=== PATIENT | female | born 1970 | race Caucasian/White ===

== ENCOUNTER 2016-08-04 14:51 | Day surgery (SDC) | payer BC, OTHER ==
[~2016-08-04] VITALS: Ht 154.9 cm; Wt 108.9 kg
[2016-08-04] MEDS ORDERED: ONDANSETRON 4MG/2ML VIAL (J2405) As Ordered ONE ×3 (15:49→20:31)
[2016-08-04] MEDS ORDERED: KETOROLAC 30 MG/ML VIAL (J1885) As Ordered ONE (15:49)
[2016-08-04 15:58] LABS: BASO # 0.1 K/mm3 (0.0-0.2); BASO % 0.9 % (0.0-1.0); EOS # 0.1 K/mm3 (0.0-0.50); EOS % 0.7 % (0.0-3.0); LARGE UNSTAINED CELL # 0.1 K/mm3 (0.0-0.4); LARGE UNSTAINED CELL % 0.5 % (0.0-4.0); LYMPH # 1.4 K/mm3 (1.5-4.5); LYMPH % 10.5 % (24.0-44.0); MEAN CORPUSCULAR HEMOGLOBIN 26.9 pg (27.0-33.0); MEAN CORPUSCULAR HGB CONC 32.1 g/dl (32.0-36.5); MEAN CORPUSCULAR VOLUME 83.8 fl (80.0-96.0); MONO # 0.4 K/mm3 (0.0-0.8); MONO % 2.8 % (0.0-5.0); NEUTROPHILS # 10.4 K/mm3 (1.8-7.7); NEUTROPHILS % 84.6 % (36.0-66.0); PLATELET COUNT, AUTOMATED 282 k/mm3 (150-450); WHITE BLOOD COUNT 12.3 K/mm3 (4.0-10.0)
[2016-08-04 16:12] LABS: ALBUMIN 3.5 GM/DL (3.2-5.2); ALBUMIN/GLOBULIN RATIO 0.85 (1.00-1.93); ALKALINE PHOSPHATASE 86 U/L (45-117); ALT/SGPT 19 U/L (12-78); ANION GAP 11 MEQ/L (8-16); AST/SGOT 13 U/L (15-37); BILIRUBIN,DIRECT 0.2 MG/DL (0.0-0.2); BILIRUBIN,TOTAL 0.8 MG/DL (0.2-1.0); BLOOD UREA NITROGEN 11 MG/DL (7-18); CALCIUM LEVEL 8.7 MG/DL (8.5-10.1); CARBON DIOXIDE LEVEL 24 MEQ/L (21-32); CHLORIDE LEVEL 105 MEQ/L (98-107); CREATININE FOR GFR 0.77 MG/DL (0.55-1.02); GLOMERULAR FILTRATION RATE > 60.0 (>58); GLUCOSE, FASTING 95 MG/DL (70-105); POTASSIUM SERUM 3.6 MEQ/L (3.5-5.1); SODIUM LEVEL 140 MEQ/L (136-145); TOTAL PROTEIN 7.6 GM/DL (6.4-8.2)
[2016-08-04] MEDS ORDERED: ISOVUE-370 76% 100ML VIAL (Q9967) As Ordered ONE (16:27)
--- NOTE | 2016-08-04 17:36 | REP ---
CT abdomen pelvis with IV contrast but without bowel contrast for appendicitis: Comparison is 09/13/2006. The appendix is elongated. There is a 5 ml calcification in the mid appendix as an interval change. The appendix is distended proximal to the calcification measuring 13 mm transverse diameter. Distal to the calcification. The appendix is nondistended. There is no evidence of appendiceal rupture. Findings are compatible with mid appendiceal obstruction and ensuing appendicitis. No inflammatory changes are identified at this time. The visualized lung lantigua are clear. The liver, pancreas and spleen are unremarkable. There is a cholecystectomy. The adrenals, kidneys, abdominal aorta, bowel and mesentery are otherwise unremarkable. Pelvis: There is no ascites. The the patient reportedly has a hysterectomy. Vaginal cuff and adnexa are unremarkable. There is no adenopathy. The pelvic bowel loops are unremarkable. Impression: Distension of the proximal appendix from a calculus at the mid appendix level without appendiceal inflammation or perforation at this time. The distal appendix is unremarkable. Findings are compatible with ensuing acute appendicitis. Signed by Dennis Grossman MD 08/04/2016 05:27 P
[2016-08-04] MEDS ORDERED: ZOSYN 3.375 GM VIAL (J2543) As Ordered ONE (17:50)
[2016-08-04] MEDS ORDERED: SYNT175T2 PO (18:10)
[2016-08-04] MEDS ORDERED: CALC600T10 PO (18:10)
[2016-08-04] MEDS ORDERED: ALBU83IN INH (18:10)
[2016-08-04] MEDS ORDERED: BREO1INH INH (18:10)
[2016-08-04] MEDS ORDERED: ALBU17IN INH (18:10)
[2016-08-04] MEDS ORDERED: SING10TA32 PO (18:10)
[2016-08-04] MEDS ORDERED: OMEP20CA3 PO (18:10)
[2016-08-04] MEDS ORDERED: ESTR1TAB PO (18:10)
[2016-08-04] MEDS ORDERED: MAGN500T2 PO (18:10)
[2016-08-04] MEDS ORDERED: FLUO40CA PO (18:10)
[2016-08-04] MEDS ORDERED: MORPHINE 4 MG/ML 1ML SYRINGE As Ordered ONE (19:15)
[2016-08-04] MEDS ORDERED: METOCLOPRAMIDE INJ 10MG/2ML VIAL (J2765) As Ordered ONE (19:16)
[2016-08-04] MEDS ORDERED: LIDOCAINE 1% SDV INJ 30 ML VIAL As Ordered ONE (19:40)
[2016-08-04] MEDS ORDERED: BUPIVACAINE HCL 0.25% 30 ML VIAL As Ordered ONE (19:41)
[2016-08-04] MEDS ORDERED: MIDAZOLAM INJ 2 MG/2 ML VIAL (J2250) As Ordered ONE (19:43)
[2016-08-04] MEDS ORDERED: fentaNYL 100 MCG/2 ML INJECTION (J3010) As Ordered ONE (19:44)
--- NOTE | 2016-08-04 19:57 | EDDOCDS ---
Physician Documentation [facility] Name: Arabella Cleveland Age: 46 yrs Sex: Female : 1970 Arrival Date: 08/04/2016 Time: 14:51 Bed I3 / M3 Private MD: Linh Murillo Disposition: 08/04/16 17:46 Hospitalization ordered by Ian Silva for Inpatient Admission. Preliminary diagnosis is Acute appendicitis. - Bed requested for Admit. - Status is Inpatient Admission. jo3 - Condition is Stable. - Problem is new. - Symptoms are unchanged. Historical: - Allergies: No known drug Allergies; - Home Meds: 1. brieo daily 2. estradiol 0.5 mg Oral tab once daily 3. Proventil Inhl 2.5 mg three times a day 4. Prozac 40 mg Oral cap 1 cap once daily 5. Singulair 10 mg Oral tab 1 tab once daily 6. Synthroid 75 mcg oral tab once daily - PMHx: Asthma; Depression; COPD; Hypertension; Hypothyroidism; - PSHx: Tonsillectomy; ; Cholecystectomy; Hysterectomy; Adenoidectomy; Laparoscopy; - Social history: Smoking status: Patient states was never smoker of tobacco. No barriers to communication noted, The patient speaks fluent [place] Citizen, Speaks appropriately for age. - Family history: Not pertinent. - : The pt / caregiver states he / she is not on anticoagulants. Home medication list is obtained from [employer] import data. - Exposure Risk Screening:: None identified. 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 1 in. (154.94 cm); Pain 3/10; 17:27 BP 118 / 64; Pulse 70; Resp 18; Temp 97(O); Pulse Ox 97% ; srm 19:46 BP 116 / 59; Pulse 80; Resp 16; Temp 97.5(O); Pulse Ox 95% on R/A; Pain 3/10; lf1 14:53 Body Mass Index 45.35 (108.86 kg, 154.94 cm) elp MDM: 15:06 Urinalysis Ordered. EDMS 15:06 Urine Culture Ordered. EDMS 15:39 NS 0.9% 1000 ml IV at bolus once ordered. cc10 15:39 Ondansetron 4 mg IVP once ordered. cc10 15:39 ketorolac 30 mg IVP once ordered. cc10 15:39 IV Saline Lock ordered. cc10 15:39 Undress patient appropriately for examination ordered. cc10 15:40 Basic Metabolic Profile Ordered. EDMS 15:40 CBC with Diff Ordered. EDMS 15:40 Lipase Ordered. EDMS 15:40 Liver Profile Ordered. EDMS 15:40 CT ABD & PELVIS: IV Contrast Only Ordered. EDMS 15:40 NOTHING BY MOUTH+DIET ordered. EDMS 16:02 Financial registration complete. zo 16:03 [facility] Payment Agreement was scanned into [employer] and attached to record. zo 16:04 CBC with Diff Reviewed. mo1 16:24 Liver Profile Reviewed. mo1 16:24 Basic Metabolic Profile Reviewed. mo1 16:25 Lipase Reviewed. mo1 17:20 Urinalysis Reviewed. mo1 17:43 Piperacillin-Tazobactam 3.375 grams IVPB once over 30 mins; dilute in 50mL of NS or D5W mo1 ordered. 17:44 BED REQUEST+ADM ordered. EDMS 18:52 Ondansetron 4 mg IVP once ordered. mo1 19:12 Metoclopramide 10 mg IV at 40 mg/hr once over 15 mins ordered. mo1 19:12 morphine 4 mg IVP once ordered. mo1 Administered Medications: 15:54 Drug: NS 0.9% 1000 ml Route: IV; Rate: bolus; Site: left antecubital; [facility] 18:25 Follow up: IV Status: Completed infusion; IV Intake: 1000ml [facility] 15:55 Drug: Ondansetron 4 mg Route: IVP; Site: left antecubital; [facility] 15:55 Drug: ketorolac 30 mg [ketorolac 30 mg/mL (1 mL) injection solution (1 mL)] Route: IVP; [facility] Site: left antecubital; 18:00 Drug: Piperacillin-Tazobactam 3.375 grams [piperacillin-tazobactam 3.375 gram [facility] intravenous solution] Route: IVPB; Infused Over: 30 mins; Site: left antecubital; 18:56 Drug: Ondansetron 4 mg Route: IVP; Site: left antecubital; k 19:25 Drug: morphine 4 mg [morphine 4 mg/mL intravenous cartridge (1 mL)] Route: IVP; Site: jo3 left antecubital; 19:30 Drug: Metoclopramide 10 mg [metoclopramide 5 mg/mL injection solution] Route: IV; Rate: jo3 40 mg/hr; Infused Over: 15 mins; Site: left antecubital; Signatures: Dispatcher [employer] EDSami Sarabia RN RN jamik Kassie HoffmanRN RN ck1 Letty PaulRN RN jo3 Miriam Ventura Michael, PA PA mo1 Neil Jarrett PA-C PA-C cc10 Apryl Woods PA-C PA-C dt4 The chart was reviewed and I authenticate all verbal orders and agree with the evaluation and treatment provided.Corrections: (The following items were deleted from the chart) 15:39 15:05 UCG by Nursing ordered. dt4 cc10 Attachments: 16:03 [facility] Payment Agreement zo MTDD
--- NOTE | 2016-08-04 19:58 | EDDOCDS ---
Nurse's Notes [facility] Name: Arabella Cleveland Age: 46 yrs Sex: Female : 1970 Arrival Date: 08/04/2016 Time: 14:51 Bed I3 / M3 Private MD: Linh Murillo Diagnosis: Acute appendicitis Presentation: 08/04 14:55 Presenting complaint: Patient states: right lower abdominal pain radiating to right ck1 flank. Acute neurological deficits are not present. Mechanism of Injury: No Mechanism of Injury. Adult Sepsis Screening: The patient does not have new or worsening altered mentation. Patient's respiratory rate is less than 22. Systolic blood pressure is greater than 100. Patient has a qSOFA score of 0- Negative Sepsis Screen. Suicide/Homicide risk assessment- the patient denies having any suicidal and/or homicidal ideations and does not present with any other emotional, behavioral or mental health complaints. Status: Patient is not a tax services professional or dependent. Transition of care: patient was not received from another setting of care. 14:55 Acuity: STEVEN Level 3 ck1 14:55 Method Of Arrival: Walkin/Carried/Asstd ck1 Triage Assessment: 14:57 General: Appears in no apparent distress, comfortable, Behavior is appropriate for age, ck1 cooperative. Pain: Location: right lower quadrant Pain currently is 3 out of 10 on a pain scale. Pain radiates to right flank. HIV screening NA for this visit Offered previously. Respiratory: Respiratory effort is unlabored, Respiratory pattern is regular, symmetrical. GI: Reports diarrhea, nausea, vomiting. : Reports burning with urination. Derm: Skin is intact, is healthy with good turgor, Skin is pink, warm & dry. Musculoskeletal: Circulation, motion, and sensation intact Range of motion intact in all extremities. 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 brieo daily 2. estradiol 0.5 mg Oral tab once daily 3. Proventil Inhl 2.5 mg three times a day 4. Prozac 40 mg Oral cap 1 cap once daily 5. Singulair 10 mg Oral tab 1 tab once daily 6. Synthroid 75 mcg oral tab once daily - PMHx: Asthma; Depression; COPD; Hypertension; Hypothyroidism; - PSHx: Tonsillectomy; ; Cholecystectomy; Hysterectomy; Adenoidectomy; Laparoscopy; - Social history: Smoking status: Patient states was never smoker of tobacco. No barriers to communication noted, The patient speaks fluent Citizen [place], Speaks appropriately for age. - Family history: Not pertinent. - : The pt / caregiver states he / she is not on anticoagulants. Home medication list is obtained from [employer] import data. - Exposure Risk Screening:: None identified. Screenin:55 Screening information is obtained from the patient. Fall risk: No risks identified. erin Assistance ADL's: requires no assistance with activities of daily living. Abuse/DV Screen: The patient / caregiver reports he/she is: not in a situation that causes fear, pain or injury. Nutritional screening: No deficits noted. home support is adequate. 19:46 Advance Directives: Currently, there is no health care proxy. There is no active DNR lf1 order. There is no living will. There is no Power of Fire And Safety Helper. Assessment: 15:55 General: Appears in no apparent distress, skin warm and dry color satisfactory. Moist [facility] pink oral mucosa. Obese abdomen that is non distended with bowel sounds present x 4. Reports right flank,k discomfort and is presently unable to produce urine.. GI: Abdomen is non- distended obese, Bowel sounds present X 4 quads. Abd is soft Abd is non tender. 16:52 General: Appears CT completed and tolerated well. states pain has decreased to 1/10.. [facility] 18:00 General: Appears states 4/10 discomfort and declining pain meds when offered. [facility] 18:55 General: Appears again reports that pian is increasing. declined meds when offered. lloyd medicated for nausea without emesis. [place] here. 19:46 General: Appears in no apparent distress, comfortable, Behavior is cooperative. Pain: lf1 Location: right flank and abdomen and right lower quadrant Pain currently is 3 out of 10 on a pain scale. Neurological: Level of Consciousness is awake, alert, obeys commands, Oriented to person, place, time, Speech is normal. EENT: No deficits noted. Cardiovascular: Chest pain is denied. Respiratory: Respiratory effort is even, unlabored. GI: Denies nausea, vomiting. Derm: Skin is normal. Musculoskeletal: No deficits noted. Injury Description: No known injury. Vital Signs: 14:53 BP 136 / 97; Pulse 108; Resp 20; Temp 98.4; Pulse Ox 98% ; Weight 108.86 kg; Height 5 elp ft. 1 in. (154.94 cm); Pain 3/10; 17:27 BP 118 / 64; Pulse 70; Resp 18; Temp 97(O); Pulse Ox 97% ; srm 19:46 BP 116 / 59; Pulse 80; Resp 16; Temp 97.5(O); Pulse Ox 95% on R/A; Pain 3/10; lf1 14:53 Body Mass Index 45.35 (108.86 kg, 154.94 cm) elp Vitals: 14:53 Log In Time: August 04, 2016 at 14:51. [facility] ED Course: 14:52 Patient visited by Leonela Garner PCA. elp 14:52 Patient moved to Waiting elp 14:53 Linh Murillo is Private Physician. elp 14:53 Patient visited by Leonela Garner PCA. elp 14:53 Patient moved to Pre RCE elp 14:56 Triage Initiated ck1 15:16 Patient moved to Triage 2 rs6 15:35 Patient visited by Kassie Hoffman RN. ck1 15:36 [facility] cc10 15:36 Paolo Sethi MD is Attending Physician. cc10 15:36 Patient visited by Neil Jarrett PA-C. cc10 15:36 Patient visited by Neil Jarrett PA-C. cc10 15:38 Patient moved to I3 / M3 [facility] 15:55 The patient / caregiver is instructed regarding the plan of care and ED course. jmk 15:58 Patient visited by Sami Jameson RN. jmk 16:01 Patient name changed from Arabella\S\Elissa\S\Cleveland\S\ to Arabella\S\ \S\Cleveland. EDMS 16:03 [facility] [place] Payment Agreement was scanned into [employer] and attached to record. zo 16:04 PHCP role handed off by Neil Jarrett PA-C mo1 16:04 Paul Stanley PA is PHCP. mo1 16:58 Patient visited by Sami Jameson RN. jmk 16:58 Urine Culture Sent. jmk 16:58 Urinalysis Sent. jmk 17:28 Patient visited by Lluvia Frankel, ELIAS. srm 17:46 Ian Silva MD is Hospitalizing Provider. mo1 17:46 CT ABD & PELVIS: IV Contrast Only Returned. EDMS 18:01 Patient visited by Sami Jameson,RN. jmk 18:25 Patient visited by Sami Jameson,RN. k 18:56 Patient visited by Sami Jameson,ELIAS. jmk 18:[address] mtz. srm 19:46 IV is intact, #20 Left AC. No procedures done that require assistance. lf1 Administered Medications: 15:54 Drug: NS 0.9% 1000 ml Route: IV; Rate: bolus; Site: left antecubital; k 18:25 Follow up: IV Status: Completed infusion; IV Intake: 1000ml [facility] 15:55 Drug: Ondansetron 4 mg Route: IVP; Site: left antecubital; [facility] 15:55 Drug: ketorolac 30 mg [ketorolac 30 mg/mL (1 mL) injection solution (1 mL)] Route: IVP; [facility] Site: left antecubital; 18:00 Drug: Piperacillin-Tazobactam 3.375 grams [piperacillin-tazobactam 3.375 gram [facility] intravenous solution] Route: IVPB; Infused Over: 30 mins; Site: left antecubital; 18:56 Drug: Ondansetron 4 mg Route: IVP; Site: left antecubital; [facility] 19:25 Drug: morphine 4 mg [morphine 4 mg/mL intravenous cartridge (1 mL)] Route: IVP; Site: jo3 left antecubital; 19:30 Drug: Metoclopramide 10 mg [metoclopramide 5 mg/mL injection solution] Route: IV; Rate: jo3 40 mg/hr; Infused Over: 15 mins; Site: left antecubital; Intake: 18:25 IV: 1000.00ml; Total: 1000.00ml. [facility] Order Results: Lab Order: Urinalysis; SPEC'M 08/04/16 16:51 Test: APPEARANCE, URINE; Value: HAZY; Range: CLEAR; Status: F Test: COLOR, URINE; Value: DENISE; Range: YELLOW; Status: F Test: PH,URINE; Value: 5.0; Range: 5.0-9.0; Units: UNITS; Status: F Test: SPECIFIC GRAVITY URINE AUTO; Value: 1.028; Range: 1.002-1.035; Status: F Test: PROTEIN, URINE AUTO; Value: 1+; Range: NEGATIVE; Abnormal: Above high normal; Units: mg/dL; Status: F Test: GLUCOSE, URINE (UA) AUTO; Value: NEGATIVE; Range: NEGATIVE; Units: mg/dL; Status: F Test: KETONE, URINE AUTO; Value: TRACE; Range: NEGATIVE; Abnormal: Above high normal; Units: mg/dL; Status: F Test: UROBILINOGEN, URINE AUTO; Value: 0.2; Range: 0.0-2.0; Units: mg/dL; Status: F Test: BILIRUBIN, URINE AUTO; Value: NEGATIVE; Range: NEGATIVE; Status: F Test: NITRITE, URINE AUTO; Value: NEGATIVE; Range: NEGATIVE; Status: F Test: LEUKOCYTE ESTERASE, URINE AUTO; Value: NEGATIVE; Range: NEGATIVE; Status: F Test: BLOOD, URINE BLOOD; Value: NEGATIVE; Range: NEGATIVE; Status: F Test: WBC, URINE AUTO; Value: 2; Range: 0-3; Units: /HPF; Status: F Test: RBC, URINE AUTO; Value: 0; Range: 0-3; Units: /HPF; Status: F Test: BACTERIA, URINE AUTO; Value: 1+; Range: NEGATIVE; Abnormal: Above high normal; Status: F Test: SQUAMOUS EPITHELIAL CELL UR AU; Value: 3; Range: 0-6; Units: /HPF; Status: F Test: MUCUS, URINE; Value: LARGE; Range: NEGATIVE; Status: F Test: HYALINE CAST, URINE AUTO; Value: 0; Range: 0-1; Units: /LPF; Status: F Lab Order: Basic Metabolic Profile; SPEC'M 08/04/16 15:46 Test: GLUCOSE, FASTING; Value: 95; Range: 70-105; Units: MG/DL; Status: F Test: BLOOD UREA NITROGEN; Value: 11; Range: 7-18; Units: MG/DL; Status: F Test: CREATININE FOR GFR; Value: 0.77; Range: 0.55-1.02; Units: MG/DL; Status: F Test: GLOMERULAR FILTRATION RATE; Value: > 60.0; Range: >58; Status: F Test: SODIUM LEVEL; Value: 140; Range: 136-145; Units: MEQ/L; Status: F Test: POTASSIUM SERUM; Value: 3.6; Range: 3.5-5.1; Units: MEQ/L; Status: F Test: CHLORIDE LEVEL; Value: 105; Range: 98-107; Units: MEQ/L; Status: F Test: CARBON DIOXIDE LEVEL; Value: 24; Range: 21-32; Units: MEQ/L; Status: F Test: ANION GAP; Value: 11; Range: 8-16; Units: MEQ/L; Status: F Test: CALCIUM LEVEL; Value: 8.7; Range: 8.5-10.1; Units: MG/DL; Status: F Test Note: ; Units are mL/min/1.73 m2 Chronic Kidney Disease Staging per NKF: Stage I & II GFR >=60 Normal to Mildly Decreased Stage III GFR 30-59 Moderately Decreased Stage IV GFR 15-29 Severely Decreased Stage V GFR <15 Very Little GFR Left ESRD GFR <15 on NUCLEAR TECHNICIAN Lab Order: CBC with Diff; SPEC'M 08/04/16 15:46 Test: WHITE BLOOD COUNT; Value: 12.3; Range: 4.0-10.0; Abnormal: Above high normal; Units: K/mm3; Status: F Test: RED BLOOD COUNT; Value: 5.37; Range: 4.00-5.40; Units: M/mm3; Status: F Test: HEMOGLOBIN; Value: 14.4; Range: 12.0-16.0; Units: g/dl; Status: F Test: HEMATOCRIT; Value: 45.0; Range: 36.0-47.0; Units: %; Status: F Test: MEAN CORPUSCULAR VOLUME; Value: 83.8; Range: 80.0-96.0; Units: fl; Status: F Test: MEAN CORPUSCULAR HEMOGLOBIN; Value: 26.9; Range: 27.0-33.0; Abnormal: Below low normal; Units: pg; Status: F Test: MEAN CORPUSCULAR HGB CONC; Value: 32.1; Range: 32.0-36.5; Units: g/dl; Status: F Test: RED CELL DISTRIBUTION WIDTH; Value: 15.0; Range: 11.5-14.5; Abnormal: Above high normal; Units: %; Status: F Test: PLATELET COUNT, AUTOMATED; Value: 282; Range: 150-450; Units: k/mm3; Status: F Test: NEUTROPHILS %; Value: 84.6; Range: 36.0-66.0; Abnormal: Above high normal; Units: %; Status: F Test: LYMPH %; Value: 10.5; Range: 24.0-44.0; Abnormal: Below low normal; Units: %; Status: F Test: MONO %; Value: 2.8; Range: 0.0-5.0; Units: %; Status: F Test: EOS %; Value: 0.7; Range: 0.0-3.0; Units: %; Status: F Test: BASO %; Value: 0.9; Range: 0.0-1.0; Units: %; Status: F Test: LARGE UNSTAINED CELL %; Value: 0.5; Range: 0.0-4.0; Units: %; Status: F Test: NEUTROPHILS #; Value: 10.4; Range: 1.8-7.7; Abnormal: Above high normal; Units: K/mm3; Status: F Test: LYMPH #; Value: 1.4; Range: 1.5-4.5; Abnormal: Below low normal; Units: K/mm3; Status: F Test: MONO #; Value: 0.4; Range: 0.0-0.8; Units: K/mm3; Status: F Test: EOS #; Value: 0.1; Range: 0.0-0.50; Units: K/mm3; Status: F Test: BASO #; Value: 0.1; Range: 0.0-0.2; Units: K/mm3; Status: F Test: LARGE UNSTAINED CELL #; Value: 0.1; Range: 0.0-0.4; Units: K/mm3; Status: F Lab Order: Lipase; SPEC'M 08/04/16 15:46 Test: LIPASE; Value: 72; Range: 73-393; Abnormal: Below low normal; Units: U/L; Status: F Lab Order: Liver Profile; SPEC'M 08/04/16 15:46 Test: AST/SGOT; Value: 13; Range: 15-37; Abnormal: Below low normal; Units: U/L; Status: F Test: ALT/SGPT; Value: 19; Range: 12-78; Units: U/L; Status: F Test: ALKALINE PHOSPHATASE; Value: 86; Range: 45-117; Units: U/L; Status: F Test: BILIRUBIN,TOTAL; Value: 0.8; Range: 0.2-1.0; Units: MG/DL; Status: F Test: BILIRUBIN,DIRECT; Value: 0.2; Range: 0.0-0.2; Units: MG/DL; Status: F Test: TOTAL PROTEIN; Value: 7.6; Range: 6.4-8.2; Units: GM/DL; Status: F Test: ALBUMIN; Value: 3.5; Range: 3.2-5.2; Units: GM/DL; Status: F Test: ALBUMIN/GLOBULIN RATIO; Value: 0.85; Range: 1.00-1.93; Abnormal: Below low normal; Status: F Radiology Order: CT ABD & PELVIS: IV Contrast Only Test: CT ABD & PELVIS: IV Contrast Only REASON FOR EXAMINATION: Appendicitis; CT abdomen pelvis with IV contrast but without bowel contrast for appendicitis:; ; Comparison is 09/13/2006.; ; The appendix is elongated. There is a 5 ml calcification in the mid appendix as; an interval change. The appendix is distended proximal to the calcification; measuring 13 mm transverse diameter. Distal to the calcification. The appendix; is nondistended. There is no evidence of appendiceal rupture. Findings are; compatible with mid appendiceal obstruction and ensuing appendicitis. No; inflammatory changes are identified at this time.; ; The visualized lung lantigua are clear.; ; The liver, pancreas and spleen are unremarkable. There is a cholecystectomy.; ; The adrenals, kidneys, abdominal aorta, bowel and mesentery are otherwise; unremarkable.; ; Pelvis:; ; There is no ascites. The the patient reportedly has a hysterectomy. Vaginal; cuff and adnexa are unremarkable. There is no adenopathy. The pelvic bowel; loops are unremarkable.; ; Impression:; ; Distension of the proximal appendix from a calculus at the mid appendix level; without appendiceal inflammation or perforation at this time. The distal; appendix is unremarkable. Findings are compatible with ensuing acute; appendicitis.; ; ; ; ; Signed by; Dennis Grossman MD 08/04/2016 05:27 P; Outcome: 17:46 Decision to Hospitalize by Provider. mo1 19:56 Patient left the ED. jo3 Signatures: Dispatcher [employer] EDMS Sami Jameson,RN RN Lluvia Brady RN RN [facility] BetiKassie Carson,RN RN ck1 Letty PaulRN RN jo3 Miriam Ventura Lisa, RN RN 1 Rachel BrewerRN RN [facility] Paul Stanley PA PA mo1 Leonela Graner, CLAIMS ADJUSTER SUPERVISOR CLAIMS ADJUSTER SUPERVISOR elp Neil Jarrett, PA-C PA-C cc10 Macie Julian, CLAIMS ADJUSTER SUPERVISOR CLAIMS ADJUSTER SUPERVISOR rs6 [id number]
[2016-08-04] MEDS ORDERED: PROPOFOL 200 MG/20 ML VIAL As Ordered ONE (20:31)
[2016-08-04] MEDS ORDERED: KETOROLAC 60 MG/2 ML VIAL (J1885) As Ordered ONE (20:31)
[2016-08-04] MEDS ORDERED: dexameTHASONE 4 MG/ML 1ML VIAL (J1100) As Ordered ONE (20:31)
[2016-08-04] MEDS ORDERED: ROCURONIUM BROMIDE 50 MG/5 ML VIAL As Ordered ONE (20:31)
[2016-08-04] MEDS ORDERED: GLYCOPYRROLATE INJ 0.2 MG/ML 2 ML VIAL As Ordered ONE ×2 (20:40→21:32)
[2016-08-04] MEDS ORDERED: BUPIVACAINE HCL 0.25% 30 ML VIAL XX ONE (20:42)
[2016-08-04] MEDS ORDERED: LIDOCAINE 1% SDV INJ 30 ML VIAL XX ONE (20:42)
[2016-08-04] MEDS ORDERED: DESFLURANE 240 ML INHALANT As Ordered ONE (20:44)
[2016-08-04] MEDS ORDERED: MONTELUKAST 10 MG TAB PO SCH (21:00)
[2016-08-04] MEDS ORDERED: HYDROmorphone HCL 2 MG/ML 1ML VIAL (J1170) As Ordered ONE (21:09)
[2016-08-04] MEDS ORDERED: NEOSTIGMINE 1MG/ML 5 ML SYRINGE (J2710) As Ordered ONE (21:32)
[2016-08-04] MEDS ORDERED: LR 1,000 ML IV SCH ×2 (21:48→22:15)
[2016-08-04] MEDS ORDERED: NORCO, ANEXSIA 5/325MG TABLET (HYDROcodone/ACETAMINOPHEN) PO PRN (22:00)
[2016-08-04] MEDS ORDERED: ACETAMINOPHEN TAB 650MG DOSE (2X325MG) PO PRN (22:00)
[2016-08-04] MEDS ORDERED: ALBUTEROL SULFATE 2.5 MG/0.5 ML INH NEB SOLN NEB PRN (22:00)
[2016-08-04] MEDS ORDERED: ONDANSETRON 4MG/2ML VIAL (J2405) IV PRN ×2 (22:00→22:15)
[2016-08-04] MEDS ORDERED: MORPHINE 4 MG/ML 1ML SYRINGE IV PRN (22:00)
[2016-08-04] MEDS ORDERED: KETOROLAC 30 MG/ML VIAL (J1885) IV PRN (22:15)
[2016-08-04] MEDS ORDERED: HYDROmorphone HCL 1 MG/ML SYRINGE (J1170) IV PRN (22:15)
[2016-08-04] MEDS ORDERED: fentaNYL 100 MCG/2 ML INJECTION (J3010) IV PRN (22:15)
[2016-08-04] MEDS ORDERED: METOCLOPRAMIDE INJ 10MG/2ML VIAL (J2765) IV PRN (22:15)
[2016-08-04 22:43] VITALS: BP 145/81
[2016-08-04] MEDS: SENOKOT S TAB PO SCH (23:11)
[2016-08-04] MEDS: PIPERACILLIN/TAZOBACTAM SOD 3.375 GM in D5W MINI-BAG PLUS 50 ML IV SCH (23:11)
[2016-08-04 23:13] VITALS: BP 126/72
[2016-08-04] MEDS: ALBUTEROL 90 MCG/ACT 8GM HFA INHALER INH SCH (23:42)
[2016-08-05 00:13] VITALS: BP 119/73
[2016-08-05 01:13] VITALS: BP 115/63
[2016-08-05] MEDS: KETOROLAC 30 MG/ML VIAL (J1885) IV SCH ×2 (01:18→08:07)
[2016-08-05 04:00] VITALS: BP 119/67
[2016-08-05] MEDS ORDERED: LEVOTHYROXINE 0.075 MG TAB (75 MCG) PO SCH (06:00)
[2016-08-05] MEDS: NORCO, ANEXSIA 5/325MG TABLET (HYDROcodone/ACETAMINOPHEN) PO PRN ×2 (06:48→11:59)
[2016-08-05] MEDS: PIPERACILLIN/TAZOBACTAM SOD 3.375 GM in D5W MINI-BAG PLUS 50 ML IV SCH ×2 (06:49→11:59)
[2016-08-05 06:55] LABS: BASO % 0.2 % (0.0-1.0); EOS % 0.4 % (0.0-3.0); LARGE UNSTAINED CELL # 0.1 K/mm3 (0.0-0.4); LARGE UNSTAINED CELL % 1.3 % (0.0-4.0); LYMPH # 1.2 K/mm3 (1.5-4.5); LYMPH % 16.8 % (24.0-44.0); MEAN CORPUSCULAR HEMOGLOBIN 27.4 pg (27.0-33.0); MEAN CORPUSCULAR HGB CONC 32.9 g/dl (32.0-36.5); MONO # 0.2 K/mm3 (0.0-0.8); MONO % 2.8 % (0.0-5.0); NEUTROPHILS # 5.5 K/mm3 (1.8-7.7); NEUTROPHILS % 78.4 % (36.0-66.0); PLATELET COUNT, AUTOMATED 243 k/mm3 (150-450); RED CELL DISTRIBUTION WIDTH 13.7 % (11.5-14.5)
[2016-08-05 07:25] LABS: ANION GAP 8 MEQ/L (8-16); BLOOD UREA NITROGEN 11 MG/DL (7-18); CARBON DIOXIDE LEVEL 24 MEQ/L (21-32); CHLORIDE LEVEL 105 MEQ/L (98-107); CREATININE FOR GFR 0.77 MG/DL (0.55-1.02); GLOMERULAR FILTRATION RATE > 60.0 (>58); GLUCOSE, FASTING 117 MG/DL (70-105); POTASSIUM SERUM 4.1 MEQ/L (3.5-5.1); SODIUM LEVEL 137 MEQ/L (136-145)
[2016-08-05] MEDS: ALBUTEROL 90 MCG/ACT 8GM HFA INHALER INH SCH ×2 (07:28→12:08)
[2016-08-05 08:00] VITALS: BP 111/58
[2016-08-05] MEDS: SENOKOT S TAB PO SCH (08:07)
--- NOTE | 2016-08-05 08:26 | HPE ---
DATE OF ADMISSION: 08/04/2016 CHIEF COMPLAINT: Abdominal pain. HISTORY OF PRESENT ILLNESS: Ms. Cleveland is a 46-year-old female who presented herself to emergency department today with about 1-day history of abdominal pain , it started last night. Was vague and crampy, this morning localized to the right lower quadrant and her right flank associated with nausea though no vomiting. No fevers or chills reported. No sick contacts reported. No prior episodes of similar symptoms. Due to persistence of systems, she presented herself to the emergency room. ALLERGIES: No known drug allergies. HOME MEDICATIONS: - albuterol sulfate - Ventolin HFA two puffs inhalation every 4 hours as needed - albuterol sulfate 2.5 mg per 3 mL nebulizer every 4 hours as needed for shortness of breath - calcium 600 mg tablet, 600 mg by mouth daily - Estradiol 1 mg by mouth daily - fluoxetine 40 mg capsule daily - Breo Ellipta one puff inhalation daily - Synthroid 175 mcg by mouth daily - magnesium oxide 500 mg daily - montelukast 10 mg by mouth daily - omeprazole 20 mg by mouth daily PAST MEDICAL HISTORY: Includes: 1. Asthma. 2. Hypothyroidism. PAST SURGICAL HISTORY: Includes: 1. Tonsillectomy and adenoidectomy. 2. Multiple laparoscopies 3. . 4. Hysterectomy for fibroids. 5. Cholecystectomy. REVIEW OF SYSTEMS: The patient feels well prior to the episode that started last night. Reports some minimal weight loss. Denies fevers, chills. Denies headaches. Denies problems with vision or hearing. The patient denies any hoarseness in her voice. Denies any problems with swallowing. Denies neck pains. The patient denies any chest pains, palpitations, paroxysmal nocturnal dyspnea or orthopnea. The patient has significant history of asthma but has been fairly well-controlled for the past year. No recent ED visits. Gastrointestinal symptoms enumerated in history of present illness. The patient denies dysuria, hematuria, nocturia. Denies any history of diabetes. Has hypothyroidism on medication. Denies polydipsia, polyphagia or polyuria. The patient denies any bleeding or clotting disorder. The patient had some mild depression. Denies anxiety disorder. EXAMINATION: The patient seen in the emergency room laying flat on the bed fairly comfortable. No acute distress. Skin is warm and dry. Normocephalic, atraumatic. Has a pink palpebral conjunctivae. Nonicteric sclera. Lips appear mildly dry. Neck is short but supple. No obvious thyromegaly. Lungs sounds are clear to auscultation bilaterally. No wheezing appreciated. Heart rate and rhythm are regular with no murmurs. Abdomen is moderately obese, rounded but nondistended, tender over the right lower quadrant area going towards the right flank area. Mild guarding. No rebound. Nontender on the left side. Extremities so not show any deformities, edema or cyanosis. LABORATORY: White cell count is 12.3, hemoglobin 14.4, hematocrit of 45, platelet count is 282, neutrophils are 85%. Chemistry: Sodium is 140, potassium 3.6, chloride 105, CO2 of 24, BUN of 11, creatinine of 0.77, AST 13, ALT 19, total bilirubin 0.8, albumin 3.5, lipase 72. IMAGING STUDIES: CT of the abdomen and pelvis was done without contrast. This shows distension of proximal appendix from a calculus at the mid appendix level without appendiceal inflammation or perforation, distention. Distal appendix is unremarkable. Findings compatible with early acute appendicitis. IMPRESSION: 1. Acute appendicitis 2. Morbid obesity with BMI of 45.3 3. Asthma stable The patient has been started on Zosyn. This should be adequate coverage for the appendicitis. She will be taken to the operating room once the room is available. We are planning to perform laparoscopic appendectomy. The patient has been made aware of the risks and benefits of the procedure and expected postoperative course and this seems to be early and noncomplicated appendicitis. I expect the patient to stay overnight for continued perioperative antibiotics and pain control, most likely will be able to go home the next day. KAITLYNN
[2016-08-05] MEDS ORDERED: FLUoxetine 20 MG CAP PO SCH (09:00)
--- NOTE | 2016-08-05 10:09 | RO ---
DATE OF PROCEDURE: 08/04/2016 PREOPERATIVE DIAGNOSIS: Acute appendicitis. DIAGNOSIS: Acute appendicitis. PROCEDURE PERFORMED: Laparoscopic appendectomy. SURGEON: Dr. Ian Silva SOAP DRIER TENDER: ANESTHESIA: General anesthesia. ESTIMATED BLOOD LOSS: Less than 25 mL. COMPLICATIONS: None. REMARKS: The patient tolerated the procedure well. FINDINGS: Appendix dilated distally, but not much inflammatory findings. My laparoscopic shanell broke off, but the broken part was retrieved. PROCEDURE NOTE: Ms. Cleveland is a 46-year-old female with 1-day history of abdominal pain. On the CT scan seems to be having early acute appendicitis. Her white cell count was 12.3. She was advised surgery. The details of the procedure, risks and benefits were discussed. Consent was obtained. She was given Zosyn 3.375 grams IV preoperatively. She was brought to the operating room and laid supine on the table. Compression boots placed on her lower extremities for deep vein thrombosis (DVT) prophylaxis. General endotracheal anesthesia started without any complications. Her abdomen prepped and draped in the usual sterile fashion. We began the procedure by making a short transverse incision about 4 cm above her umbilicus. This was deepened to the anterior fascia. A Veress needle inserted in a controlled fashion. Intra-abdominal placement confirmed using saline drop technique. CO2 insufflation started to a pressure of 15 mmHg. Using the same incision, the 12 mm Visiport was placed under direct vision of the laparoscope. We intermittently used the 10 mm as well as the 5 mm 30 degrees laparoscope. She was placed on a Trendelenburg position right side tilted up roughly about 40 degrees to further retract structures away from the right lower quadrant area. A 5 mm suprapubic port and left lower quadrant port were placed under direct vision. On diagnostic laparoscopy, not much sign of inflammation immediately noted. No free fluid. Most of the bowels were covered with omentum. There were some omental adhesions at the midline right below the umbilicus. These were lysed with harmonic scalpel. During the lysis, when I was using the laparoscopic shanell, the shanell broke off in two. The broken off piece was retrieved through an EndoCatch bag. No injury noted. The appendix was noted to be retrocecal in position deep into the posterior lateral side of the cecum going up towards the tip of the liver. Once this was located, using the harmonic scalpel this was carefully dissected free off the lateral side of the cecum. The mesoappendix was divided using the harmonic scalpel. We followed the course of the appendix and we were able to detach this from the cecum as well as from the lateral attachments of the abdominal wall. The remnants of the mesoappendix likewise divided down to the base. Using 35 mm linear stapler with a blue load, the appendix was divided at its base. We irrigated the area and made sure we got adequate hemostasis. Once satisfied, I delivered the appendix to an EndoCatch bag and retrieved this. On reinsufflation, we reinspected our surgical site. Once we were sure we do not have any bleeding, the abdomen was deflated. All ports removed. The umbilical fascial defect repaired with #0 Vicryl in mattress fashion. All skin incisions closed with #4-0 Monocryl in subcuticular fashion. Steri-Strips and gauze dressings then placed. The patient was promptly awakened, extubated and brought to recovery room stable.
[2016-08-05 12:00] VITALS: BP 109/65
[2016-08-05] MEDS ORDERED: NORCOTAB PO (12:28)
--- NOTE | 2016-08-06 20:58 | EDDOCDS ---
Nurse's Notes [facility] Name: Arabella Cleveland Age: 46 yrs Sex: Female : 1970 Arrival Date: 08/04/2016 Time: 14:51 Bed I3 / M3 Private MD: Linh Murillo Diagnosis: Acute appendicitis Presentation: 08/04 14:55 Presenting complaint: Patient states: right lower abdominal pain radiating to right ck1 flank. Acute neurological deficits are not present. Mechanism of Injury: No Mechanism of Injury. Adult Sepsis Screening: The patient does not have new or worsening altered mentation. Patient's respiratory rate is less than 22. Systolic blood pressure is greater than 100. Patient has a qSOFA score of 0- Negative Sepsis Screen. Suicide/Homicide risk assessment- the patient denies having any suicidal and/or homicidal ideations and does not present with any other emotional, behavioral or mental health complaints. 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 Transition of care: patient was not received from another setting of care. 14:55 Acuity: STEVEN Level 3 ck1 14:55 Method Of Arrival: Walkin/Carried/Asstd ck1 Triage Assessment: 14:57 General: Appears in no apparent distress, comfortable, Behavior is appropriate for age, ck1 cooperative. Pain: Location: right lower quadrant Pain currently is 3 out of 10 on a pain scale. Pain radiates to right flank. HIV screening NA for this visit Offered previously. Respiratory: Respiratory effort is unlabored, Respiratory pattern is regular, symmetrical. GI: Reports diarrhea, nausea, vomiting. : Reports burning with urination. Derm: Skin is intact, is healthy with good turgor, Skin is pink, warm & dry. Musculoskeletal: Circulation, motion, and sensation intact Range of motion intact in all extremities. 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 brieo daily 2. estradiol 0.5 mg Oral tab once daily 3. Proventil Inhl 2.5 mg three times a day 4. Prozac 40 mg Oral cap 1 cap once daily 5. Singulair 10 mg Oral tab 1 tab once daily 6. Synthroid 75 mcg oral tab once daily - PMHx: Asthma; Depression; COPD; Hypertension; Hypothyroidism; - PSHx: Tonsillectomy; ; Cholecystectomy; Hysterectomy; Adenoidectomy; Laparoscopy; - Social history: Smoking status: Patient states was never smoker of tobacco. No barriers to communication noted, The patient speaks fluent Colombian, Speaks appropriately for age. - Family history: Not pertinent. - : The pt / caregiver states he / she is not on anticoagulants. Home medication list is obtained from [employer] import data. - Exposure Risk Screening:: None identified. Screenin:55 Screening information is obtained from the patient. Fall risk: No risks identified. erin Assistance ADL's: requires no assistance with activities of daily living. Abuse/DV Screen: The patient / caregiver reports he/she is: not in a situation that causes fear, pain or injury. Nutritional screening: No deficits noted. home support is adequate. 19:46 Advance Directives: Currently, there is no health care proxy. There is no active DNR lf1 order. There is no living will. There is no Power of Safety Assistant. Assessment: 15:55 General: Appears in no apparent distress, skin warm and dry color satisfactory. Moist [facility] pink oral mucosa. Obese abdomen that is non distended with bowel sounds present x 4. Reports right flank,k discomfort and is presently unable to produce urine.. GI: Abdomen is non- distended obese, Bowel sounds present X 4 quads. Abd is soft Abd is non tender. 16:52 General: Appears CT completed and tolerated well. states pain has decreased to 1/10.. [facility] 18:00 General: Appears states 4/10 discomfort and declining pain meds when offered. [facility] 18:55 General: Appears again reports that pian is increasing. declined meds when offered. lloyd medicated for nausea without emesis. [place] here. 19:46 General: Appears in no apparent distress, comfortable, Behavior is cooperative. Pain: lf1 Location: right flank and abdomen and right lower quadrant Pain currently is 3 out of 10 on a pain scale. Neurological: Level of Consciousness is awake, alert, obeys commands, Oriented to person, place, time, Speech is normal. EENT: No deficits noted. Cardiovascular: Chest pain is denied. Respiratory: Respiratory effort is even, unlabored. GI: Denies nausea, vomiting. Derm: Skin is normal. Musculoskeletal: No deficits noted. Injury Description: No known injury. Vital Signs: 14:53 BP 136 / 97; Pulse 108; Resp 20; Temp 98.4; Pulse Ox 98% ; Weight 108.86 kg; Height 5 elp ft. 1 in. (154.94 cm); Pain 3/10; 17:27 BP 118 / 64; Pulse 70; Resp 18; Temp 97(O); Pulse Ox 97% ; srm 19:46 BP 116 / 59; Pulse 80; Resp 16; Temp 97.5(O); Pulse Ox 95% on R/A; Pain 3/10; lf1 14:53 Body Mass Index 45.35 (108.86 kg, 154.94 cm) elp Vitals: 14:53 Log In Time: August 04, 2016 at 14:51. [facility] ED Course: 14:52 Patient visited by Leonela Garner PCA. elp 14:52 Patient moved to Waiting elp 14:53 Linh Murillo is Private Physician. elp 14:53 Patient visited by Leonela Garner PCA. elp 14:53 Patient moved to Pre RCE elp 14:56 Triage Initiated ck1 15:16 Patient moved to Triage 2 rs6 15:35 Patient visited by Kassie Hoffman RN. ck1 15:36 [facility] cc10 15:36 Paolo Sethi MD is Attending Physician. cc10 15:36 Patient visited by Neil Jarrett PA-C. cc10 15:36 Patient visited by Neil Jarrett PA-C. cc10 15:38 Patient moved to I3 / M3 [facility] 15:55 The patient / caregiver is instructed regarding the plan of care and ED course. jmk 15:58 Patient visited by Sami Jameson RN. jmk 16:01 Patient name changed from Arabella\S\Elissa\S\Cleveland\S\ to Arabella\S\ \S\Cleveland. EDMS 16:03 [facility] [place] was scanned into [employer] and attached to record. zo 16:04 PHCP role handed off by Neil Jarrett PA-C mo1 16:04 Paul Stanley PA is PHCP. mo1 16:58 Patient visited by Sami Jameson RN. jmk 16:58 Urine Culture Sent. jmk 16:58 Urinalysis Sent. jmk 17:28 Patient visited by Lluvia Frankel, ELIAS. srm 17:46 Ian Silva MD is Hospitalizing Provider. mo1 17:46 CT ABD & PELVIS: IV Contrast Only Returned. EDMS 18:01 Patient visited by Sami Jameson,RN. jmk 18:25 Patient visited by Sami Jameson,RN. jmk 18:56 Patient visited by Sami Jameson,ELIAS. jmk 18:[address] mtz. srm 19:46 IV is intact, #20 Left AC. No procedures done that require assistance. lf1 08/05 11:34 T-Sheet-- Draft Copy was scanned into [employer] and attached to record. gb 11:34 Radiology Report was scanned into [employer] and attached to record. gb Administered Medications: 08/04 15:54 Drug: NS 0.9% 1000 ml Route: IV; Rate: bolus; Site: left antecubital; [facility] 18:25 Follow up: IV Status: Completed infusion; IV Intake: 1000ml [facility] 15:55 Drug: Ondansetron 4 mg Route: IVP; Site: left antecubital; [facility] 15:55 Drug: ketorolac 30 mg [ketorolac 30 mg/mL (1 mL) injection solution (1 mL)] Route: IVP; [facility] Site: left antecubital; 18:00 Drug: Piperacillin-Tazobactam 3.375 grams [piperacillin-tazobactam 3.375 gram [facility] intravenous solution] Route: IVPB; Infused Over: 30 mins; Site: left antecubital; 18:56 Drug: Ondansetron 4 mg Route: IVP; Site: left antecubital; [facility] 19:25 Drug: morphine 4 mg [morphine 4 mg/mL intravenous cartridge (1 mL)] Route: IVP; Site: jo3 left antecubital; 19:30 Drug: Metoclopramide 10 mg [metoclopramide 5 mg/mL injection solution] Route: IV; Rate: jo3 40 mg/hr; Infused Over: 15 mins; Site: left antecubital; Intake: 18:25 IV: 1000.00ml; Total: 1000.00ml. [facility] Order Results: Lab Order: Urinalysis; SPEC'M 08/04/16 16:51 Test: APPEARANCE, URINE; Value: HAZY; Range: CLEAR; Status: F Test: COLOR, URINE; Value: DENISE; Range: YELLOW; Status: F Test: PH,URINE; Value: 5.0; Range: 5.0-9.0; Units: UNITS; Status: F Test: SPECIFIC GRAVITY URINE AUTO; Value: 1.028; Range: 1.002-1.035; Status: F Test: PROTEIN, URINE AUTO; Value: 1+; Range: NEGATIVE; Abnormal: Above high normal; Units: mg/dL; Status: F Test: GLUCOSE, URINE (UA) AUTO; Value: NEGATIVE; Range: NEGATIVE; Units: mg/dL; Status: F Test: KETONE, URINE AUTO; Value: TRACE; Range: NEGATIVE; Abnormal: Above high normal; Units: mg/dL; Status: F Test: UROBILINOGEN, URINE AUTO; Value: 0.2; Range: 0.0-2.0; Units: mg/dL; Status: F Test: BILIRUBIN, URINE AUTO; Value: NEGATIVE; Range: NEGATIVE; Status: F Test: NITRITE, URINE AUTO; Value: NEGATIVE; Range: NEGATIVE; Status: F Test: LEUKOCYTE ESTERASE, URINE AUTO; Value: NEGATIVE; Range: NEGATIVE; Status: F Test: BLOOD, URINE BLOOD; Value: NEGATIVE; Range: NEGATIVE; Status: F Test: WBC, URINE AUTO; Value: 2; Range: 0-3; Units: /HPF; Status: F Test: RBC, URINE AUTO; Value: 0; Range: 0-3; Units: /HPF; Status: F Test: BACTERIA, URINE AUTO; Value: 1+; Range: NEGATIVE; Abnormal: Above high normal; Status: F Test: SQUAMOUS EPITHELIAL CELL UR AU; Value: 3; Range: 0-6; Units: /HPF; Status: F Test: MUCUS, URINE; Value: LARGE; Range: NEGATIVE; Status: F Test: HYALINE CAST, URINE AUTO; Value: 0; Range: 0-1; Units: /LPF; Status: F Lab Order: Urine Culture; SPEC'M 08/04/16 16:51 Test: URINE CULTURE; Value: URINE CULTURE RESULT NO GROWTH; Status: F Lab Order: Basic Metabolic Profile; SPEC'M 08/04/16 15:46 Test: GLUCOSE, FASTING; Value: 95; Range: 70-105; Units: MG/DL; Status: F Test: BLOOD UREA NITROGEN; Value: 11; Range: 7-18; Units: MG/DL; Status: F Test: CREATININE FOR GFR; Value: 0.77; Range: 0.55-1.02; Units: MG/DL; Status: F Test: GLOMERULAR FILTRATION RATE; Value: > 60.0; Range: >58; Status: F Test: SODIUM LEVEL; Value: 140; Range: 136-145; Units: MEQ/L; Status: F Test: POTASSIUM SERUM; Value: 3.6; Range: 3.5-5.1; Units: MEQ/L; Status: F Test: CHLORIDE LEVEL; Value: 105; Range: 98-107; Units: MEQ/L; Status: F Test: CARBON DIOXIDE LEVEL; Value: 24; Range: 21-32; Units: MEQ/L; Status: F Test: ANION GAP; Value: 11; Range: 8-16; Units: MEQ/L; Status: F Test: CALCIUM LEVEL; Value: 8.7; Range: 8.5-10.1; Units: MG/DL; Status: F Test Note: ; Units are mL/min/1.73 m2 Chronic Kidney Disease Staging per NKF: Stage I & II GFR >=60 Normal to Mildly Decreased Stage III GFR 30-59 Moderately Decreased Stage IV GFR 15-29 Severely Decreased Stage V GFR <15 Very Little GFR Left ESRD GFR <15 on [employer] Lab Order: CBC with Diff; SPEC'M 08/04/16 15:46 Test: WHITE BLOOD COUNT; Value: 12.3; Range: 4.0-10.0; Abnormal: Above high normal; Units: K/mm3; Status: F Test: RED BLOOD COUNT; Value: 5.37; Range: 4.00-5.40; Units: M/mm3; Status: F Test: HEMOGLOBIN; Value: 14.4; Range: 12.0-16.0; Units: g/dl; Status: F Test: HEMATOCRIT; Value: 45.0; Range: 36.0-47.0; Units: %; Status: F Test: MEAN CORPUSCULAR VOLUME; Value: 83.8; Range: 80.0-96.0; Units: fl; Status: F Test: MEAN CORPUSCULAR HEMOGLOBIN; Value: 26.9; Range: 27.0-33.0; Abnormal: Below low normal; Units: pg; Status: F Test: MEAN CORPUSCULAR HGB CONC; Value: 32.1; Range: 32.0-36.5; Units: g/dl; Status: F Test: RED CELL DISTRIBUTION WIDTH; Value: 15.0; Range: 11.5-14.5; Abnormal: Above high normal; Units: %; Status: F Test: PLATELET COUNT, AUTOMATED; Value: 282; Range: 150-450; Units: k/mm3; Status: F Test: NEUTROPHILS %; Value: 84.6; Range: 36.0-66.0; Abnormal: Above high normal; Units: %; Status: F Test: LYMPH %; Value: 10.5; Range: 24.0-44.0; Abnormal: Below low normal; Units: %; Status: F Test: MONO %; Value: 2.8; Range: 0.0-5.0; Units: %; Status: F Test: EOS %; Value: 0.7; Range: 0.0-3.0; Units: %; Status: F Test: BASO %; Value: 0.9; Range: 0.0-1.0; Units: %; Status: F Test: LARGE UNSTAINED CELL %; Value: 0.5; Range: 0.0-4.0; Units: %; Status: F Test: NEUTROPHILS #; Value: 10.4; Range: 1.8-7.7; Abnormal: Above high normal; Units: K/mm3; Status: F Test: LYMPH #; Value: 1.4; Range: 1.5-4.5; Abnormal: Below low normal; Units: K/mm3; Status: F Test: MONO #; Value: 0.4; Range: 0.0-0.8; Units: K/mm3; Status: F Test: EOS #; Value: 0.1; Range: 0.0-0.50; Units: K/mm3; Status: F Test: BASO #; Value: 0.1; Range: 0.0-0.2; Units: K/mm3; Status: F Test: LARGE UNSTAINED CELL #; Value: 0.1; Range: 0.0-0.4; Units: K/mm3; Status: F Lab Order: Lipase; [facility]' 08/04/16 15:46 Test: LIPASE; Value: 72; Range: 73-393; Abnormal: Below low normal; Units: U/L; Status: F Lab Order: Liver Profile; [facility]' 08/04/16 15:46 Test: AST/SGOT; Value: 13; Range: 15-37; Abnormal: Below low normal; Units: U/L; Status: F Test: ALT/SGPT; Value: 19; Range: 12-78; Units: U/L; Status: F Test: ALKALINE PHOSPHATASE; Value: 86; Range: 45-117; Units: U/L; Status: F Test: BILIRUBIN,TOTAL; Value: 0.8; Range: 0.2-1.0; Units: MG/DL; Status: F Test: BILIRUBIN,DIRECT; Value: 0.2; Range: 0.0-0.2; Units: MG/DL; Status: F Test: TOTAL PROTEIN; Value: 7.6; Range: 6.4-8.2; Units: GM/DL; Status: F Test: ALBUMIN; Value: 3.5; Range: 3.2-5.2; Units: GM/DL; Status: F Test: ALBUMIN/GLOBULIN RATIO; Value: 0.85; Range: 1.00-1.93; Abnormal: Below low normal; Status: F Lab Order: CBC WITH DIFFERENTIAL; [facility] 08/05/16 06:41 Test: WHITE BLOOD COUNT; Value: 7.0; Range: 4.0-10.0; Units: K/mm3; Status: F Test: RED BLOOD COUNT; Value: 4.53; Range: 4.00-5.40; Units: M/mm3; Status: F Test: HEMOGLOBIN; Value: 12.4; Range: 12.0-16.0; Abnormal: Delta; Units: g/dl; Status: F Test: HEMATOCRIT; Value: 37.6; Range: 36.0-47.0; Units: %; Status: F Test: MEAN CORPUSCULAR VOLUME; Value: 83.0; Range: 80.0-96.0; Units: fl; Status: F Test: MEAN CORPUSCULAR HEMOGLOBIN; Value: 27.4; Range: 27.0-33.0; Units: pg; Status: F Test: MEAN CORPUSCULAR HGB CONC; Value: 32.9; Range: 32.0-36.5; Units: g/dl; Status: F Test: RED CELL DISTRIBUTION WIDTH; Value: 13.7; Range: 11.5-14.5; Units: %; Status: F Test: PLATELET COUNT, AUTOMATED; Value: 243; Range: 150-450; Units: k/mm3; Status: F Test: NEUTROPHILS %; Value: 78.4; Range: 36.0-66.0; Abnormal: Above high normal; Units: %; Status: F Test: LYMPH %; Value: 16.8; Range: 24.0-44.0; Abnormal: Below low normal; Units: %; Status: F Test: MONO %; Value: 2.8; Range: 0.0-5.0; Units: %; Status: F Test: EOS %; Value: 0.4; Range: 0.0-3.0; Units: %; Status: F Test: BASO %; Value: 0.2; Range: 0.0-1.0; Units: %; Status: F Test: LARGE UNSTAINED CELL %; Value: 1.3; Range: 0.0-4.0; Units: %; Status: F Test: NEUTROPHILS #; Value: 5.5; Range: 1.8-7.7; Units: K/mm3; Status: F Test: LYMPH #; Value: 1.2; Range: 1.5-4.5; Abnormal: Below low normal; Units: K/mm3; Status: F Test: MONO #; Value: 0.2; Range: 0.0-0.8; Units: K/mm3; Status: F Test: EOS #; Value: 0.0; Range: 0.0-0.50; Units: K/mm3; Status: F Test: BASO #; Value: 0.0; Range: 0.0-0.2; Units: K/mm3; Status: F Test: LARGE UNSTAINED CELL #; Value: 0.1; Range: 0.0-0.4; Units: K/mm3; Status: F Lab Order: BASIC METABOLIC PROFILE; SPEC'M 08/05/16 06:41 Test: GLUCOSE, FASTING; Value: 117; Range: 70-105; Abnormal: Above high normal; Units: MG/DL; Status: F Test: BLOOD UREA NITROGEN; Value: 11; Range: 7-18; Units: MG/DL; Status: F Test: CREATININE FOR GFR; Value: 0.77; Range: 0.55-1.02; Units: MG/DL; Status: F Test: GLOMERULAR FILTRATION RATE; Value: > 60.0; Range: >58; Status: F Test: SODIUM LEVEL; Value: 137; Range: 136-145; Units: MEQ/L; Status: F Test: POTASSIUM SERUM; Value: 4.1; Range: 3.5-5.1; Units: MEQ/L; Status: F Test: CHLORIDE LEVEL; Value: 105; Range: 98-107; Units: MEQ/L; Status: F Test: CARBON DIOXIDE LEVEL; Value: 24; Range: 21-32; Units: MEQ/L; Status: F Test: ANION GAP; Value: 8; Range: 8-16; Units: MEQ/L; Status: F Test: CALCIUM LEVEL; Value: 8.0; Range: 8.5-10.1; Abnormal: Below low normal; Units: MG/DL; Status: F Test Note: ; Units are mL/min/1.73 m2 Chronic Kidney Disease Staging per NKF: Stage I & II GFR >=60 Normal to Mildly Decreased Stage III GFR 30-59 Moderately Decreased Stage IV GFR 15-29 Severely Decreased Stage V GFR <15 Very Little GFR Left ESRD GFR <15 on [employer] Radiology Order: CT ABD & PELVIS: IV Contrast Only Test: CT ABD & PELVIS: IV Contrast Only REASON FOR EXAMINATION: Appendicitis; CT abdomen pelvis with IV contrast but without bowel contrast for appendicitis:; ; Comparison is 09/13/2006.; ; The appendix is elongated. There is a 5 ml calcification in the mid appendix as; an interval change. The appendix is distended proximal to the calcification; measuring 13 mm transverse diameter. Distal to the calcification. The appendix; is nondistended. There is no evidence of appendiceal rupture. Findings are; compatible with mid appendiceal obstruction and ensuing appendicitis. No; inflammatory changes are identified at this time.; ; The visualized lung lantigua are clear.; ; The liver, pancreas and spleen are unremarkable. There is a cholecystectomy.; ; The adrenals, kidneys, abdominal aorta, bowel and mesentery are otherwise; unremarkable.; ; Pelvis:; ; There is no ascites. The the patient reportedly has a hysterectomy. Vaginal; cuff and adnexa are unremarkable. There is no adenopathy. The pelvic bowel; loops are unremarkable.; ; Impression:; ; Distension of the proximal appendix from a calculus at the mid appendix level; without appendiceal inflammation or perforation at this time. The distal; appendix is unremarkable. Findings are compatible with ensuing acute; appendicitis.; ; ; ; ; Signed by; Dennis Grossman MD 08/04/2016 05:27 P; Outcome: 17:46 Decision to Hospitalize by Provider. mo1 19:56 Patient left the ED. jo3 20:06 Discharge Assessment: Patient awake, alert and oriented x 3. No cognitive and/or lf1 functional deficits noted. Patient verbalized understanding of disposition instructions. Patient awake and alert. Oriented to person, place and time. Patient verbalized understanding of disposition instructions. patient administered narcotics - yes. Patient was admitted to the hospital or transferred to another facility. The following High Risk Discharge criteria are identified: None. Admitted to OR accompanied by nurse, accompanied by tech, family with patient, via stretcher, with chart. Condition: unchanged. CT Study completed. Property :Personal belongings accompany Pt. Signatures: Dispatcher [employer] EDSami Sarabia,RN Lluvia Melo, RN RN [facility] Renuka Vallejo, Reg Reg Kassie BunnRN RN ck1 Letty Paul RN RN jo3 Miriam Ventura Lisa, RN RN lf1 Rachel Brewer,RN RN anayeli Paul Stanley PA PA mo1 Leonela Garner, PURSE FRAMER PURSE FRAMER elp Neil Jarrett PAZenia PAMiguelC cc10 Macie Julian, PURSE FRAMER PURSE FRAMER rs6 Chart Complete MTDD
--- NOTE | 2016-08-06 20:58 | EDDOCDS ---
Physician Documentation [facility] Name: Arabella Cleveland Age: 46 yrs Sex: Female : 1970 Arrival Date: 08/04/2016 Time: 14:51 Bed I3 / M3 Private MD: Linh Murillo Disposition: 08/04/16 17:46 Hospitalization ordered by Ian Silva for Inpatient Admission. Preliminary diagnosis is Acute appendicitis. - Bed requested for Admit. - Status is Inpatient Admission. jo3 - Condition is Stable. - Problem is new. - Symptoms are unchanged. Historical: - Allergies: No known drug Allergies; - Home Meds: 1. brieo daily 2. estradiol 0.5 mg Oral tab once daily 3. Proventil Inhl 2.5 mg three times a day 4. Prozac 40 mg Oral cap 1 cap once daily 5. Singulair 10 mg Oral tab 1 tab once daily 6. Synthroid 75 mcg oral tab once daily - PMHx: Asthma; Depression; COPD; Hypertension; Hypothyroidism; - PSHx: Tonsillectomy; ; Cholecystectomy; Hysterectomy; Adenoidectomy; Laparoscopy; - Social history: Smoking status: Patient states was never smoker of tobacco. No barriers to communication noted, The patient speaks fluent [place], Speaks appropriately for age. - Family history: Not pertinent. - : The pt / caregiver states he / she is not on anticoagulants. Home medication list is obtained from [employer] import data. - Exposure Risk Screening:: None identified. 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 1 in. (154.94 cm); Pain 3/10; 17:27 BP 118 / 64; Pulse 70; Resp 18; Temp 97(O); Pulse Ox 97% ; srm 19:46 BP 116 / 59; Pulse 80; Resp 16; Temp 97.5(O); Pulse Ox 95% on R/A; Pain 3/10; lf1 14:53 Body Mass Index 45.35 (108.86 kg, 154.94 cm) elp MDM: 15:06 Urinalysis Ordered. EDMS 15:06 Urine Culture Ordered. EDMS 15:39 NS 0.9% 1000 ml IV at bolus once ordered. cc10 15:39 Ondansetron 4 mg IVP once ordered. cc10 15:39 ketorolac 30 mg IVP once ordered. cc10 15:39 IV Saline Lock ordered. cc10 15:39 Undress patient appropriately for examination ordered. cc10 15:40 Basic Metabolic Profile Ordered. EDMS 15:40 CBC with Diff Ordered. EDMS 15:40 Lipase Ordered. EDMS 15:40 Liver Profile Ordered. EDMS 15:40 CT ABD & PELVIS: IV Contrast Only Ordered. EDMS 15:40 NOTHING BY MOUTH+DIET ordered. EDMS 16:02 Financial registration complete. zo 16:03 [facility] Payment Agreement was scanned into [employer] and attached to record. zo 16:04 CBC with Diff Reviewed. mo1 16:24 Liver Profile Reviewed. mo1 16:24 Basic Metabolic Profile Reviewed. mo1 16:25 Lipase Reviewed. mo1 17:20 Urinalysis Reviewed. mo1 17:43 Piperacillin-Tazobactam 3.375 grams IVPB once over 30 mins; dilute in 50mL of NS or D5W mo1 ordered. 17:44 BED REQUEST+ADM ordered. EDMS 18:52 Ondansetron 4 mg IVP once ordered. mo1 19:12 Metoclopramide 10 mg IV at 40 mg/hr once over 15 mins ordered. mo1 19:12 morphine 4 mg IVP once ordered. mo1 21:02 PATHOLOGY REQUEST FOR SERVICE Ordered. EDMS 21:53 Admission / Observation Status ordered. EDMS 21:53 CLEAR LIQUIDS DIET ordered. EDMS 21:54 CBC WITH DIFFERENTIAL Ordered. EDMS 21:54 BASIC METABOLIC PROFILE Ordered. EDMS 08/05 11:34 T-Sheet-- Draft Copy was scanned into [employer] and attached to record. gb 11:34 Radiology Report was scanned into [employer] and attached to record. gb 13:12 REGULAR DIET ordered. EDMS Administered Medications: 08/04 15:54 Drug: NS 0.9% 1000 ml Route: IV; Rate: bolus; Site: left antecubital; jmk 18:25 Follow up: IV Status: Completed infusion; IV Intake: 1000ml k 15:55 Drug: Ondansetron 4 mg Route: IVP; Site: left antecubital; jmk 15:55 Drug: ketorolac 30 mg [ketorolac 30 mg/mL (1 mL) injection solution (1 mL)] Route: IVP; [facility] Site: left antecubital; 18:00 Drug: Piperacillin-Tazobactam 3.375 grams [piperacillin-tazobactam 3.375 gram [facility] intravenous solution] Route: IVPB; Infused Over: 30 mins; Site: left antecubital; 18:56 Drug: Ondansetron 4 mg Route: IVP; Site: left antecubital; [facility] 19:25 Drug: morphine 4 mg [morphine 4 mg/mL intravenous cartridge (1 mL)] Route: IVP; Site: jo3 left antecubital; 19:30 Drug: Metoclopramide 10 mg [metoclopramide 5 mg/mL injection solution] Route: IV; Rate: jo3 40 mg/hr; Infused Over: 15 mins; Site: left antecubital; Signatures: Dispatcher [employer] EDSami Sarabia,RN RN Renuka Macdonald, Reg Reg Kassie Hoffman,RN RN ck1 Letty PaulRN RN jo3 Miriam Ventura Michael, PA PA mo1 Neil Jarrett PA-C PA-C cc10 Apryl Woods PA-C PA-C dt4 The chart was reviewed and I authenticate all verbal orders and agree with the evaluation and treatment provided.Corrections: (The following items were deleted from the chart) 15:39 15:05 UCG by Nursing ordered. dt4 cc10 Attachments: 16:03 [facility] [place] zo 08/05 11:34 T-Sheet-- Draft Copy gb Chart Complete MTDD
--- NOTE | 2016-08-06 20:58 | EDDOCDS ---
Physician Documentation [facility] Name: Arabella Cleveland Age: 46 yrs Sex: Female : 1970 Arrival Date: 08/04/2016 Time: 14:51 Bed I3 / M3 Private MD: Linh Murillo Disposition: 08/04/16 17:46 Hospitalization ordered by Ian Silva for Inpatient Admission. Preliminary diagnosis is Acute appendicitis. - Bed requested for Admit. - Status is Inpatient Admission. jo3 - Condition is Stable. - Problem is new. - Symptoms are unchanged. Historical: - Allergies: No known drug Allergies; - Home Meds: 1. brieo daily 2. estradiol 0.5 mg Oral tab once daily 3. Proventil Inhl 2.5 mg three times a day 4. Prozac 40 mg Oral cap 1 cap once daily 5. Singulair 10 mg Oral tab 1 tab once daily 6. Synthroid 75 mcg oral tab once daily - PMHx: Asthma; Depression; COPD; Hypertension; Hypothyroidism; - PSHx: Tonsillectomy; ; Cholecystectomy; Hysterectomy; Adenoidectomy; Laparoscopy; - Social history: Smoking status: Patient states was never smoker of tobacco. No barriers to communication noted, The patient speaks fluent [place]ian, Speaks appropriately for age. - Family history: Not pertinent. - : The pt / caregiver states he / she is not on anticoagulants. Home medication list is obtained from [employer] import data. - Exposure Risk Screening:: None identified. 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 1 in. (154.94 cm); Pain 3/10; 17:27 BP 118 / 64; Pulse 70; Resp 18; Temp 97(O); Pulse Ox 97% ; srm 19:46 BP 116 / 59; Pulse 80; Resp 16; Temp 97.5(O); Pulse Ox 95% on R/A; Pain 3/10; lf1 14:53 Body Mass Index 45.35 (108.86 kg, 154.94 cm) elp MDM: 15:06 Urinalysis Ordered. EDMS 15:06 Urine Culture Ordered. EDMS 15:39 NS 0.9% 1000 ml IV at bolus once ordered. cc10 15:39 Ondansetron 4 mg IVP once ordered. cc10 15:39 ketorolac 30 mg IVP once ordered. cc10 15:39 IV Saline Lock ordered. cc10 15:39 Undress patient appropriately for examination ordered. cc10 15:40 Basic Metabolic Profile Ordered. EDMS 15:40 CBC with Diff Ordered. EDMS 15:40 Lipase Ordered. EDMS 15:40 Liver Profile Ordered. EDMS 15:40 CT ABD & PELVIS: IV Contrast Only Ordered. EDMS 15:40 NOTHING BY MOUTH+DIET ordered. EDMS 16:02 Financial registration complete. zo 16:03 [facility] Payment Agreement was scanned into [employer] and attached to record. zo 16:04 CBC with Diff Reviewed. mo1 16:24 Liver Profile Reviewed. mo1 16:24 Basic Metabolic Profile Reviewed. mo1 16:25 Lipase Reviewed. mo1 17:20 Urinalysis Reviewed. mo1 17:43 Piperacillin-Tazobactam 3.375 grams IVPB once over 30 mins; dilute in 50mL of NS or D5W mo1 ordered. 17:44 BED REQUEST+ADM ordered. EDMS 18:52 Ondansetron 4 mg IVP once ordered. mo1 19:12 Metoclopramide 10 mg IV at 40 mg/hr once over 15 mins ordered. mo1 19:12 morphine 4 mg IVP once ordered. mo1 21:02 PATHOLOGY REQUEST FOR SERVICE Ordered. EDMS 21:53 Admission / Observation Status ordered. EDMS 21:53 CLEAR LIQUIDS DIET ordered. EDMS 21:54 CBC WITH DIFFERENTIAL Ordered. EDMS 21:54 BASIC METABOLIC PROFILE Ordered. EDMS 08/05 11:34 T-Sheet-- Draft Copy was scanned into [employer] and attached to record. gb 11:34 Radiology Report was scanned into [employer] and attached to record. gb 13:12 REGULAR DIET ordered. EDMS Administered Medications: 08/04 15:54 Drug: NS 0.9% 1000 ml Route: IV; Rate: bolus; Site: left antecubital; jmk 18:25 Follow up: IV Status: Completed infusion; IV Intake: 1000ml k 15:55 Drug: Ondansetron 4 mg Route: IVP; Site: left antecubital; jmk 15:55 Drug: ketorolac 30 mg [ketorolac 30 mg/mL (1 mL) injection solution (1 mL)] Route: IVP; [facility] Site: left antecubital; 18:00 Drug: Piperacillin-Tazobactam 3.375 grams [piperacillin-tazobactam 3.375 gram [facility] intravenous solution] Route: IVPB; Infused Over: 30 mins; Site: left antecubital; 18:56 Drug: Ondansetron 4 mg Route: IVP; Site: left antecubital; [facility] 19:25 Drug: morphine 4 mg [morphine 4 mg/mL intravenous cartridge (1 mL)] Route: IVP; Site: jo3 left antecubital; 19:30 Drug: Metoclopramide 10 mg [metoclopramide 5 mg/mL injection solution] Route: IV; Rate: jo3 40 mg/hr; Infused Over: 15 mins; Site: left antecubital; Signatures: Dispatcher [employer] EDSami Sarabia,RN RN Renuka Macdonald, Reg Reg Kassie Hoffman,RN RN ck1 Letty PaulRN RN jo3 Miriam Ventura Michael, PA PA mo1 Neil Jarrett PA-C PA-C cc10 Apryl Woods PA-C PA-C dt4 The chart was reviewed and I authenticate all verbal orders and agree with the evaluation and treatment provided.Corrections: (The following items were deleted from the chart) 15:39 15:05 UCG by Nursing ordered. dt4 cc10 Attachments: 16:03 [facility] Payment Agreement zo 08/05 11:34 T-Sheet-- Draft Copy gb Chart Complete MTDD
== END 2016-08-05 13:25 | disposition home or self-care (01) ==
LOC: M ED 14:51 → M OROP 21:48 → M PED 21:48 → M OPCLIPED 21:48 → UNDOADMIN 21:48 → M OPCLIPED 08-05 13:25
PROVIDERS: ATTEND Surgery
DX: K35.89 Other acute appendicitis (principal); E66.9 Obesity, unspecified; K21.9 Gastro-esophageal reflux disease without esophagitis; E03.9 Hypothyroidism, unspecified; Z79.899 Other long term (current) drug therapy; F32.9 Major depressive disorder, single episode, unspecified; J44.9 Chronic obstructive pulmonary disease, unspecified; I10 Essential (primary) hypertension
CPT/HCPCS: 36415; 44970; 74177; 80048; 80076; 81001; 83690; 85025; 87086; 88304; 94640; 96361; 96374; 96375; 96376; 99285; J1100; J1170; J1885; J2250; J2405; J2543; J2710; J2765; J3010; Q9967

== ENCOUNTER → 2017-04-14 | Outpatient (CLI) | payer BC ==
[~2017-04-14] MED LIST: ACET1TAB17 PO; ALBU17IN INH; ALBU83IN INH; BREO1INH INH; CALC600T31 PO; CIPR-249 PO; CIPR0.3S AS; CORT1SOL3 AS; ESTR1TAB PO; FEXO180T58 PO; FLON1SPR; FLUO40CA PO; IBUP1TAB6 PO; IPRASOL4 INH; MAGN500T2 PO; NEO/1SUS OT; NORCOTAB PO; OMEP20CA3 PO; PRED20TA PO; PROT1TAB2 PO; SING10TA32 PO; SYNT175T2 PO; VITA100T PO
[2017-04-14 13:20] LABS: BASO # 0.1 10^3/uL (0.0-0.2); BASO % 1.3 % (0.0-1.0); EOS # 0.2 10^3/uL (0.0-0.50); EOS % 2.8 % (0.0-3.0); IMMATURE GRANULOCYTE % 0.4 % (0-0); LYMPH # 2.6 10^3/uL (1.5-4.5); LYMPH % 31.6 % (24.0-44.0); MEAN CORPUSCULAR HEMOGLOBIN 27.6 pg (27.0-33.0); MEAN CORPUSCULAR HGB CONC 32.3 g/dl (32.0-36.5); MEAN CORPUSCULAR VOLUME 85.4 fl (80.0-96.0); MONO # 0.5 10^3/uL (0.0-0.8); MONO % 5.4 % (0.0-5.0); NEUTROPHILS # 4.9 10^3/uL (1.8-7.7); NEUTROPHILS % 58.5 % (36.0-66.0); PLATELET COUNT, AUTOMATED 307 10^3/uL (150-450); RED CELL DISTRIBUTION WIDTH 14.2 % (11.5-14.5); WHITE BLOOD COUNT 8.4 10^3/uL (4.0-10.0)
[2017-04-14 13:24] LABS: VITAMIN B12 LEVEL 951 PG/ML (247-911)
[2017-04-14 14:23] LABS: ALBUMIN 3.4 GM/DL (3.2-5.2); ALBUMIN/GLOBULIN RATIO 0.92 (1.00-1.93); ALKALINE PHOSPHATASE 62 U/L (45-117); ALT/SGPT 19 U/L (12-78); ANION GAP 8 MEQ/L (8-16); AST/SGOT 12 U/L (15-37); BILIRUBIN,TOTAL 0.7 MG/DL (0.2-1.0); BLOOD UREA NITROGEN 13 MG/DL (7-18); CALCIUM LEVEL 9.1 MG/DL (8.5-10.1); CARBON DIOXIDE LEVEL 25 MEQ/L (21-32); CHLORIDE LEVEL 102 MEQ/L (98-107); CHOLESTEROL LEVEL 211 MG/DL (<200); CREATININE FOR GFR 0.84 MG/DL (0.55-1.02); FREE T4 1.13 NG/DL (0.76-1.46); GLOMERULAR FILTRATION RATE > 60.0 (>58); GLUCOSE, FASTING 83 MG/DL (70-105); POTASSIUM SERUM 4.4 MEQ/L (3.5-5.1); SODIUM LEVEL 135 MEQ/L (136-145); TOTAL PROTEIN 7.1 GM/DL (6.4-8.2); TRIGLYCERIDES LEVEL 189 MG/DL (<150)
== END ==
LOC: M WUC 09:11
PROVIDERS: ATTEND Nurse Practitioner Family
DX: K21.9 Gastro-esophageal reflux disease without esophagitis (principal); D64.9 Anemia, unspecified; E03.9 Hypothyroidism, unspecified

== ENCOUNTER → 2017-04-15 | Outpatient (CLI) | payer BC | LOC: M LAB 12:02 | PROVIDERS: ATTEND Specialist | DX: N89.8 Other specified noninflammatory disorders of vagina (principal) ==

== ENCOUNTER → 2017-04-15 | Outpatient (CLI) | payer BC ==
--- NOTE | 2017-04-15 14:20 | REP ---
BILATERAL MAMMOGRAM: No comparison studies. Family history of breast cancer in father paternal aunt and paternal grandmother. MLO and CC views of the breasts demonstrate moderately dense fibroglandular tissue. There does appear to be a round nodule in the lower outer left breast measuring approximately 1.4 cm in maximum diameter. No other nodule or mass is seen. There is no architectural distortion. No clustered microcalcifications are seen. IMPRESSION: ACR 0 incomplete. There is a nodule in the lower outer left breast measuring approximately 1.4 cm in maximum diameter. Recommend spot compression views and ultrasound to further evaluation. BI-RADS/ACR category 0 mammogram, incomplete. Additional imaging and/or prior images are needed before a final assessment can be assigned. This mammogram was interpreted with the aid of an FDA-approved computer-aided detection system. A. Negative x-ray reports should not delay biopsy if a dominant or clinically suspicious mass is present. B. Four to eight percent of cancers are not identified by x-ray. C. Adenosis and dense breasts may obscure an underlying neoplasm. The patient states she/he had a clinical breast exam in March 2017. The patient letter being requested is M0. Signed by Dennis Crum MD 04/15/2017 05:19 P
== END ==
LOC: M RAD 11:28
PROVIDERS: ATTEND Nurse Practitioner Family
DX: Z12.31 Encounter for screening mammogram for malignant neoplasm of breast (principal)

== ENCOUNTER → 2017-04-22 | Outpatient (CLI) | payer BC ==
--- NOTE | 2017-04-22 13:23 | REP ---
Digital diagnostic unilateral left breast mammography with CAD and focused left breast sonography: History: Screening mammography April 15, 2017 is BIRADS category 0 because of a nodule in the lateral aspect of the left breast for which diagnostic imaging was recommended. Findings: Today's magnified focal spot compression CC, true MLO, and MLO views of the left confirm the presence of a well-circumscribed 12 mm nodule in the inferolateral quadrant of the left breast. Moderately dense fibroglandular elements are seen. No other significant mammographic finding. Sonographic findings: The left breast is scanned from 3 o'clock to 6 o'clock in the inferolateral quadrant. A cyst is seen at 4 o'clock measuring 1.2 x 1.2 x 0.7 cm. This is located 3.4 cm from the nipple. Heterogeneous background fibroglandular echotexture is seen. No other significant finding. The cyst is anechoic, with a well defined back wall and enhanced through transmission. Impression: BIRADS category II benign left breast imaging. Simple cyst seen at 4 o'clock position left breast inferolateral quadrant. This accounts for the mammographic opacity. Screening bilateral mammography recommended 1 year. BI-RADS/ACR category 2 mammogram. Benign finding(s). Routine annual screening mammography (for women over age 40). This mammogram was interpreted with the aid of an FDA-approved computer-aided detection system. The patient states she had a clinical breast exam in March 2017. The patient letter being requested is M1. Signed by Hari Nguyen MD 04/22/2017 03:53 P
== END ==
LOC: M RAD 11:25
PROVIDERS: ATTEND Nurse Practitioner Family
DX: R92.8 Other abnormal and inconclusive findings on diagnostic imaging of breast (principal)
CPT/HCPCS: 76642; G0206

== ENCOUNTER 2017-05-21 05:46 | Emergency (ER) | payer BC ==
[~2017-05-21] VITALS: Ht 154.9 cm; Wt 105.0 kg
[~2017-05-21 05:46] MED LIST changes: -ACET1TAB17 PO; -CIPR-249 PO; -CIPR0.3S AS; -CORT1SOL3 AS; -FEXO180T58 PO; -FLON1SPR; -IBUP1TAB6 PO; -IPRASOL4 INH; -NEO/1SUS OT; -PRED20TA PO; -PROT1TAB2 PO; -VITA100T PO
[2017-05-21] MEDS ORDERED: VITA100T PO (06:09)
[2017-05-21] MEDS ORDERED: NEO/1SUS OT (06:09)
[2017-05-21] MEDS ORDERED: PROT1TAB2 PO (06:09)
[2017-05-21] MEDS ORDERED: TOBRADEX OPHTH SUSP 2.5 ML OS ONE (06:30)
[2017-05-21] MEDS ORDERED: TOBRAMYCIN SULF 100 MG in D5W 50 ML IV ONE (06:30)
[2017-05-21] MEDS ORDERED: PIPERACILLIN/TAZOBACTAM SOD 3.375 GM in D5W 50 ML IV ONE (06:30)
--- NOTE | 2017-05-21 07:30 | REPUSA ---
HISTORY: Mastoiditis. COMPARISON: TECHNIQUE: Multiple thin section helically-acquired axially-displayed and helically acquired coronall y displayed computed tomographic images of the face are obtained from the mandible through the fronta l sinuses, with images obtained at soft tissue and bone window. 2D reformatted images were performed. FINDINGS: Left mastoid effusion. Normal bony mineralization. No fractures. Normal orbits. Normal, clear paranasal sinuses. Normal oral and nasal cavities. Normal infratemporal fossa and deep parapharyngeal spaces with normal muscles of mastication. Normal parotid and submandibular glands. IMPRESSION: Left mastoiditis. No associated erosive changes or abscess formation. Thank you for your kind referral of this patient
[2017-05-21 07:39] LABS: BASO # 0.1 10^3/uL (0.0-0.2); BASO % 0.9 % (0.0-1.0); EOS # 0.6 10^3/uL (0.0-0.50); EOS % 6.7 % (0.0-3.0); IMMATURE GRANULOCYTE % 0.2 % (0-0); LYMPH # 2.4 10^3/uL (1.5-4.5); LYMPH % 28.2 % (24.0-44.0); MEAN CORPUSCULAR HGB CONC 32.5 g/dl (32.0-36.5); MEAN CORPUSCULAR VOLUME 83.1 fl (80.0-96.0); MONO # 0.6 10^3/uL (0.0-0.8); MONO % 6.9 % (0.0-5.0); NEUTROPHILS # 4.9 10^3/uL (1.8-7.7); NEUTROPHILS % 57.1 % (36.0-66.0); PLATELET COUNT, AUTOMATED 289 10^3/uL (150-450); RED CELL DISTRIBUTION WIDTH 14.1 % (11.5-14.5); WHITE BLOOD COUNT 8.7 10^3/uL (4.0-10.0)
[2017-05-21 07:58] LABS: ANION GAP 6 MEQ/L (8-16); BLOOD UREA NITROGEN 10 MG/DL (7-18); CALCIUM LEVEL 8.4 MG/DL (8.5-10.1); CARBON DIOXIDE LEVEL 28 MEQ/L (21-32); CHLORIDE LEVEL 105 MEQ/L (98-107); GLOMERULAR FILTRATION RATE > 60.0 (>58); GLUCOSE, FASTING 82 MG/DL (70-105); POTASSIUM SERUM 4.1 MEQ/L (3.5-5.1); SODIUM LEVEL 139 MEQ/L (136-145)
[2017-05-21] MEDS ORDERED: NS 1,000 ML IV ONE (08:45)
[2017-05-21] MEDS ORDERED: CORT1SOL3 AS (09:00)
[2017-05-21] MEDS ORDERED: IPRASOL4 INH (09:34)
[2017-05-21] MEDS ORDERED: FLON1SPR (09:34)
[2017-05-21] MEDS ORDERED: FEXO180T58 PO (09:34)
[2017-05-21] MEDS ORDERED: IBUP1TAB6 PO (09:34)
[2017-05-21] MEDS ORDERED: ACET1TAB17 PO (09:34)
[2017-05-21] MEDS ORDERED: ACETAMINOPHEN 325 MG TAB PO ONE (10:15)
[2017-05-21] MEDS ORDERED: predniSONE 20 MG TAB PO ONE (10:30)
[2017-05-21] MEDS ORDERED: CIPR0.3S AS (10:51)
[2017-05-21] MEDS ORDERED: CIPR-249 PO (10:52)
[2017-05-21] MEDS ORDERED: PRED20TA PO (10:54)
[2017-05-21 11:20] VITALS: BP 117/63
--- NOTE | 2017-05-23 06:17 | CR ---
DATE OF CONSULTATION: 05/21/2017 LOCATION: Emergency room. DIAGNOSES: 1. Left mastoiditis. 2. Left external otitis. HISTORY: This is a 47-year-old non-diabetic female who has had a history of "ear fluid" in the past associated with some decrease in hearing. Recently she has developed increasing pain in her left ear with blocked hearing, was treated with antibiotic ear drops and oral Cipro. She presents now after 10 days with increased swelling and pain, decreased hearing. CT scan obtained in the emergency room (ER) demonstrated what I felt was mastoiditis. Currently, she denies any significant increase in pain. There is no headache, stiff neck, fever, chills or vertigo. OBJECTIVE: On examination, she is awake, alert, and oriented, in no acute distress. The left ear canal is tender. There is some thin mucopurulent secretion seen. On the right ear canal, the tympanic membrane is intact without fluid. The left ear canal has a wick in at this time. There is no granulation tissue seen. There is minimal edema. She is slightly tender of the auricle and slightly tender around the soft tissues around the posterior auricle. Facial nerve function is intact. DIAGNOSTIC STUDIES: I reviewed the CT scan. She has mostly external canal edema, as well as occlusion of the canal. There does appear to be some fluid in the mastoid, which is not explained by the external findings. The middle ear is actually clear on the CT scan. The aditus on the CT scan is also free of any fluid. This perhaps could be sort of a sympathetic inflammation of the mastoid. ASSESSMENT: At this point, I do not think she has acute bacterial mastoiditis, but she will be admitted to the hospital for intravenous (IV) antibiotics and steroids, and ear drops. She will need to undergo an ear exam under a microscope at some point in the next 24-48 hours when available.
== END 2017-05-21 11:26 | disposition home or self-care (01) ==
LOC: M ED 05:46
DX: H60.92 Unspecified otitis externa, left ear (principal); K21.9 Gastro-esophageal reflux disease without esophagitis; F32.9 Major depressive disorder, single episode, unspecified; J30.2 Other seasonal allergic rhinitis; H70.92 Unspecified mastoiditis, left ear; Z79.899 Other long term (current) drug therapy
CPT/HCPCS: 70486; 80048; 83605; 85025; 87040; 96365; 96366; 99284; J2543

== ENCOUNTER 2017-07-15 20:11 | Emergency (ER) | payer BC ==
[2017-07-15] MEDS: predniSONE 20 MG TAB PO (21:30)
[2017-07-15] MEDS: IPRATROPIUM 0.5MG/ALBUTEROL 2.5MG INH SOL UD 3ML (DUONEB)(J7620) NEB (22:02)
[2017-07-15] MEDS: DOXYCYCLINE HYCLATE 100 MG TAB PO (23:00)
== END 2017-07-15 23:23 | disposition home or self-care (01) ==
LOC: M ED 20:11
DX: J44.1 Chronic obstructive pulmonary disease with (acute) exacerbation (principal); J44.0 Chronic obstructive pulmonary disease with (acute) lower respiratory infection; M79.1 Myalgia; E78.5 Hyperlipidemia, unspecified; F32.9 Major depressive disorder, single episode, unspecified; K21.9 Gastro-esophageal reflux disease without esophagitis; Z79.899 Other long term (current) drug therapy; Z79.51 Long term (current) use of inhaled steroids
CPT/HCPCS: 71020

== ENCOUNTER 2017-09-18 10:28 | Emergency (ER) | payer BC | END 2017-09-18 11:53 | disposition home or self-care (01) | LOC: M ED 10:28 | DX: L08.9 Local infection of the skin and subcutaneous tissue, unspecified (principal); J45.909 Unspecified asthma, uncomplicated; J44.9 Chronic obstructive pulmonary disease, unspecified; Z87.01 Personal history of pneumonia (recurrent); K21.9 Gastro-esophageal reflux disease without esophagitis; E03.9 Hypothyroidism, unspecified; Z79.899 Other long term (current) drug therapy | CPT/HCPCS: 99283 ==

== ENCOUNTER 2017-09-29 20:44 | Emergency (ER) | payer BC ==
[2017-09-29] MEDS: DOXYCYCLINE HYCLATE 100 MG TAB PO (23:15)
== END 2017-09-29 23:30 | disposition home or self-care (01) ==
LOC: M ED 23:30
DX: L03.311 Cellulitis of abdominal wall (principal); J45.909 Unspecified asthma, uncomplicated; K21.9 Gastro-esophageal reflux disease without esophagitis; F41.9 Anxiety disorder, unspecified; Z79.51 Long term (current) use of inhaled steroids; Z79.890 Hormone replacement therapy; Z79.899 Other long term (current) drug therapy
CPT/HCPCS: 87186

== ENCOUNTER 2018-01-02 05:06 | Emergency (ER) | payer BC ==
[2018-01-02] MEDS: methylPREDNISolone INJ 125 MG/2 ML VIAL (J2930) IM (06:36)
[2018-01-02] MEDS: IPRATROPIUM 0.5MG/ALBUTEROL 2.5MG INH SOL UD 3ML (DUONEB)(J7620) NEB ×2 (06:57→07:06)
== END 2018-01-02 07:54 | disposition home or self-care (01) ==
LOC: M ED 05:06
DX: R06.2 Wheezing (principal); J45.901 Unspecified asthma with (acute) exacerbation; L02.212 Cutaneous abscess of back [any part, except buttock and flank]; J44.9 Chronic obstructive pulmonary disease, unspecified; K21.9 Gastro-esophageal reflux disease without esophagitis; E03.9 Hypothyroidism, unspecified; F32.9 Major depressive disorder, single episode, unspecified; Z87.01 Personal history of pneumonia (recurrent); Z79.899 Other long term (current) drug therapy
CPT/HCPCS: J2930

== ENCOUNTER → 2018-01-04 | Outpatient (REF) | payer BC ==
[2018-01-04 14:07] LABS: HEMATOCRIT 38.2 % (36.0-47.0); HEMOGLOBIN 12.2 g/dl (12.0-15.5); MEAN CORPUSCULAR HEMOGLOBIN 26.6 pg (27.0-33.0); MEAN CORPUSCULAR HGB CONC 31.9 g/dl (32.0-36.5); MEAN CORPUSCULAR VOLUME 83.2 fl (80.0-96.0); PLATELET COUNT, AUTOMATED 383 10^3/uL (150-450); RED BLOOD COUNT 4.59 10^6/uL (4.00-5.40); RED CELL DISTRIBUTION WIDTH 15.6 % (11.5-14.5)
[2018-01-04 14:13] LABS: POSITIVE DIFF POS FLAG
[2018-01-04 14:25] LABS: ADD MANUAL DIFFER YES; DIFF SLIDE NUMBER 190
[2018-01-04 14:33] LABS: ALBUMIN 3.4 GM/DL (3.2-5.2); ALBUMIN/GLOBULIN RATIO 0.92 (1.00-1.93); ALKALINE PHOSPHATASE 71 U/L (45-117); ALT/SGPT 23 U/L (12-78); ANION GAP 11 MEQ/L (8-16); AST/SGOT 8 U/L (7-37); BILIRUBIN,TOTAL 0.4 MG/DL (0.2-1.0); BLOOD UREA NITROGEN 21 MG/DL (7-18); C REACTIVE PROTEIN QUANTITATIV 0.48 MG/DL (0.00-0.30); CALCIUM LEVEL 8.7 MG/DL (8.5-10.1); CARBON DIOXIDE LEVEL 28 MEQ/L (21-32); CHLORIDE LEVEL 102 MEQ/L (98-107); CHOLESTEROL LEVEL 226 MG/DL (<200); CHOLESTEROL RISK RATIO 5.255 (<5); CREATININE FOR GFR 1.14 MG/DL (0.55-1.30); FREE T4 1.08 NG/DL (0.76-1.46); GLOMERULAR FILTRATION RATE 54.9 (>58); GLUCOSE, FASTING 75 MG/DL (70-100); HDL CHOLESTEROL 43 MG/DL (>40); LDL CHOLESTEROL 157.2 MG/DL (<100); MAGNESIUM LEVEL 2.2 MG/DL (1.8-2.4); NON-HDL-C 183 MG/DL; POTASSIUM SERUM 4.4 MEQ/L (3.5-5.1); SODIUM LEVEL 141 MEQ/L (136-145); THYROID STIMULATING HORMONE 0.369 uIU/ML (0.358-3.740); TOTAL PROTEIN 7.1 GM/DL (6.4-8.2); TRIGLYCERIDES LEVEL 129 MG/DL (<150)
[2018-01-04 14:37] LABS: ESTIMATED AVERAGE GLUCOSE 117 MG/DL (60-110); HEMOGLOBIN A1c 5.7 %
[2018-01-04 15:02] LABS: ATYPICAL LYMPH 3 % (0-5); LYMPHOCYTES 34 % (16-52); MONOCYTES 4 % (0-8); NEUTROPHILS 59 % (35-75); PLATELET ESTIMATE NORMAL (NORMAL)
== END ==
LOC: M SFHCPLAZ 10:30
DX: E03.9 Hypothyroidism, unspecified (principal); K21.0 Gastro-esophageal reflux disease with esophagitis; I10 Essential (primary) hypertension; E66.9 Obesity, unspecified
CPT/HCPCS: 83735

== ENCOUNTER 2018-01-31 23:55 | Emergency (ER) | payer BC ==
[2018-02-01] MEDS: KETOROLAC 60 MG/2 ML VIAL (J1885) IM (03:39)
== END 2018-02-01 03:55 | disposition home or self-care (01) ==
LOC: M ED 23:55
DX: S83.92XA Sprain of unspecified site of left knee, initial encounter (principal); X50.1XXA Overexertion from prolonged static or awkward postures, initial encounter; Y92.099 Unspecified place in other non-institutional residence as the place of occurrence of the external cause; Y93.02 Activity, running; Y99.9 Unspecified external cause status; J45.909 Unspecified asthma, uncomplicated; E78.5 Hyperlipidemia, unspecified; F32.9 Major depressive disorder, single episode, unspecified; K21.9 Gastro-esophageal reflux disease without esophagitis; E66.9 Obesity, unspecified; M17.12 Unilateral primary osteoarthritis, left knee; M25.762 Osteophyte, left knee; Z79.899 Other long term (current) drug therapy
CPT/HCPCS: J1885

== ENCOUNTER → 2018-02-09 | Outpatient (REF) | payer BC | LOC: M SFHCPLAZ 13:32 | DX: L02.91 Cutaneous abscess, unspecified (principal) | CPT/HCPCS: 87205 ==

== ENCOUNTER → 2018-03-27 | Outpatient (CLI) | payer BC | LOC: M SLEEP HO 08:24 | DX: G47.33 Obstructive sleep apnea (adult) (pediatric) (principal) | CPT/HCPCS: G0399 ==

== ENCOUNTER → 2018-05-16 | Outpatient (CLI) | payer BC ==
[2018-05-16 12:22] LABS: BASO # 0.1 10^3/uL (0.0-0.2); BASO % 0.9 % (0.0-1.0); EOS # 0.2 10^3/uL (0.0-0.50); EOS % 2.3 % (0.0-3.0); HEMATOCRIT 39.4 % (36.0-47.0); HEMOGLOBIN 12.2 g/dl (12.0-15.5); IMMATURE GRANULOCYTE % 0.2 % (0-3.0); LYMPH # 2.6 10^3/uL (1.5-4.5); LYMPH % 32.1 % (24.0-44.0); MEAN CORPUSCULAR HEMOGLOBIN 26.3 pg (27.0-33.0); MEAN CORPUSCULAR VOLUME 85.1 fl (80.0-96.0); MONO # 0.4 10^3/uL (0.0-0.8); MONO % 5.3 % (0.0-5.0); NEUTROPHILS # 4.9 10^3/uL (1.8-7.7); NEUTROPHILS % 59.2 % (36.0-66.0); PLATELET COUNT, AUTOMATED 302 10^3/uL (150-450); RED BLOOD COUNT 4.63 10^6/uL (4.00-5.40); RED CELL DISTRIBUTION WIDTH 14.4 % (11.5-14.5); WHITE BLOOD COUNT 8.2 10^3/uL (4.0-10.0)
[2018-05-16 12:50] LABS: CHOLESTEROL LEVEL 181 MG/DL (<200); FREE T4 1.17 NG/DL (0.76-1.46); HDL CHOLESTEROL 48 MG/DL (>40); LDL CHOLESTEROL 110 MG/DL (<100); NON-HDL-C 133 MG/DL; THYROID STIMULATING HORMONE 0.062 uIU/ML (0.358-3.740); TRIGLYCERIDES LEVEL 113 MG/DL (<150)
[2018-05-16 13:50] LABS: ESTIMATED AVERAGE GLUCOSE 108 MG/DL (60-110); HEMOGLOBIN A1c 5.4 %
== END ==
LOC: M RAD 11:37
DX: N60.02 Solitary cyst of left breast (principal); J01.10 Acute frontal sinusitis, unspecified; E03.9 Hypothyroidism, unspecified; Z68.41 Body mass index [BMI] 40.0-44.9, adult; Z12.31 Encounter for screening mammogram for malignant neoplasm of breast
CPT/HCPCS: 77066

== ENCOUNTER 2018-06-25 02:27 | Emergency (ER) | payer BC ==
[2018-06-25] MEDS: IPRATROPIUM 0.5MG/ALBUTEROL 2.5MG INH SOL UD 3ML (DUONEB)(J7620) NEB ×3 (02:53→03:23)
[2018-06-25] MEDS: dexameTHASONE 20 MG/5 ML VIAL (J1100) IV (03:10)
[2018-06-25] MEDS: ACETAMINOPHEN/CODEINE 300MG/30MG 12.5 ML UDC PO (04:52)
== END 2018-06-25 05:13 | disposition home or self-care (01) ==
LOC: M ED 02:27
DX: J40 Bronchitis, not specified as acute or chronic (principal); I10 Essential (primary) hypertension; J44.9 Chronic obstructive pulmonary disease, unspecified; K21.9 Gastro-esophageal reflux disease without esophagitis; F33.9 Major depressive disorder, recurrent, unspecified; Z79.899 Other long term (current) drug therapy
CPT/HCPCS: J1100

== ENCOUNTER → 2018-06-27 | Outpatient (CLI) | payer BC | LOC: M SMT 10:47 | DX: J04.2 Acute laryngotracheitis (principal) | CPT/HCPCS: 71046 ==

== ENCOUNTER → 2018-06-27 | Outpatient (REF) | payer BC ==
[2018-06-27 11:53] LABS: HEMATOCRIT 37.7 % (36.0-47.0); HEMOGLOBIN 12.1 g/dl (12.0-15.5); MEAN CORPUSCULAR HEMOGLOBIN 26.8 pg (27.0-33.0); MEAN CORPUSCULAR HGB CONC 32.1 g/dl (32.0-36.5); MEAN CORPUSCULAR VOLUME 83.4 fl (80.0-96.0); PLATELET COUNT, AUTOMATED 356 10^3/uL (150-450); RED BLOOD COUNT 4.52 10^6/uL (4.00-5.40); RED CELL DISTRIBUTION WIDTH 15.1 % (11.5-14.5)
[2018-06-27 12:13] LABS: ALBUMIN 3.3 GM/DL (3.2-5.2); ALBUMIN/GLOBULIN RATIO 0.94 (1.00-1.93); ALKALINE PHOSPHATASE 58 U/L (45-117); ALT/SGPT 19 U/L (12-78); ANION GAP 7 MEQ/L (8-16); AST/SGOT 13 U/L (7-37); BILIRUBIN,TOTAL 0.3 MG/DL (0.2-1.0); BLOOD UREA NITROGEN 16 MG/DL (7-18); CALCIUM LEVEL 8.4 MG/DL (8.5-10.1); CARBON DIOXIDE LEVEL 27 MEQ/L (21-32); CHLORIDE LEVEL 104 MEQ/L (98-107); CREATININE FOR GFR 0.87 MG/DL (0.55-1.30); GLOMERULAR FILTRATION RATE > 60.0 (>58); GLUCOSE, FASTING 71 MG/DL (70-100); POTASSIUM SERUM 4.2 MEQ/L (3.5-5.1); SODIUM LEVEL 138 MEQ/L (136-145); TOTAL PROTEIN 6.8 GM/DL (6.4-8.2)
[2018-06-27 12:46] LABS: ADD MANUAL DIFFER YES; DIFF SLIDE NUMBER 212; POSITIVE DIFF POS FLAG; WHITE BLOOD COUNT 16.4 10^3/uL (4.0-10.0)
[2018-06-27 12:50] LABS: EOSINOPHILS 1 % (0-5); LYMPHOCYTES 31 % (16-52); MONOCYTES 2 % (0-8); NEUTROPHILS 66 % (35-75)
[2018-06-27 12:51] LABS: PLATELET ESTIMATE NORMAL (NORMAL)
== END ==
LOC: M SFHCPLAZ 09:44
DX: J04.2 Acute laryngotracheitis (principal)
CPT/HCPCS: 80053

== ENCOUNTER → 2018-06-27 | Outpatient (REF) | payer BC | LOC: M SFHCPLAZ 17:07 | DX: J04.2 Acute laryngotracheitis (principal) | CPT/HCPCS: 87186 ==

== ENCOUNTER → 2018-07-26 | Outpatient (CLI) | payer BC ==
[~2018-07-26] MED LIST changes: +ACET1TAB55 PO; +BACT800T5 PO; +CIPR-249 PO; +CIPR0.3S AS; +CLEO300C2 PO; +CORT1SOL3 AS; +DOXY100C37 PO; +FEXO180T58 PO; +FLON1SPR; +IBUP1TAB6 PO; +IPRA0.00 INH; +LISI-542; +NEO/1SUS OT; +PERC5TAB12 PO; +PRED20TA PO; +PROT1TAB2 PO; +VITA1TAB22 PO; +WELL100T2 PO
--- NOTE | 2018-07-26 14:35 | REP ---
Chest two views HISTORY: Pneumonia Comparison: 06/27/2018 The lungs are clear. The heart is normal in size. The pulmonary vasculature is normal in appearance. The bony structure is intact. IMPRESSION: No acute disease. Electronically Signed by Jonah Rasmussen MD 07/26/2018 02:27 P
== END ==
LOC: M WUC 13:54
PROVIDERS: ATTEND Physician Assistant Medical
DX: J15.0 Pneumonia due to Klebsiella pneumoniae (principal)

== ENCOUNTER → 2018-08-01 | Outpatient (CLI) | payer BC ==
--- NOTE | 2018-08-01 15:37 | REP ---
RIGHT KIDNEY, FIVE VIEWS: HISTORY: Arthralgia. There is no acute fracture or dislocation. There is mild narrowing of the medial knee joint space and minimal narrowing of the lateral knee joint space. Osteophytes are present on the femur, tibia, and patella. Calcification is present medial to the distal femur. This represents ligamentous or tendon calcification. IMPRESSION: Degenerative change as described above. Electronically Signed by Jonah Rasmussen MD 08/01/2018 04:04 P
== END ==
LOC: M WUC 14:01
PROVIDERS: ATTEND Physician Assistant Medical
DX: M17.12 Unilateral primary osteoarthritis, left knee (principal)

== ENCOUNTER → 2018-08-24 | Outpatient (CLI) | payer BC ==
--- NOTE | 2018-08-31 13:10 | SLEEPCENT ---
DATE OF PROCEDURE: 08/24/2008 ORDERING PROVIDER: Nanci Gallegos Nocturnal polysomnography was performed for the titration of pressure therapy in this patient with obstructive sleep apnea syndrome, apnea-hypopnea index 29.1. For testing, the patient was fit with a ResMed Quattro full face mask of small size, 4 cm of water pressure were applied to the circuit, and lights were extinguished. 7 hours and 21 minutes of data were reviewed. They were 285 minutes of sleep identified. Sleep latency was prolonged at 94 minutes. Rapid eye movement (REM) latency was prolonged at 119 minutes. Sleep architecture remained somewhat fragmented. Overall sleep efficiency was fair at 67%. The electrocardiogram showed a sinus rhythm with an average heart rate of 62 beats per minute. Electroencephalogram (EEG) showed normal waveforms for awake and sleep. Persistence of respiratory events prompted an increase in C-PAP. Late in the study the patient, the patient had persistence of respiratory events despite progression in C-PAP pressure. At the very terminal minutes of the study, respiratory events appeared to be well palliated with C-PAP at a pressure of +14. The patient did sleep through REM without significant respiratory event or oxygen desaturation in the supine posture. Some limb activity was also noted over the course of the study. Limb movement arousal index was only 5.5. IMPRESSION: 1. Obstructive sleep apnea syndrome (G47.33). RECOMMENDATIONS: Initiation of pressure therapy at 14 cm of water should be sufficient to address the patient's respiratory events. However, given the limited time at this pressure, close clinical followup will be necessary to confirm adequacy.
== END ==
LOC: M SLEEP 19:47
PROVIDERS: ATTEND Nurse Practitioner Family
DX: G47.33 Obstructive sleep apnea (adult) (pediatric) (principal)

== ENCOUNTER → 2018-09-11 | Outpatient (CLI) | payer BC ==
--- NOTE | 2018-09-12 09:41 | REP ---
MRI left knee without contrast: History: Arthralgia. Comparison left knee radiographs are from August 01, 2018. Technique: Axial, coronal and sagittal imaging planes utilized. T1 and T2-weighted scans were obtained with and without fat saturation. MRI findings: Cortical and medullary bone signal intensity are essentially normal. There is a small zone of marrow edema beneath the tibial spines. There is a moderate sized joint effusion. There are atypical periarticular cysts consistent with ganglion posterior to the medial aspect of the distal femur and posterior to the fibular head. In this latter collection, there is a low T1, low T2 signal intensity ovoid filling defect consistent with a small cartilaginous loose body 9 mm in diameter. This is apparently associated with the proximal tibiofibular articulation. There are two adjacent extra-articular osteocartilaginous loose bodies adjacent to the medial femoral condyle at the level of the joint line. One of these is mineralized enough to be visible radiographically. These measure 4 and 5 mm in greatest diameter respectively. They appear to be extra-articular. There are well established medial compartment osteoarthritic spurs. Mild lateral compartment spurring is seen. Osteoarthritis is seen in the patellofemoral compartment as well with considerable chondromalacia with diffuse narrowing of the patellar articular cartilage and mild to moderate chondromalacia of the femoral trochlear articular cartilage. There is severe chondromalacia in the medial tibiofemoral compartment as well with joint space narrowing. There is medial extrusion of the meniscus. Swelling and increased signal intensity is seen in the posterior body and posterior horn of the medial meniscus consistent with a degenerative tear. No lateral meniscal tear is appreciated. Patellar and quadriceps tendons are intact. Anterior and posterior cruciate ligaments appear intact. Lateral collateral ligament complex is unremarkable. There is medial bowing of the medial collateral ligament but no disruption. There is some extra-articular soft tissue edema anteriorly in the prepatellar soft tissues. Impression: Three compartment osteoarthritis with joint effusion. Periarticular cysts. Loose body in a fluid collection associated with the proximal tibiofibular articulation. There are two extra-articular osteocartilaginous nodules medially at the joint line. There is a degenerative tear in the posterior horn of the medial meniscus. Electronically Signed by Hari Nguyen MD 09/12/2018 07:27 P
== END ==
LOC: M RAD 18:03
PROVIDERS: ATTEND Physician Assistant Medical
DX: M25.862 Other specified joint disorders, left knee (principal); M17.12 Unilateral primary osteoarthritis, left knee; S83.242A Other tear of medial meniscus, current injury, left knee, initial encounter; Y93.9 Activity, unspecified; Y92.9 Unspecified place or not applicable; Y99.9 Unspecified external cause status; X58.XXXA Exposure to other specified factors, initial encounter

== ENCOUNTER 2018-09-29 11:00 | Outpatient (RCR) | payer BC | END 2018-10-15 | LOC: M PT 11:00 | PROVIDERS: ATTEND Physician Assistant Medical | DX: M25.562 Pain in left knee (principal) ==

== ENCOUNTER 2018-11-01 10:05 | Emergency (ER) | payer BC ==
[~2018-11-01] VITALS: Ht 154.9 cm; Wt 109.1 kg
[~2018-11-01 10:05] MED LIST changes: +CYAN100T5 PO; +HYDR-3715 PO; -LISI-542; +LISI-542 PO; -NEO/1SUS OT; +NEOM1SUS10 OT; -NORCOTAB PO; -VITA1TAB22 PO
--- NOTE | 2018-11-01 10:46 | REP ---
Chest one-view HISTORY: Chest pain Comparison: 07/26/2018 The lungs are clear. The heart is normal in size. The pulmonary vasculature is normal in appearance. Impression: No acute disease. Electronically Signed by Jonah Rasmussen MD 11/01/2018 10:38 A
[2018-11-01 10:51] LABS: BASO # 0.1 10^3/uL (0.0-0.2); BASO % 0.6 % (0.0-1.0); EOS # 0.3 10^3/uL (0.0-0.50); HEMOGLOBIN 12.5 g/dl (12.0-15.5); MEAN CORPUSCULAR HGB CONC 32.1 g/dl (32.0-36.5); MEAN CORPUSCULAR VOLUME 84.2 fl (80.0-96.0); MONO % 6.5 % (0.0-5.0); NEUTROPHILS # 11.1 10^3/uL (1.8-7.7); NEUTROPHILS % 71.1 % (36.0-66.0); PLATELET COUNT, AUTOMATED 319 10^3/uL (150-450); RED BLOOD COUNT 4.63 10^6/uL (4.00-5.40); WHITE BLOOD COUNT 15.6 10^3/uL (4.0-10.0)
[2018-11-01] MEDS ORDERED: ASPIRIN 81 MG CHEW TABLET PO ONE (11:00)
[2018-11-01] MEDS ORDERED: NITROGLYCERIN 0.4 MG SUBL TABLET SL PRN (11:00)
[2018-11-01 11:01] LABS: INR 0.98; PROTHROMBIN TIME 13.1 SECONDS (12.1-14.4)
[2018-11-01 11:02] LABS: PARTIAL THROMBOPLASTIN TIME 34.6 SECONDS (25.4-37.6)
[2018-11-01 11:19] LABS: ALBUMIN 3.2 GM/DL (3.2-5.2); ALT/SGPT 19 U/L (12-78); BILIRUBIN,DIRECT 0.1 MG/DL (0.0-0.2); BILIRUBIN,TOTAL 0.4 MG/DL (0.2-1.0); BLOOD UREA NITROGEN 10 MG/DL (7-18); CALCIUM LEVEL 8.4 MG/DL (8.5-10.1); CARBON DIOXIDE LEVEL 25 MEQ/L (21-32); CHLORIDE LEVEL 106 MEQ/L (98-107); CPK CREATINE PHOSPHOKINASE 53 U/L (26-192); CREATININE FOR GFR 0.79 MG/DL (0.55-1.30); FREE T4 1.39 NG/DL (0.76-1.46); GLOMERULAR FILTRATION RATE > 60.0 (>58); GLUCOSE, FASTING 84 MG/DL (70-100); LIPASE 105 U/L (73-393); MB/CK RELATIVE INDEX 3.02 (< OR =4); POTASSIUM SERUM 4.4 MEQ/L (3.5-5.1); SODIUM LEVEL 137 MEQ/L (136-145); THYROID STIMULATING HORMONE 0.022 uIU/ML (0.358-3.740); TOTAL PROTEIN 6.1 GM/DL (6.4-8.2); TROPONIN I < 0.02 NG/ML (< 0.10)
[2018-11-01 11:28] VITALS: BP 179/112
[2018-11-01] MEDS ORDERED: IBUPROFEN 600 MG TAB PO ONE (12:15)
[2018-11-01] MEDS ORDERED: PROMETHAZINE INJ 25 MG/ML VIAL (J2550) IV ONE ×2 (12:30→17:15)
[2018-11-01] MEDS ORDERED: MECLIZINE 25 MG TABLET PO ONE (12:45)
[2018-11-01 13:23] LABS: ERYTHROCYTE SEDIMENTATION RATE 117 mm/hr (0-20)
--- NOTE | 2018-11-01 13:23 | REP ---
CERVICAL SPINE, SEVEN VIEWS: HISTORY: Neck pain. The cervical spine is visualized from C1 to the C6-7 level in the lateral radiographs. There is no acute fracture or subluxation. The intervertebral discs are normal in height. The neural foramina are patent. IMPRESSION: There is no acute fracture or subluxation. Electronically Signed by Jonah Rasmussen MD 11/01/2018 01:26 P
--- NOTE | 2018-11-01 13:42 | REP ---
CT Head without contrast HISTORY: Headache COMPARISON: None There is no intraparenchymal hemorrhage, acute infarct, mass or midline shift. The ventricular system is normal in appearance. There is no extra cerebral collection. There is no fracture. The visualized sinuses are clear. IMPRESSION: There is no intracranial lesion. Electronically Signed by Jonah Rasmussen MD 11/01/2018 01:33 P
[2018-11-01 13:51] LABS: CPK CREATINE PHOSPHOKINASE 58 U/L (26-192); MB/CK RELATIVE INDEX 2.41 (< OR =4); TROPONIN I < 0.02 NG/ML (< 0.10)
[2018-11-01 14:41] LABS: C REACTIVE PROTEIN QUANTITATIV 0.74 MG/DL (0.00-0.30)
[2018-11-01] MEDS ORDERED: predniSONE 20 MG TAB PO ONE (15:30)
[2018-11-01 16:17] LABS: FERRITIN 10 NG/ML (8-252)
--- NOTE | 2018-11-01 16:34 | REP ---
Temporal artery duplex ultrasound for temporal arteritis: The patient complains of pain on the right. There is no temporal artery stenosis or occlusion on the right on the left. There is no wall thickening. There is no circumferential hypoechoic halo on the right on the left. Impression: There is no ultrasound evidence of temporal arteritis on the right or the left. Electronically Signed by Dennis Grossman MD 11/01/2018 04:25 P
--- NOTE | 2018-11-01 18:36 | REPVR ---
EXAM: MR Head Without Contrast EXAM DATE/TIME: 11/01/2018 6:06 PM CLINICAL HISTORY: 48 years old, female; Pain; Other: Vertigo TECHNIQUE: Imaging protocol: MR of the head without contrast. COMPARISON: Thyroid, ST head+neck US 11/01/2018 3:01 PM FINDINGS: Brain: Normal. No hemorrhage. No significant white matter disease. No edema. Ventricles: Normal. No ventriculomegaly. Bones/joints: Unremarkable. Soft tissues: Normal. Sinuses: Mild bilateral ethmoid sinusitis. Mastoid air cells: Normal as visualized. No mastoid effusion. Orbits: Unremarkable. IMPRESSION: No acute intracranial findings. Electronically signed by: Jorge Chacon On 11/01/2018 18:36:01 PM
[2018-11-01] MEDS ORDERED: PROM25TA12 PO (19:15)
[2018-11-01 19:24] VITALS: BP 111/59
[2018-11-02 10:12] LABS: ALBUMIN % 53.4 % (55.8-66.1); ALPHA-1-GLOBULIN % 5.1 % (2.9-4.9); ALPHA-1-GLOBULINS 0.31 GM/DL (0.17-0.41); ALPHA-2-GLOBULINS 0.72 GM/DL (0.42-0.99); BETA-1-GLOBULINS % 8.7 % (4.7-7.2); BETA-2-GLOBULINS % 7.9 % (3.2-6.5); GAMMA GLOBULIN % 12.9 % (11.1-18.8)
[2018-11-02 10:13] LABS: BETA-1-GLOBULINS 0.52 GM/DL (0.28-0.60); BETA-2-GLOBULINS 0.47 GM/DL (0.19-0.55); GAMMA GLOBULINS 0.77 GM/DL (0.65-1.58)
--- NOTE | 2018-11-02 21:29 | ECGEPIP ---
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
--- NOTE | 2018-11-02 21:32 | ECGEPIP ---
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
[2018-11-03 14:43] LABS: ANTINUCLEAR ANTIBODIES DIRECT Negative (Negative)
[2018-11-16] MEDS ORDERED: VENTAER INH (10:34)
== END 2018-11-01 19:36 | disposition home or self-care (01) ==
LOC: M ED 10:05
DX: R68.84 Jaw pain (principal); D72.829 Elevated white blood cell count, unspecified; J45.909 Unspecified asthma, uncomplicated; J44.9 Chronic obstructive pulmonary disease, unspecified; F32.9 Major depressive disorder, single episode, unspecified; E03.9 Hypothyroidism, unspecified; K21.9 Gastro-esophageal reflux disease without esophagitis; Z79.899 Other long term (current) drug therapy

== ENCOUNTER 2018-11-04 12:54 | Emergency (ER) | payer BC ==
[~2018-11-04] VITALS: Ht 154.9 cm; Wt 109.1 kg
[~2018-11-04 12:54] MED LIST changes: +PROM25TA12 PO
[2018-11-04] MEDS ORDERED: MECLIZINE 25 MG TABLET PO ONE (14:15)
[2018-11-04] MEDS ORDERED: KETOROLAC 30 MG/ML VIAL (J1885) IV ONE (14:15)
[2018-11-04 14:30] LABS: BASO # 0.1 10^3/uL (0.0-0.2); BASO % 0.6 % (0.0-1.0); EOS # 0.7 10^3/uL (0.0-0.50); HEMATOCRIT 40.1 % (36.0-47.0); HEMOGLOBIN 12.6 g/dl (12.0-15.5); LYMPH # 3.7 10^3/uL (1.5-4.5); LYMPH % 31.4 % (24.0-44.0); MEAN CORPUSCULAR HEMOGLOBIN 26.6 pg (27.0-33.0); MEAN CORPUSCULAR HGB CONC 31.4 g/dl (32.0-36.5); MEAN CORPUSCULAR VOLUME 84.8 fl (80.0-96.0); MONO # 0.7 10^3/uL (0.0-0.8); NEUTROPHILS # 6.6 10^3/uL (1.8-7.7); NEUTROPHILS % 55.7 % (36.0-66.0); PLATELET COUNT, AUTOMATED 282 10^3/uL (150-450); RED BLOOD COUNT 4.73 10^6/uL (4.00-5.40); WHITE BLOOD COUNT 11.8 10^3/uL (4.0-10.0)
[2018-11-04 14:51] LABS: BLOOD UREA NITROGEN 7 MG/DL (7-18); C REACTIVE PROTEIN QUANTITATIV 0.54 MG/DL (0.00-0.30); CALCIUM LEVEL 7.8 MG/DL (8.5-10.1); CARBON DIOXIDE LEVEL 28 MEQ/L (21-32); CHLORIDE LEVEL 106 MEQ/L (98-107); CREATININE FOR GFR 0.85 MG/DL (0.55-1.30); GLOMERULAR FILTRATION RATE > 60.0 (>58); GLUCOSE, FASTING 85 MG/DL (70-100); POTASSIUM SERUM 4.1 MEQ/L (3.5-5.1); SODIUM LEVEL 139 MEQ/L (136-145)
[2018-11-04] MEDS ORDERED: carBAMazepine 200 MG TAB PO ONE (16:45)
[2018-11-04] MEDS ORDERED: TEGR200T PO (17:10)
[2018-11-04 17:25] VITALS: BP 156/89
[2018-11-05 01:35] LABS: ERYTHROCYTE SEDIMENTATION RATE 8 mm/hr (0-20)
--- NOTE | 2018-11-05 09:32 | REP ---
REASON FOR EXAM: Jaw pain. PRIORS: None. Limited evaluation of the temporomandibular joints show no evidence of an acute fracture, dislocation, or subluxation. Translation appears appropriate. IMPRESSION: Limited negative plain film examination of the temporomandibular joints. If discopathy is of clinical concern, then MRI is recommended. Electronically Signed by Deon Espinoza DO 11/05/2018 01:44 P
--- NOTE | 2018-11-06 08:06 | ED PDOC ---
Post-Departure Follow-Up sherrie tripp faxed formal report of tmj xray for fu Brianna Monterroso MD Nov 06, 2018 08:06
[2018-11-16] MEDS ORDERED: VENTAER INH (10:34)
[2018-11-17] MEDS ORDERED: BUPR150T5 PO (08:22)
== END 2018-11-04 17:45 | disposition home or self-care (01) ==
LOC: M ED 12:54
DX: G44.099 Other trigeminal autonomic cephalgias (TAC), not intractable (principal); R20.2 Paresthesia of skin; Z79.1 Long term (current) use of non-steroidal anti-inflammatories (NSAID); Z79.3 Long term (current) use of hormonal contraceptives; Z79.51 Long term (current) use of inhaled steroids; Z79.899 Other long term (current) drug therapy
CPT/HCPCS: 70330; 80048; 85025; 85652; 86140; 93041; 94760; 96374; 99285; J1885

== ENCOUNTER → 2018-11-13 | Outpatient (CLI) | payer BC ==
[~2018-11-13] MED LIST changes: +TEGR200T PO; +VENTAER INH
[2018-11-13 16:57] LABS: BASO # 0.1 10^3/uL (0.0-0.2); EOS # 0.4 10^3/uL (0.0-0.50); EOS % 4.5 % (0.0-3.0); HEMATOCRIT 39.4 % (36.0-47.0); HEMOGLOBIN 12.4 g/dl (12.0-15.5); LYMPH # 3.6 10^3/uL (1.5-4.5); LYMPH % 39.1 % (24.0-44.0); MEAN CORPUSCULAR HEMOGLOBIN 26.6 pg (27.0-33.0); MEAN CORPUSCULAR HGB CONC 31.5 g/dl (32.0-36.5); MEAN CORPUSCULAR VOLUME 84.5 fl (80.0-96.0); MONO # 0.5 10^3/uL (0.0-0.8); MONO % 5.8 % (0.0-5.0); NEUTROPHILS # 4.5 10^3/uL (1.8-7.7); NEUTROPHILS % 49.3 % (36.0-66.0); PLATELET COUNT, AUTOMATED 322 10^3/uL (150-450); RED BLOOD COUNT 4.66 10^6/uL (4.00-5.40); WHITE BLOOD COUNT 9.2 10^3/uL (4.0-10.0)
[2018-11-13 17:17] LABS: ERYTHROCYTE SEDIMENTATION RATE 12 mm/hr (0-20)
== END ==
LOC: M LAB 16:12
PROVIDERS: ATTEND Surgery Vascular Surgery
DX: R51 Headache (principal)

== ENCOUNTER 2018-11-17 10:07 | Day surgery (SDC) | payer BC ==
[~2018-11-17] VITALS: Ht 154.9 cm; Wt 110.9 kg
[~2018-11-17 10:07] MED LIST changes: +BUPR150T5 PO
[2018-11-17] MEDS ORDERED: LR 1,000 ML IV ONE (11:45)
[2018-11-17] MEDS ORDERED: PROPOFOL 200 MG/20 ML VIAL As Ordered ONE ×2 (12:47→14:08)
[2018-11-17] MEDS ORDERED: LIDOCAINE 2% INJ 100 MG/5 ML SDV (FOR ANES.) As Ordered ONE (12:47)
[2018-11-17] MEDS ORDERED: fentaNYL 100 MCG/2 ML INJECTION (J3010) As Ordered ONE (12:48)
[2018-11-17] MEDS ORDERED: MIDAZOLAM INJ 2 MG/2 ML VIAL (J2250) As Ordered ONE (12:48)
[2018-11-17] MEDS ORDERED: LIDOCAINE 1% SDV INJ 30 ML VIAL As Ordered ONE (13:56)
[2018-11-17] MEDS ORDERED: BUPIVACAINE HCL 0.5% 30 ML VIAL As Ordered ONE (13:56)
[2018-11-17] MEDS ORDERED: dexameTHASONE 4 MG/ML 1ML VIAL (J1100) As Ordered ONE (14:22)
[2018-11-17] MEDS ORDERED: ONDANSETRON 4MG/2ML VIAL (J2405) As Ordered ONE (14:22)
[2018-11-17 14:33] VITALS: BP 127/70
[2018-11-17] MEDS ORDERED: LR 1,000 ML IV SCH (15:00)
[2018-11-17] MEDS ORDERED: ONDANSETRON 4MG/2ML VIAL (J2405) IV PRN (15:00)
[2018-11-17] MEDS ORDERED: METOCLOPRAMIDE INJ 10MG/2ML VIAL (J2765) IV PRN (15:00)
[2018-11-17] MEDS ORDERED: fentaNYL 100 MCG/2 ML INJECTION (J3010) IV PRN (15:00)
[2018-11-17] MEDS ORDERED: PERCOCET 5MG/325MG TAB PO PRN (15:00)
[2018-11-28] MEDS ORDERED: CARB1TAB20 PO (08:39)
[2018-11-28] MEDS ORDERED: ZONE25CA6 PO (08:39)
--- NOTE | 2018-12-21 20:45 | RO ---
DATE OF PROCEDURE: 11/17/2018 PREPROCEDURE DIAGNOSIS: Headache, temporal artery tenderness. POSTPROCEDURE DIAGNOSIS: Headache, temporal artery tenderness. PROCEDURE: Right temporal artery biopsy. SURGEON: Dr. Emilio Eaton STEWARD/STEWARDESS THIRD CLASS: INDICATION: The patient is a 48-year-old female with a persistent headache and tenderness over the temporal artery bilaterally. The patient will undergo a temporal artery biopsy. ANESTHESIA: Local monitored anesthesia care (MAC). ESTIMATED BLOOD LOSS: 25 mL. IV FLUIDS: 700 mL. SPECIMEN: Right temporal artery. DESCRIPTION OF PROCEDURE: The patient was taken to the operating room. The patient was prepped and draped in a standard surgical fashion. A 6 cm section of right temporal artery was taken through an incision in the right buddhism region. The incision was closed using #3-0 Monocryl suture. Steri-Strips and dressings were applied. The patient tolerated the procedure well. All instrument, sponge, and needle counts were correct at the end the case. There were no complications. Dr. Eaton was present for and directed the entire case. The patient was transferred to the recovery room in stable condition.
== END 2018-11-17 15:15 | disposition home or self-care (01) ==
LOC: M SDC 10:07
PROVIDERS: ATTEND Surgery Vascular Surgery
DX: G44.1 Vascular headache, not elsewhere classified (principal)
CPT/HCPCS: 36415; 37609; 82306; 82728; 83520; 83735; 86256; 88305; J1100; J2250; J2405; J3010

== ENCOUNTER → 2018-11-20 | Outpatient (REF) | payer BC | LOC: M LAB REF 17:19 | PROVIDERS: ATTEND Internal Medicine Hematology & Oncology | DX: E83.51 Hypocalcemia (principal); E87.8 Other disorders of electrolyte and fluid balance, not elsewhere classified ==

== ENCOUNTER → 2018-11-22 | Outpatient (REF) | payer BC ==
[~2018-11-22] MED LIST changes: +CARB1TAB20 PO; +ZONE25CA6 PO
== END ==
LOC: M LAB REF 17:27
PROVIDERS: ATTEND Internal Medicine Hematology & Oncology
DX: E83.51 Hypocalcemia (principal)

== ENCOUNTER → 2019-01-06 | Outpatient (CLI) | payer BC ==
--- NOTE | 2019-01-08 09:30 | REP ---
MRI cervical spine without contrast: History: Neck pain. Comparison radiographs are from November 01, 2018. Technique: Sagittal and axial T1 and T2-weighted scans are acquired in the usual fashion with and without fat saturation. Sequences include spin echo, turbo spin-echo, and STIR imaging sequences. MRI findings: There is reversal of the normal cervical lordosis. Alignment is otherwise normal. No bony destructive lesion is seen. No fracture or collapse is noted. Disc spaces are maintained. Craniocervical junction is unremarkable. Cervical cord shows normal homogeneous T1 and T2-weighted signal intensity and it is normal in course and caliber. There is a small focal central disc protrusion at the C6-7 level which indents the ventral margin of the thecal sac. This does not compress the cord. No central canal stenosis or neural foraminal narrowing is seen. The other disc levels are unremarkable. No other disc protrusion is seen. There is minimal disc bulging at C3-4 diffusely. Impression: Small central focal disc protrusion at C6-7 indenting the ventral margin of the thecal sac. No cord compression seen. Reversal of the normal cervical lordosis. Otherwise negative. Electronically Signed by Hari Nguyen MD 01/08/2019 01:13 P
== END ==
LOC: M RAD 10:42
PROVIDERS: ATTEND Psychiatry & Neurology Neurology
DX: M50.223 Other cervical disc displacement at C6-C7 level (principal)

== ENCOUNTER 2019-01-09 11:48 | Day surgery (SDC) | payer BC ==
[~2019-01-09] VITALS: Ht 154.9 cm; Wt 102.5 kg
[~2019-01-09 11:48] MED LIST changes: +NS 1,000 ML IV ONE
[2019-01-09] MEDS ORDERED: LIDOCAINE 2% INJ 100 MG/5 ML SDV (FOR ANES.) As Ordered ONE (13:25)
[2019-01-09] MEDS ORDERED: PROPOFOL 500 MG/50 ML VIAL As Ordered ONE (13:25)
[2019-01-09] MEDS ORDERED: fentaNYL 100 MCG/2 ML INJECTION (J3010) As Ordered ONE (13:25)
--- NOTE | 2019-01-09 14:00 | ROOR ---
Patient Name: Arabella Cleveland Procedure Date: 01/09/2019 1:04 PM Date of : 1970 Age: 48 Room: [facility] Gender: Female Note Status: Finalized Procedure: Upper GI endoscopy Indications: Iron deficiency anemia Providers: Conner Jennings MD Referring MD: Robina SANCHEZ Requesting Provider: Medicines: Monitored Anesthesia Care Complications: No immediate complications. Procedure: Pre-Anesthesia Assessment: - Prior to the procedure, a History and Physical was performed, and patient medications and allergies were reviewed. The patient is competent. The risks and benefits of the procedure and the sedation options and risks were discussed with the patient. All questions were answered and informed consent was obtained. Patient identification and proposed procedure were verified by the physician, the nurse and the anesthesiologist in the procedure room. Mental Status Examination: alert and oriented. Airway Examination: normal oropharyngeal airway and neck mobility. Respiratory Examination: clear to auscultation. CV Examination: normal. Prophylactic Antibiotics: The patient does not require prophylactic antibiotics. Prior Anticoagulants: The patient has taken no previous anticoagulant or antiplatelet agents. ASA Grade Assessment: II - A patient with mild systemic disease. After reviewing the risks and benefits, the patient was deemed in satisfactory condition to undergo the procedure. The anesthesia plan was to use monitored anesthesia care (MAC). Immediately prior to administration of medications, the patient was re-assessed for adequacy to receive sedatives. The heart rate, respiratory rate, oxygen saturations, blood pressure, adequacy of pulmonary ventilation, and response to care were monitored throughout the procedure. The physical status of the patient was re-assessed after the procedure. The Endoscope was introduced through the mouth, and advanced to the second part of duodenum. The upper GI endoscopy was accomplished without difficulty. The patient tolerated the procedure well. Findings: The Z-line was regular and was found 39 cm from the incisors. Segmental moderate inflammation characterized by erosions, friability and granularity was found in the gastric antrum. Biopsies were taken with a cold forceps for Helicobacter pylori testing. Verification of patient identification for the specimen was done by the physician and nurse using the patient's name, date and medical record number. Estimated blood loss was minimal. The duodenal bulb and second portion of the duodenum were normal. Biopsies for histology were taken with a cold forceps for evaluation of celiac disease. Impression: - Z-line regular, 39 cm from the incisors. - Gastritis. Biopsied. - Normal duodenal bulb and second portion of the duodenum. Biopsied. Recommendation: - Patient has a contact number available for emergencies. The signs and symptoms of potential delayed complications were discussed with the patient. Return to normal activities tomorrow. Written discharge instructions were provided to the patient. - Resume previous diet. - Continue present medications. - Await pathology results. - Return to GI clinic in 3 months. - Check Iron studies and CBC prior to clinic visit in 3 months. - Return to primary care physician. Conner Jennings MD Conner Jennings MD 01/09/2019 2:00:05 PM Electronically signed by Conner Jennings MD Number of Addenda: 0 Note Initiated On: 01/09/2019 1:04 PM Estimated Blood Loss: Estimated blood loss was minimal.
[2019-01-09 14:05] VITALS: BP 128/85
--- NOTE | 2019-01-09 14:28 | ROOR ---
Patient Name: Arabella Cleveland Procedure Date: 01/09/2019 1:04 PM Date of : 1970 Age: 48 Room: [facility] Gender: Female Note Status: Finalized Procedure: Colonoscopy Indications: Iron deficiency anemia Providers: Conner Jennings MD Referring MD: Robina SANCHEZ Requesting Provider: Medicines: Monitored Anesthesia Care Complications: No immediate complications. Procedure: Pre-Anesthesia Assessment: - Prior to the procedure, a History and Physical was performed, and patient medications and allergies were reviewed. The patient is competent. The risks and benefits of the procedure and the sedation options and risks were discussed with the patient. All questions were answered and informed consent was obtained. Patient identification and proposed procedure were verified by the physician, the nurse and the anesthesiologist in the procedure room. Mental Status Examination: alert and oriented. Airway Examination: normal oropharyngeal airway and neck mobility. Respiratory Examination: clear to auscultation. CV Examination: normal. Prophylactic Antibiotics: The patient does not require prophylactic antibiotics. Prior Anticoagulants: The patient has taken no previous anticoagulant or antiplatelet agents. ASA Grade Assessment: II - A patient with mild systemic disease. After reviewing the risks and benefits, the patient was deemed in satisfactory condition to undergo the procedure. The anesthesia plan was to use monitored anesthesia care (MAC). Immediately prior to administration of medications, the patient was re-assessed for adequacy to receive sedatives. The heart rate, respiratory rate, oxygen saturations, blood pressure, adequacy of pulmonary ventilation, and response to care were monitored throughout the procedure. The physical status of the patient was re-assessed after the procedure. The Colonoscope was introduced through the anus and advanced to the terminal ileum, with identification of the appendiceal orifice and IC valve. The colonoscopy was performed without difficulty. The patient tolerated the procedure well. The quality of the bowel preparation was good. The terminal ileum, ileocecal valve, appendiceal orifice, and rectum were photographed. Scope insertion time was 3 minutes. Scope withdrawal time was 9 minutes. The total duration of the procedure was 12 minutes. Findings: The perianal and digital rectal examinations were normal. The terminal ileum appeared normal. Non-bleeding external and internal hemorrhoids were found during retroflexion. The hemorrhoids were medium-sized. No other significant abnormalities were identified in a careful examination of the remainder of the colon. Impression: - The examined portion of the ileum was normal. - Non-bleeding external and internal hemorrhoids. - No specimens collected. Recommendation: - Patient has a contact number available for emergencies. The signs and symptoms of potential delayed complications were discussed with the patient. Return to normal activities tomorrow. Written discharge instructions were provided to the patient. - Resume previous diet. - Continue present medications. - Check CBC and iron studies prior to clinic follow up in 3 months. - Return to GI clinic in 3 months. - Return to primary care physician. Conner Jennings MD Conner Jennings MD 01/09/2019 2:28:18 PM Electronically signed by Conner Jennings MD Number of Addenda: 0 Note Initiated On: 01/09/2019 1:04 PM Estimated Blood Loss: Estimated blood loss: none.
== END 2019-01-09 14:12 | disposition home or self-care (01) ==
LOC: M OPP 11:48
PROVIDERS: ATTEND Internal Medicine Gastroenterology
DX: K64.8 Other hemorrhoids (principal); D50.9 Iron deficiency anemia, unspecified; K29.70 Gastritis, unspecified, without bleeding
CPT/HCPCS: 43239; 45378; 88305; J3010

== ENCOUNTER → 2019-05-11 | Outpatient (CLI) | payer BC ==
[~2019-05-11] MED LIST changes: -NS 1,000 ML IV ONE; -OMEP20CA3 PO; +OMEP20CA4 PO
[2019-05-11 17:42] LABS: FREE T4 1.2 NG/DL (0.76-1.46); PERCENT SATURATION 13.7 % (13.2-45.0); THYROID STIMULATING HORMONE 0.118 uIU/ML (0.358-3.740)
== END ==
LOC: M LAB 16:11
PROVIDERS: ATTEND Physician Assistant Medical
DX: F41.9 Anxiety disorder, unspecified (principal); E61.1 Iron deficiency

== ENCOUNTER → 2019-06-11 | Outpatient (CLI) | payer BC ==
[2019-06-11 10:44] LABS: BASO # 0.1 10^3/uL (0.0-0.2); BASO % 0.9 % (0.0-1.0); EOS # 0.7 10^3/uL (0.0-0.5); EOS % 7.8 % (0.0-3.0); HEMATOCRIT 41.7 % (36.0-47.0); HEMOGLOBIN 13.4 g/dl (12.0-15.5); LYMPH # 2.8 10^3/uL (1.5-5.0); LYMPH % 30.7 % (24.0-44.0); MEAN CORPUSCULAR HEMOGLOBIN 30.4 pg (27.0-33.0); MEAN CORPUSCULAR HGB CONC 32.1 g/dl (32.0-36.5); MEAN CORPUSCULAR VOLUME 94.6 fl (80.0-96.0); MONO # 0.5 10^3/uL (0.0-0.8); MONO % 5.2 % (0.0-5.0); NEUTROPHILS % 54.5 % (36.0-66.0); PLATELET COUNT, AUTOMATED 253 10^3/uL (150-450); RED BLOOD COUNT 4.41 10^6/uL (4.00-5.40); WHITE BLOOD COUNT 9.1 10^3/uL (4.0-10.0)
[2019-06-11 11:16] LABS: BLOOD UREA NITROGEN 16 MG/DL (7-18); CREATININE FOR GFR 0.83 MG/DL (0.55-1.30); FERRITIN 76 NG/ML (8-252); GLOMERULAR FILTRATION RATE > 60.0 (>58); IRON (FE) 59 UG/DL (50-170); LDH LACTATE DEHYDROGENASE 115 U/L (84-246); PERCENT SATURATION 19.5 % (13.2-45.0); TOTAL IRON BINDING CAPACITY 302 UG/DL (250-450)
[2019-06-11 11:28] LABS: VITAMIN B12 LEVEL 316 PG/ML
== END ==
LOC: M LAB 08:40
PROVIDERS: ATTEND Internal Medicine Gastroenterology
DX: D50.9 Iron deficiency anemia, unspecified (principal)

== ENCOUNTER 2019-07-17 16:41 | Emergency (ER) | payer BC ==
[~2019-07-17] VITALS: Ht 154.9 cm; Wt 109.1 kg
[~2019-07-17 16:41] MED LIST changes: +OMEP-172 PO; -OMEP20CA4 PO
[2019-07-17] MEDS ORDERED: ACETAMINOPHEN 500 MG TAB PO ONE (17:15)
[2019-07-17] MEDS ORDERED: PROCHLORPERAZINE 5 MG TAB (S0183) PO ONE (17:30)
--- NOTE | 2019-07-17 17:48 | REPVR ---
PROCEDURE INFORMATION: Exam: CT Head Without Contrast Exam date and time: 07/17/2019 5:28 PM Age: 49 years old Clinical indication: Pain; Headache; Additional info: Fall to left confucianism, continuous headache one week TECHNIQUE: Imaging protocol: Computed tomography of the head without contrast. Radiation optimization: All CT scans at this facility use at least one of these dose optimization techniques: automated exposure control; mA and/or kV adjustment per patient size (includes targeted exams where dose is matched to clinical indication); or iterative reconstruction. COMPARISON: CT Head without contrast 11/01/2018 1:18 PM FINDINGS: Brain: Normal. No hemorrhage. Unremarkable white matter. No mass effect. Ventricles: Normal. No ventriculomegaly. Bones/joints: Unremarkable. No acute fracture. Sinuses: Inflammatory changes right maxillary sinus. Mild inflammatory changes ethmoid sinuses. Mastoid air cells: Visualized mastoid air cells are well aerated. Soft tissues: Unremarkable. IMPRESSION: No acute intracranial findings. Electronically signed by: Jorge Chacon On 07/17/2019 17:47:58 PM
--- NOTE | 2019-07-17 17:51 | REPVR ---
PROCEDURE INFORMATION: Exam: CT Maxillofacial Without Contrast Exam date and time: 07/17/2019 5:28 PM Age: 49 years old Clinical indication: Eye pain; Left; Additional info: Bony tenderness around left eye TECHNIQUE: Imaging protocol: Computed tomography images of the face without contrast. Radiation optimization: All CT scans at this facility use at least one of these dose optimization techniques: automated exposure control; mA and/or kV adjustment per patient size (includes targeted exams where dose is matched to clinical indication); or iterative reconstruction. COMPARISON: CT Maxilofacial w/out contrast 05/23/2017 4:43 AM FINDINGS: Orbits: Orbits are normal. Globes are unremarkable. Sinuses: Inflammatory changes right maxillary sinus. Mild bilateral ethmoid sinusitis. Bones/joints: No acute fracture. Soft tissues: Unremarkable. IMPRESSION: 1. Inflammatory changes right maxillary sinus. 2. Mild bilateral ethmoid sinusitis. 3. No fracture. Electronically signed by: Jorge Chacon On 07/17/2019 17:51:09 PM
[2019-07-17 17:56] LABS: BASO # 0.1 10^3/uL (0.0-0.2); BASO % 0.6 % (0.0-1.0); EOS # 0.6 10^3/uL (0.0-0.5); EOS % 6.2 % (0.0-3.0); HEMATOCRIT 42.6 % (36.0-47.0); HEMOGLOBIN 13.8 g/dl (12.0-15.5); LYMPH # 4.2 10^3/uL (1.5-5.0); LYMPH % 41.5 % (24.0-44.0); MEAN CORPUSCULAR HEMOGLOBIN 29.8 pg (27.0-33.0); MEAN CORPUSCULAR HGB CONC 32.4 g/dl (32.0-36.5); MONO # 0.6 10^3/uL (0.0-0.8); MONO % 5.7 % (0.0-5.0); NEUTROPHILS # 4.6 10^3/uL (1.5-8.5); NEUTROPHILS % 45.6 % (36.0-66.0); PLATELET COUNT, AUTOMATED 258 10^3/uL (150-450); RED BLOOD COUNT 4.63 10^6/uL (4.00-5.40)
[2019-07-17 18:07] LABS: INR 1.04; PROTHROMBIN TIME 13.4 SECONDS (11.8-14.0)
[2019-07-17 18:08] LABS: PARTIAL THROMBOPLASTIN TIME 36.4 SECONDS (25.0-38.4)
[2019-07-17 18:25] LABS: ERYTHROCYTE SEDIMENTATION RATE 5 mm/hr (0-20)
[2019-07-17 18:37] VITALS: BP 135/82
[2019-07-17] MEDS ORDERED: AUGM875T28 PO (18:53)
== END 2019-07-17 19:10 | disposition home or self-care (01) ==
LOC: M ED 16:41
DX: G44.209 Tension-type headache, unspecified, not intractable (principal); J32.0 Chronic maxillary sinusitis; I10 Essential (primary) hypertension; D68.0 Von Willebrand disease; E03.9 Hypothyroidism, unspecified; F33.9 Major depressive disorder, recurrent, unspecified; F41.9 Anxiety disorder, unspecified; G47.33 Obstructive sleep apnea (adult) (pediatric); K21.9 Gastro-esophageal reflux disease without esophagitis; J42 Unspecified chronic bronchitis; Z79.899 Other long term (current) drug therapy; Z79.890 Hormone replacement therapy

== ENCOUNTER → 2019-08-01 | Outpatient (CLI) | payer BC ==
[~2019-08-01] MED LIST changes: +AUGM875T28 PO; +E-Z-PAQUE 96% w/w SUSP 176GM BTL As Ordered ONE; -OMEP-172 PO; +OMEP1CAP73 PO
--- NOTE | 2019-08-01 18:22 | REP ---
Small bowel follow-through The procedure was performed under the direct supervision of Dr. Nguyen. The images were reviewed with Dr. Nguyen. The remediation project engineer film shows no organomegaly or pathological masses. The intestinal gas pattern is nonspecific. There are surgical clips noted in the right upper quadrant. Liquid barium was administered and the barium column was followed through the small bowel to the level of the terminal ileum. Small bowel transit time is approximately 1 hour . During fluoroscopy gentle palpation shows all loops are freely movable and pliable. There are no fixed or angulated loops. The small bowel mucosal pattern is normal in course and caliber. There is no transition to suggest a partial small bowel obstruction. Spot filming of the terminal ileum shows it to be unremarkable. Impression: Small bowel follow-through examination within normal limits. 1.3 minutes of fluoro time was utilized for this procedure. Electronically Signed by JEAN MARIE Mallory 08/01/2019 04:16 P Electronically Signed by Hari Nguyen MD 08/01/2019 06:13 P
== END ==
LOC: M RAD 08:18
PROVIDERS: ATTEND Physician Assistant Medical
DX: E61.1 Iron deficiency (principal)

== ENCOUNTER 2019-08-18 13:33 | Emergency (ER) | payer BC ==
[~2019-08-18] VITALS: Ht 154.9 cm; Wt 106.7 kg
[~2019-08-18 13:33] MED LIST changes: -E-Z-PAQUE 96% w/w SUSP 176GM BTL As Ordered ONE
[2019-08-18 13:34] VITALS: BP 139/78
[2019-08-18] MEDS ORDERED: MUPI2OI (13:56)
[2019-08-18] MEDS ORDERED: BUPR1TAB56 PO (13:56)
[2019-08-18] MEDS ORDERED: ZONI100C17 (13:56)
[2019-08-18] MEDS ORDERED: SUCR1TAB56 (13:56)
[2019-08-18] MEDS ORDERED: BACTRIM 160MG/800MG DS TAB PO ONE (14:15)
[2019-08-18] MEDS ORDERED: BACT800T5 PO (14:16)
== END 2019-08-18 14:38 | disposition home or self-care (01) ==
LOC: M ED 13:33
DX: L03.311 Cellulitis of abdominal wall (principal); R11.0 Nausea; Z86.14 Personal history of Methicillin resistant Staphylococcus aureus infection; I10 Essential (primary) hypertension; J45.909 Unspecified asthma, uncomplicated; Z79.51 Long term (current) use of inhaled steroids; Z79.84 Long term (current) use of oral hypoglycemic drugs; Z79.899 Other long term (current) drug therapy

== ENCOUNTER → 2019-08-24 | Outpatient (REF) | payer BC ==
[~2019-08-24] MED LIST changes: +BUPR1TAB56 PO; +MUPI2OI; +SUCR1TAB56; +ZONI100C17
== END ==
LOC: M SFHCPLAZ 10:30
PROVIDERS: ATTEND Physician Assistant Medical
DX: L03.311 Cellulitis of abdominal wall (principal)

== ENCOUNTER → 2020-05-08 | Outpatient (REF) | payer BC ==
[~2020-05-08] MED LIST changes: -CIPR0.3S AS; +CIPR0.3S6 AS; +CYAN100T4 PO; -CYAN100T5 PO
[2020-05-08 18:04] LABS: FREE T4 1.77 NG/DL (0.76-1.46); THYROID STIMULATING HORMONE < 0.005 uIU/ML (0.358-3.740)
== END ==
LOC: M PLALAB 15:18
PROVIDERS: ATTEND Physician Assistant Medical
DX: E03.9 Hypothyroidism, unspecified (principal)

== ENCOUNTER 2020-08-16 10:19 | Emergency (ER) | payer BC ==
[~2020-08-16] VITALS: Ht 154.9 cm; Wt 113.6 kg
--- OUTSIDE RECORDS SUMMARY | 2020-08-16 10:27 | CCD ---
Author Author [facility] Organization [facility] Address Unknown Phone Unavailable Care Team Providers Care Record Tabulating Clerk Name Role Phone Robina Acosta Unavailable PROBLEMS Type Condition ICD9-CM Code [id number] Code Onset Dates Condition S tatus SNOMED Code Notes Problem Acquired hypothyroidism E03.9 Active 29311755 2 Problem Essential hypertension I10 Active 74636880 Problem Body mass index (BMI) of 40.0-44.9 in adult Z68.41 Active 122136251 Problem Obesity, unspecified E66.9 Active 10222898294 104 Problem CHRISTINA (obstructive sleep apnea) G47.33 Active 78 138462 Problem Hypomagnesemia E83.42 Active 682207415 Problem Allergic rhinitis J30.9 Active 23032764 Problem History of MRSA infection Z86.14 Active 834940 000 Problem COPD with exacerbation J44.1 Active 957413492 Problem Primary osteoarthritis of left knee M17.12 Acti ve 738087525590451 Problem Atypical angina I20.8 Active 232390931 Problem Anxiety F41.9 Active 39987803 Problem H/O methicillin resistant Staphylococcus aureus Z8 6.14 Active 760459927 Problem Gastroesophageal reflux disease with esophagitis K 21.0 Active 998821708 Problem Seasonal allergic rhinitis, unspecified trigger J3 0.2 Active 069634254 Problem Epidermal cyst of neck L72.0 Active 787214542 Problem Non-seasonal allergic rhinitis, unspecified trigger J30.89 Active 42853425 Problem Moderate persistent asthma with acute exacerbation J45.41 Active 639226159509399 Problem 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 Active 35223496 Problem Bilateral carpal tunnel syndrome G56.03 Active 86091834 Problem Dizziness R42 Active 594178255 Problem Iron deficiency E61.1 Active 51063714 ALLERGIES No Known Allergies ENCOUNTERS from 1970 to 2020-06-27 Encounter Location Date Provider Diagnosis [facility] [place] [address] Jun, Robina Calzadasarina IMMUNIZATIONS Vaccine Route Administration Date Status Influenza (18 yrs & older) Flublok IM Intramuscular May 08, 2020 Administered Influenza (18 yrs & older) Flublok IM Intramuscular May 28, 2019 Administered zz*PPD (DO NOT USE) ID Intradermal May 25, 2010 Administered Pneumococcal Adult 0.5mL (Pneumovax 23) IM Intramuscular May 07, 2019 Administered Pneumococcal 0.5mL (Prevnar 13) IM Intramuscular Jul 28, 2018 Administered Influenza (6mo & up) Fluzone IM Intramuscular Jul 12, 2018 Ad ministered Influenza (6mo & up) Fluzone IM Apr 13, 2012 Adm inistered Influenza (6mo & up) Fluzone IM May 25, 2010 Adm inistered SOCIAL HISTORY Tobacco Use: Social History Observation Description Date Details (start date - stop date) Never Smoker Sex Assigned At : Social History Observation Description Sex Assigned At Unknown Audit Question Answer Notes Total Score: 2 Interpretation: Alcohol Education Language: Question Answer Notes Languages spoken: Guatemalan Hindu: Question Answer Notes Hindu 23 Nondenominational Sexual Hx: Question Answer Notes Had sex in the last 12 months (vaginal, oral, or anal)? No LMP: Hyster Have you ever had an STD? No Drug and Alcohol Question Answer Notes Total Score: 0 Interpretation: No problems reported Alcohol Screening: Question Answer Notes Did you have a drink containing alcohol in the past year? Ye s Points 2 Interpretation Negative How often did you have six or more drinks on one occas ion in the past year? Never (0 points) How many drinks did you have on a typica l day when you were drinking in the past year? 3 or 4 (1 point) How often did you have a drink containing alcohol in t he past year? Monthly or less (1 point) BMI Care Goal Follow-Up Question Answer Notes Above Normal BMI Follow-Up Giving encouragement to exercise Tobacco Use: Question Answer Notes Are you a: never smoker REASON FOR REFERRAL No Information VITAL SIGNS No information MEDICATIONS Medication SIG (Take, Route, Frequency, Duration) Notes Start Da te End Date Status Lisinopril 5 MG 1 tablet Orally Once a day for 30 day(s) 2 2 Apr, 2020 Active Wellbutrin SR 200 MG 1 tablet in the morning Orally Once a day for 90 days Active Protonix 40 MG 1 tablet Orally Once a day Active Fluoxetine HCl 10 MG TAKE 1 CAPSULE BY MOUTH EVERY DAY Oral for 30 Active Levothyroxine Sodium 150 MCG 1 tablet in the morning o n an empty stomach Orally Once a day for 30 day(s) Apr, Active Augmentin 875-125 MG 1 tablet Orally Twice a day for 10 day(s) Jun, Active AeroChamber Plus 1 as directed 1 as directed Active Neti Pot Sinus Wash 2300-700 MG as directed Nasally bid Active Flonase Allergy Relief 50 MCG/ACT 1 spray in each nost ril Nasally Once a day for 30 Days Active Albuterol Sulfate HFA 108 (90 Base) MCG/ACT 2 puffs as needed Inhalation every 6 hrs for 30 Days Active PROzac 10 MG 1 capsule Orally Once a day for 30 Active Doxycycline Hyclate 100 MG 1 capsule Orally Twice a day for 7 da y(s) May, Not-Taking Baclofen 10 MG 1 tablet with food or milk O rally Three times a day for 30 day(s) Jan, Active Mupirocin 2 % 1 application Externally Three times a day Not-Taking PredniSONE 20 MG 1 tablet Orally bid for 5 days Jun, Active Carafate 1 GM 1 tablet on an empty stomach Orally Twice a day Active Estradiol 1 MG 1 tablet Orally Once a day for 90 day(s) November, Active Triamcinolone Acetonide 0.1 % apply to affected areas on extremities and torso Externally Twice a day for 7 day(s) Jun, Active FLUoxetine HCl 40 MG 1 capsule Orally Once a day c 10mg for 30 day(s) Active Singulair 10 MG 1 tablet Orally Once a day for 30 Days Active Claritin 10 MG 1 tablet Orally Once a day for 30 day(s) Active Breo Ellipta 100-25 MCG/INH 1 puff Inhalation Once a day for 30 Days Active Erythromycin 5 MG/GM apply small amount to left u pper eyelid Ophthalmic bid for 7 day(s) Jun, Active FLUoxetine HCl 10 MG 1 capsule Orally Once a day c 40mg for 30 d ay(s) Apr, Active PROCEDURES No Information RESULTS No Results REASON FOR VISIT medications from 06/25/2020 MEDICAL (GENERAL) HISTORY Type Description Date Medical History Asthma Medical History Hyperlipidemia Medical History Hypothyroiditis Medical History Obesity Medical History Menopausal Medical History Gerd Medical History Depression/Anxiety Medical History Insomnia Medical History MRI of R shoulder 07/02 c mi ld hypertrophic DJD of ACjoint, partial undersurface tear of supraspinatus tendon s retraction, poss. ligament sprain Medical History CT IAC s contrast L ear 05/19 017 c L Otitis externa, mild mastoiditis, mild soft tiss. thickiening in L middle ear cavity mildly increaed Medical History Recurrent MRSA Medical History hypomagnesemia Medical History allergic rhinitis Surgical History Hysterectomy, hernia repairs also 1995 Surgical History Tonsilectomy 1979 Surgical History Adnoids removed 1979 Surgical History Exploratory Surgical History Gall bladder removal 2002 Surgical History Rt knee maniscus tear 2009 Surgical History C- section x2 1991,1993 Surgical History appendectomy 2016 Surgical History Left Knee 2018 Hospitalization History reflux Hospitalization History childbirth x2 Hospitalization History Chest Pain 11/2018 Goals Section No Information Health Concerns No Information MEDICAL EQUIPMENT No Information MENTAL STATUS No Information FUNCTIONAL STATUS No Information ASSESSMENTS No Information PLAN OF TREATMENT Medication Medication Name Sig Start Date Stop Date Erythromycin 5 MG/GM apply small amount to left u pper eyelid Ophthalmic bid for 7 day(s) Jun, PredniSONE 20 MG 1 tablet Orally bid for 5 days Jun, Augmentin 875-125 MG 1 tablet Orally Twice a day for 10 day(s) 1 0 Jun, 2020 Triamcinolone Acetonide 0.1 % apply to affected areas on extremities and torso Externally Twice a day for 7 day(s) Jun, Next Appt Details Provider Name:Robina Acosta, 09-08 03:00:00 PM, [facility] [place], [address], Insurance Providers Payer Name Payer Address Payer Phone Insured Name Patient Relati onship to Insured Coverage Start Date Coverage End Date [employer] PPO [phone] [facility] [place] [id number] JERRICA RICH
--- OUTSIDE RECORDS SUMMARY | 2020-08-16 10:27 | CCD ---
Author Author [facility] Organization [facility] Address Unknown Phone Unavailable Care Team Providers Care Wedding Makeup Artist Name Role Phone Samantha Mckeon Unavailable PROBLEMS Type Condition ICD9-CM Code [id number] Code Onset Dates Condition S tatus SNOMED Code Notes Problem Acquired hypothyroidism E03.9 Active 97610554 2 Problem Essential hypertension I10 Active 83893825 Problem Body mass index (BMI) of 40.0-44.9 in adult Z68.41 Active 739118947 Problem Obesity, unspecified E66.9 Active 39546872576 104 Problem CHRISTINA (obstructive sleep apnea) G47.33 Active 78 396854 Problem Hypomagnesemia E83.42 Active 606461908 Problem Allergic rhinitis J30.9 Active 13567428 Problem History of MRSA infection Z86.14 Active 384099 000 Problem COPD with exacerbation J44.1 Active 159125362 Problem Primary osteoarthritis of left knee M17.12 Acti ve 999597550268835 Problem Atypical angina I20.8 Active 969554840 Problem Anxiety F41.9 Active 13939036 Problem H/O methicillin resistant Staphylococcus aureus Z8 6.14 Active 828570873 Problem Gastroesophageal reflux disease with esophagitis K 21.0 Active 562205848 Problem Seasonal allergic rhinitis, unspecified trigger J3 0.2 Active 444900965 Problem Epidermal cyst of neck L72.0 Active 875021732 Problem Non-seasonal allergic rhinitis, unspecified trigger J30.89 Active 44692403 Problem Moderate persistent asthma with acute exacerbation J45.41 Active 530891958270566 Problem 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 Active 36248958 Problem Bilateral carpal tunnel syndrome G56.03 Active 83865646 Problem Dizziness R42 Active 706448962 Problem Iron deficiency E61.1 Active 77897586 ALLERGIES No Known Allergies ENCOUNTERS from 1970 to 2020-07-10 Encounter Location Date Provider Diagnosis [facility] [address] [place] [phone] Jun, Samantha Mckeon Acquired hypothyroidism E03.9 and Essent ial hypertension I10 IMMUNIZATIONS Vaccine Route Administration Date Status Influenza (18 yrs & older) Flublok IM Intramuscular May 08, 2020 Administered Influenza (18 yrs & older) Flublok IM Intramuscular May 28, 2019 Administered Pneumococcal Adult 0.5mL (Pneumovax 23) IM Intramuscular May 07, 2019 Administered zz*PPD (DO NOT USE) ID Intradermal May 25, 2010 Administered Pneumococcal 0.5mL (Prevnar 13) IM Intramuscular [...] Education Language: Question Answer Notes Languages spoken: Croatian Christianity: Question Answer Notes Christianity 21 Jewish Sexual Hx: Question Answer Notes Had sex [...] Notes Start Da te End Date Status FLUoxetine HCl 10 MG 1 capsule Orally Once a day c 40mg for 30 d ay(s) Apr, Active Wellbutrin SR 200 MG 1 tablet in the morning Orally Once a day for 90 days Active Carafate 1 GM 1 tablet on an empty stomach Orally Twice a day Active Fluoxetine HCl 10 MG TAKE 1 CAPSULE BY MOUTH EVERY DAY Oral for 30 Active AeroChamber Plus 1 as directed 1 as directed Active Levothyroxine Sodium 150 MCG 1 tablet in the morning o n an empty stomach Orally Once a day for 90 day(s) Apr, Active Protonix 40 MG 1 tablet Orally Once a day Active Neti Pot Sinus Wash 2300-700 MG [...] day for 7 da y(s) May, Not-Taking Augmentin 875-125 MG 1 tablet Orally Twice a day for 10 day(s) Jun, Active Triamcinolone Acetonide 0.1 % apply to affected areas on extremities and torso Externally Twice a day for 7 day(s) Jun, Active PredniSONE 20 MG 1 tablet Orally bid for 5 days Jun, Active Baclofen 10 MG 1 tablet with food or milk O rally Three times a day for 30 day(s) Jan, Active Estradiol 1 MG 1 tablet Orally Once a day for 90 day(s) November, Active Lisinopril 5 MG 1 tablet Orally Once a day for 90 day(s) 2 2 Apr, 2020 Active Mupirocin 2 % 1 application Externally Three times a day Not-Taking Singulair 10 MG 1 tablet Orally Once [...] day c 10mg for 30 day(s) Active PROCEDURES No Information RESULTS No Results REASON FOR VISIT refill-lisinopril and levothyroxine MEDICAL (GENERAL) HISTORY Type Description Date Medical [...] No Information FUNCTIONAL STATUS No Information ASSESSMENTS Encounter Date Diagnosis Assessment Notes Treatment Notes Treatm ent Clinical Notes Jun, Acquired hypothyroidism (ICD-10 - E03.9) Jun, Essential hypertension (ICD-10 - I10) PLAN OF TREATMENT Medication Medication Name Sig Start Date Stop Date Erythromycin 5 MG/GM apply small amount to left u pper eyelid Ophthalmic bid for 7 day(s) Jun, PredniSONE 20 MG 1 tablet Orally bid for 5 days Jun, Levothyroxine Sodium 150 MCG 1 tablet in the morning o n an empty stomach Orally Once a day for 90 day(s) Apr, Lisinopril 5 MG 1 tablet Orally Once a day for 90 day(s) Apr, Augmentin 875-125 MG 1 tablet Orally Twice a day for 10 day(s) 1 Jun, 2020 Triamcinolone Acetonide 0.1 % apply to affected areas on extremities and torso Externally Twice a day for 7 day(s) Jun, Next Appt Details Provider Name:Robina Acosta, 2020- 2- 03:00:00 PM, [address] [place], [address], Insurance Providers Payer Name Payer Address Payer Phone Insured Name Patient Relati onship to Insured Coverage Start Date Coverage End Date GRAY VILLANUEVA [facility] [id number] [facility] [place] [id number] JERRICA RICH
--- OUTSIDE RECORDS SUMMARY | 2020-08-16 10:28 | CCD ---
Author Author [facility] Organization [facility] Address Unknown Phone Unavailable Care Team Providers Care Customer Counter Representative Name Role Phone Tash Navas Unavailable PROBLEMS Type Condition ICD9-CM Code OOX71-[place] Code Onset Dates Condition S tatus SNOMED Code Notes Problem Acquired hypothyroidism E03.9 Active 79496283 2 Problem Essential hypertension I10 Active 19263249 Problem Body mass index (BMI) of 40.0-44.9 in adult Z68.41 Active 419818832 Problem Obesity, unspecified E66.9 Active 60431070470 104 Problem CHRISTINA (obstructive sleep apnea) G47.33 Active 78 411987 Problem Hypomagnesemia E83.42 Active 423383195 Problem Allergic rhinitis J30.9 Active 40222824 Problem History of MRSA infection Z86.14 Active 650032 000 Problem COPD with exacerbation J44.1 Active 754517615 Problem Primary osteoarthritis of left knee M17.12 Acti ve 451884889087454 Problem Atypical angina I20.8 Active 726181083 Problem Anxiety F41.9 Active 88193350 Problem H/O methicillin resistant Staphylococcus aureus Z8 6.14 Active 111060868 Problem Gastroesophageal reflux disease with esophagitis K 21.0 Active 722438465 Problem Seasonal allergic rhinitis, unspecified trigger J3 0.2 Active 422956365 Problem Epidermal cyst of neck L72.0 Active 585812935 Problem Non-seasonal allergic rhinitis, unspecified trigger J30.89 Active 25512067 Problem Moderate persistent asthma with acute exacerbation J45.41 Active 055535700080326 Problem 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 Active 13704015 Problem Bilateral carpal tunnel syndrome G56.03 Active 77907684 Problem Dizziness R42 Active 365319903 Problem Iron deficiency E61.1 Active 05434236 ALLERGIES No Known Allergies ENCOUNTERS from 1972 to 2020-06-25 Encounter Location Date Provider Diagnosis [facility] [place] [address] Jun, Tash Navas IMMUNIZATIONS Vaccine Route Administration Date Status Influenza [...] Education Language: Question Answer Notes Languages spoken: Luxembour[place] Restoration: Question Answer Notes Restoration 21 Adventism Sexual Hx: Question Answer Notes Had sex [...] Notes Start Da te End Date Status Singulair 10 MG 1 tablet Orally Once a day for 30 Days Active Flonase Allergy Relief 50 MCG/ACT 1 spray in each nost ril Nasally Once a day for 30 Days Active Claritin 10 MG 1 tablet Orally Once a day for 30 day(s) Active Carafate 1 GM 1 tablet on an empty stomach Orally Twice a day Active Estradiol 1 MG 1 tablet Orally Once a day for 90 day(s) November, Active Neti Pot Sinus Wash 2300-700 MG as directed Nasally bid Active Fluoxetine HCl 10 MG TAKE 1 CAPSULE BY MOUTH EVERY DAY Oral for 30 Active Albuterol Sulfate HFA 108 (90 Base) MCG/ACT 2 puffs as needed Inhalation every 6 hrs for 30 Days Active PROzac 10 MG 1 capsule Orally Once a day for 30 Active Doxycycline Hyclate 100 MG 1 capsule Orally Twice a day for 7 da y(s) May, Not-Taking Protonix 40 MG 1 tablet Orally Once a day Active FLUoxetine HCl 10 MG 1 capsule Orally Once a day c 40mg for 30 d ay(s) Apr, Active Mupirocin 2 % 1 application Externally Three times a day Not-Taking AeroChamber Plus 1 as directed 1 as directed Active FLUoxetine HCl 40 MG 1 capsule Orally Once a day c 10mg for 30 day(s) Active Lisinopril 5 MG 1 tablet Orally Once a day for 30 day(s) Apr, Active Wellbutrin SR 200 MG 1 tablet in the morning Orally Once a day for 90 days Active Breo Ellipta 100-25 MCG/INH 1 puff Inhalation Once a day for 30 Days Active Baclofen 10 MG 1 tablet with food or milk O rally Three times a day for 30 day(s) Jan, Active Levothyroxine Sodium 150 MCG 1 tablet in the morning o n an empty stomach Orally Once a day for 30 day(s) Apr, Active PROCEDURES No Information RESULTS No Results REASON FOR VISIT Sinus infection, rash MEDICAL (GENERAL) HISTORY Type Description Date Medical History Asthma Medical History Hyperlipidemia Medical History Hypothyroiditis Medical History Obesity Medical History Menopausal Medical History Gerd Medical History Depression/Anxiety Medical History Insomnia Medical History MRI of R shoulder 07/02 c mi ld hypertrophic DJD of ACjoint, partial undersurface tear of supraspinatus tendon s retraction, poss. ligament sprain Medical History CT IAC s contrast L ear 11/2 017 c L Otitis externa, mild mastoiditis, [...] Information ASSESSMENTS No Information PLAN OF TREATMENT Next Appt Details Provider Name:Robina Mary Grace Acosta, 2020-0 09-08 03:00:00 PM, [address] [place], [address], Insurance Providers Payer Name Payer Address Payer Phone Insured Name Patient Relati onship to Insured Coverage Start Date Coverage End Date BCBS ANA [place] PPO [phone] [facility] [employer] [id number] JERRICA RICH self
--- OUTSIDE RECORDS SUMMARY | 2020-08-16 10:28 | CCD ---
Author Author [facility] Organization [facility] Address Unknown Phone Unavailable Care Team Providers Care Hydrodynamics Professor Name Role Phone HAROON REY MD Unavailable Unavailable HAROON REY MD Unavailable Unavailable HAROON REY MD Unavailable Unavailable HAROON REY MD Unavailable Unavailable HAROON REY MD Unavailable Unavailable HAROON REY MD Unavailable Unavailable HAROON REY MD Unavailable Unavailable HAROON REY MD Unavailable Unavailable HAROON REY MD Unavailable Unavailable Abrcaitlyn B Cyrus WARE Unavailable Unavailable Abrcaitlyn B Cyrus WARE Unavailable Unavailable Abrcaitlyn B Cyrus WARE Unavailable Unavailable Abrcaitlyn B Cyrus WARE Unavailable Unavailable Abrcaitlyn B Cyrus WARE Unavailable Unavailable Abrcaitlyn B Cyrus WARE Unavailable Unavailable Andressa B Cyrus WARE Unavailable Unavailable Andressa B Cyrus WARE Unavailable Unavailable Andressa B Cyrus WARE Unavailable Unavailable Andressa B Cyrus WARE Unavailable Unavailable Abriss, B Cyrus WARE Unavailable Unavailable Abriss, B Cyrus WARE Unavailable Unavailable Abriss, B Cyrus WARE Unavailable Unavailable Abriss, B Cyrus WARE Unavailable Unavailable Abriss, B Cyrus WARE Unavailable Unavailable Abriss, B Cyrus WARE Unavailable Unavailable Abriss, B Cyrus WARE Unavailable Unavailable Abriss, B Cyrus WARE Unavailable Unavailable Re-disclosure Warning The records that you are about to access may contain information from federally-assisted alcohol or drug abuse programs. If such information is present, then the following federally mandated warning applies: This information has been disclosed to you from records protected by federal confidentiality rules (42 CFR part 2). The federal rules prohibit you from making any further disclosure of this information unless further disclosure is expressly permitted by the written consent of the person to whom it pertains or as otherwise permitted by 42 CFR part 2. A general authorization for the release of medical or other information is NOT sufficient for this purpose. The Federal rules restrict any use of the information to criminally investigate or prosecute any alcohol or drug abuse patient.The records that you are about to access may contain highly sensitive health information, the redisclosure of which is protected by Article 27-F of the [facility] Public Health law. If you continue you may have access to information: Regarding HIV / AIDS; Provided by facilities licensed or operated by the [facility] Office of Mental Health; or Provided by the [facility] Office for People With Developmental Disabilities. If such information is present, then the following [facility] mandated warning applies: This information has been disclosed to you from confidential records which are protected by state law. State law prohibits you from making any further disclosure of this information without the specific written consent of the person to whom it pertains, or as otherwise permitted by law. Any unauthorized further disclosure in violation of state law may result in a fine or halfway sentence or both. A general authorization for the release of medical or other information is NOT sufficient authorization for further disc losure. Allergies and Adverse Reactions Type Description Substance Reaction Status Data Source(s ) Drug Class NO KNOWN ALLERGIES NO KNOWN ALLERGIES [facility] Family History Family Member Name Family Member Gender Family Member Status Date o f Status Description Data Source(s) Unknown Unknown Problem MEDENT ([facility]) Unknown Male Problem [facility] Unknown Problem [facility] ([facility] Unknown Unknown Problem MEDENT ([facility] Unknown Unknown Problem MEDENT ([facility] Unknown Unknown Problem MEDENT ([facility]) Unknown Unknown Problem MEDENT ([facility]) pgm,pgf Unknown Unknown Problem MEDENT ([facility]) Encounters Encounter Providers Location Date Indications Data Source(s ) [place] [address] [facility] [facility] [address] 07/10/2020 12:00:00 AM EST eCW1 ([facility]) Unknown [address] [facility] [place] [address] 06/26/2020 12:00:00 AM EST [facility]CW1 [facility]) Outpatient [address] [facility] [place] [address] 06/25/2020 12:00:00 AM EST eCW1 ([facility]) Unknown [address] [facility] [place] [address] 06/25/2020 12:00:00 AM EST eCW1 ([facility]) Outpatient [address] [facility] [place] [address] 06/02/2020 12:00:00 AM EST eCW1 ([facility]) Unknown [address] [facility] [place] [address] 06/02/2020 12:00:00 AM EST eCW1 ([facility]) Outpatient [address] [facility] [place] [address] 05/08/2020 12:00:00 AM EDT eCW1 ([facility]) Outpatient Attender: HAROON REY MD 03/14/2020 12:00:[address] [facility] [place] [address] [facility] [address] 02/06/2020 12:00:00 AM EDT eCW1 ([facility]) Outpatient Attender: Cyrus Singletary/Eliseo/Kong/Luzma wattl 12/18/2019 01:00:00 PM EDT MEDENT ([facility] [address] [address] 12/13/2019 12:00:00 AM EDT eCW1 ([facility] [address] [address] 11/30/2019 12:00:00 AM EDT eCW1 ([facility] [address] [address] 11/22/2019 12:00:00 AM EDT eCW1 ([facility] [address] [address] 11/21/2019 12:00:00 AM EDT eCW1 ([facility] [address] [address] 11/07/2019 12:00:00 AM EDT eCW1 ([facility]) [address] [address] 11/01/2019 12:00:00 AM EDT eCW1 ([facility]) [address] [address] 09/26/2019 12:00:00 AM EDT eCW1 ([facility]) [address] [address] 09/25/2019 12:00:00 AM EDT eCW1 ([facility] [address] [address] 09/10/2019 12:00:00 AM EST eCW1 ([facility] [address] [address] 09/10/2019 12:00:00 AM EST eCW1 ([facility]) Outpatient Attender: Cyrus Singletary/Eliseo/Kong/Luzma barnhart 09/07/2019 12:45:00 PM EST MEDENT ([facility] [place]) [address] [address] 08/31/2019 12:00:00 AM EST eCW1 ([facility]) [address] [address] 08/30/2019 12:00:00 AM EST eCW1 ([facility]) [address] [address] 08/30/2019 12:00:00 AM EST eCW1 ([facility]) [address] [address] 08/26/2019 12:00:00 AM EST eCW1 ([facility]) [address] [address] 08/24/2019 12:00:00 AM EST eCW1 ([facility]) [address] [address] 08/24/2019 12:00:00 AM EST eCW1 ([facility]) [address] [address] 08/21/2019 12:00:00 AM EST eCW1 ([facility]) [address] [address] 08/20/2019 12:00:00 AM EST eCW1 ([facility]) [address] [address] 08/19/2019 12:00:00 AM EST eCW1 [facility]) Outpatient 08/08/2019 01:07:00 PM EST [facility] [address] [address] 08/08/2019 12:00:00 AM EST eCW1 ([facility] [address] [address] 08/02/2019 12:00:00 AM EST eCW1 ([facility]) [facility] [address] [facility] [address] 07/31/2019 12:00:00 AM EST eCW1 ([facility]) Outpatient 07/25/2019 04:10:00 PM EST [facility] [address] [facility] [address] 07/19/2019 12:00:00 AM EST eCW1 ([facility]) [facility] [address] [facility] [address] 07/12/2019 12:00:00 AM EST eCW1 ([facility]) [facility] [address] [facility] [address] 07/09/2019 12:00:00 AM EST eCW1 ([facility]) [facility] [address] [facility] [address] 07/02/2019 12:00:00 AM EST eCW1 ([facility]) Immunizations Vaccine Date Status Description Data Source(s) influenza, recombinant, quadrIvalent,injectable, prese rvative free 05/08/2020 03:40:00 PM EDT completed eCW1 ([facility]) influenza, recombinant, quadrIvalent,injectable, prese rvative free 05/08/2020 03:40:00 PM EDT completed eCW1 ([facility]) influenza, recombinant, quadrIvalent,injectable, prese rvative free 05/08/2020 03:40:00 PM EDT completed eCW1 ([facility]) influenza, recombinant, quadrIvalent,injectable, prese rvative free 05/08/2020 03:40:00 PM EDT completed eCW1 ([facility]) influenza, recombinant, quadrIvalent,injectable, prese rvative free 05/08/2020 03:40:00 PM EDT completed eCW1 ([facility]) influenza, recombinant, quadrIvalent,injectable, prese rvative free 05/08/2020 03:40:00 PM EDT completed eCW1 ([facility]) influenza, recombinant, quadrIvalent,injectable, prese rvative free 05/08/2020 03:40:00 PM EDT completed eCW1 ([facility]) influenza, recombinant, quadrIvalent,injectable, prese rvative free 05/08/2020 03:40:00 PM EDT completed eCW1 ([facility]) Medications Medication Brand Name Start Date Product Form Dose Route Admi nistrative Instructions Pharmacy Instructions Status Indications Reaction Description Data Source(s) Augmentin 875-125 MG UNK 06/26/2020 12:00:00 AM EST 1.0 {tablet } active Augmentin 875-125 MG eCW1 ([facility]) Prednisone 20 MG Oral Tablet PredniSONE 20 MG PredniSONE 20 MG 06/26/2020 12:00:00 AM EST 1.0 {tablet} active Pr edniSONE 20 MG eCW1 ([facility]) Triamcinolone Acetonide 1 MG/ML Topical Cream Triamcin olone Acetonide 0.1 % Triamcinolone Acetonide 0.1 % 06/26/2020 12:00:00 AM EST active Triamcinolone Acetonide 0.1 % eCW1 ([facility]) Augmentin 875-125 MG UNK 06/26/2020 12:00:00 AM EST 1.0 {tablet } active Augmentin 875-125 MG eCW1 ([facility]) Prednisone 20 MG Oral Tablet PredniSONE 20 MG PredniSONE 20 MG 06/26/2020 12:00:00 AM EST 1.0 {tablet} active Pr edniSONE 20 MG eCW1 ([facility]) Triamcinolone Acetonide 1 MG/ML Topical Cream Triamcin olone Acetonide 0.1 % Triamcinolone Acetonide 0.1 % 06/26/2020 12:00:00 AM EST active Triamcinolone Acetonide 0.1 % eCW1 ([facility]) Triamcinolone Acetonide 1 MG/ML Topical Cream Triamcin olone Acetonide 0.1 % Triamcinolone Acetonide 0.1 % 06/26/2020 12:00:00 AM EST active Triamcinolone Acetonide 0.1 % eCW1 ([facility]) Erythromycin 0.005 MG/MG Ophthalmic Ointment Erythromy selene 5 MG/GM Erythromycin 5 MG/GM 06/26/2020 12:00:00 AM EST active Erythromycin 5 MG/GM eCW1 ([facility]) Augmentin 875-125 MG UNK 06/26/2020 12:00:00 AM EST 1.0 {tablet } active Augmentin 875-125 MG eCW1 ([facility]) Erythromycin 0.005 MG/MG Ophthalmic Ointment Erythromy selene 5 MG/GM Erythromycin 5 MG/GM 06/26/2020 12:00:00 AM EST active Erythromycin 5 MG/GM eCW1 ([facility]) Erythromycin 0.005 MG/MG Ophthalmic Ointment Erythromy selene 5 MG/GM Erythromycin 5 MG/GM 06/26/2020 12:00:00 AM EST active Erythromycin 5 MG/GM eCW1 ([facility]) Prednisone 20 MG Oral Tablet PredniSONE 20 MG PredniSONE 20 MG 06/26/2020 12:00:00 AM EST 1.0 {tablet} active Pr edniSONE 20 MG eCW1 ([facility]) doxycycline hyclate 100 MG Oral Capsule Doxycycline Hy clate 100 MG Doxycycline Hyclate 100 MG 06/02/2020 12:00:00 AM EST 1.0 {capsule} active Doxycycline Hyclate 100 MG eCW1 ([facility]) doxycycline hyclate 100 MG Oral Capsule Doxycycline Hy clate 100 MG Doxycycline Hyclate 100 MG 06/02/2020 12:00:00 AM EST 1.0 {capsule} suspended Doxycycline Hyclate 100 MG eCW1 ([facility]) doxycycline hyclate 100 MG Oral Capsule Doxycycline Hy clate 100 MG Doxycycline Hyclate 100 MG 06/02/2020 12:00:00 AM EST 1.0 {capsule} suspended Doxycycline Hyclate 100 MG eCW1 ([facility]) doxycycline hyclate 100 MG Oral Capsule Doxycycline Hy clate 100 MG Doxycycline Hyclate 100 MG 06/02/2020 12:00:00 AM EST 1.0 {capsule} active Doxycycline Hyclate 100 MG eCW1 ([facility]) doxycycline hyclate 100 MG Oral Capsule Doxycycline Hy clate 100 MG Doxycycline Hyclate 100 MG 06/02/2020 12:00:00 AM EST 1.0 {capsule} suspended Doxycycline Hyclate 100 MG eCW1 ([facility]) doxycycline hyclate 100 MG Oral Capsule Doxycycline Hy clate 100 MG Doxycycline Hyclate 100 MG 06/02/2020 12:00:00 AM EST 1.0 {capsule} suspended Doxycycline Hyclate 100 MG eCW1 ([facility]) Levothyroxine Sodium 0.15 MG Oral Tablet Levothyroxine Sodium 150 MCG Levothyroxine Sodium 150 MCG 05/12/2020 12:00:00 AM EDT active Levothyroxine Sodium 150 MCG eCW1 ([facility]) Levothyroxine Sodium 0.15 MG Oral Tablet Levothyroxine Sodium 150 MCG Levothyroxine Sodium 150 MCG 05/12/2020 12:00:00 AM EDT active Levothyroxine Sodium 150 MCG eCW1 ([facility]) Levothyroxine Sodium 0.15 MG Oral Tablet Levothyroxine Sodium 150 MCG Levothyroxine Sodium 150 MCG 05/12/2020 12:00:00 AM EDT active Levothyroxine Sodium 150 MCG eCW1 ([facility]) Levothyroxine Sodium 0.15 MG Oral Tablet Levothyroxine Sodium 150 MCG Levothyroxine Sodium 150 MCG 05/12/2020 12:00:00 AM EDT active Levothyroxine Sodium 150 MCG eCW1 ([facility]) Levothyroxine Sodium 0.15 MG Oral Tablet Levothyroxine Sodium 150 MCG Levothyroxine Sodium 150 MCG 05/12/2020 12:00:00 AM EDT active Levothyroxine Sodium 150 MCG eCW1 ([facility]) Levothyroxine Sodium 0.15 MG Oral Tablet Levothyroxine Sodium 150 MCG Levothyroxine Sodium 150 MCG 05/12/2020 12:00:00 AM EDT active Levothyroxine Sodium 150 MCG eCW1 ([facility]) Levothyroxine Sodium 0.15 MG Oral Tablet Levothyroxine Sodium 150 MCG Levothyroxine Sodium 150 MCG 05/12/2020 12:00:00 AM EDT active Levothyroxine Sodium 150 MCG eCW1 ([facility]) Levothyroxine Sodium 0.15 MG Oral Tablet Levothyroxine Sodium 150 MCG Levothyroxine Sodium 150 MCG 05/12/2020 12:00:00 AM EDT active Levothyroxine Sodium 150 MCG eCW1 ([facility]) Lisinopril 5 MG Oral Tablet Lisinopril 5 MG 05/08/2020 12:00:00 AM EDT 1.0 {tablet} active Lisinopril 5 MG eCW1 ([facility]) Lisinopril 5 MG Oral Tablet Lisinopril 5 MG 05/08/2020 12:00:00 AM EDT 1.0 {tablet} active Lisinopril 5 MG eCW1 ([facility]) Lisinopril 5 MG Oral Tablet Lisinopril 5 MG 05/08/2020 12:00:00 AM EDT 1.0 {tablet} active Lisinopril 5 MG eCW1 ([facility]) Fluoxetine 10 MG Oral Capsule FLUoxetine HCl 10 MG FLUoxetin e HCl 10 MG 05/08/2020 12:00:00 AM EDT 1.0 {capsule} active FLUoxetine HCl 10 MG eCW1 ([facility]) Fluoxetine 10 MG Oral Capsule FLUoxetine HCl 10 MG FLUoxetin e HCl 10 MG 05/08/2020 12:00:00 AM EDT 1.0 {capsule} active FLUoxetine HCl 10 MG eCW1 ([facility]) Fluoxetine 10 MG Oral Capsule FLUoxetine HCl 10 MG FLUoxetin e HCl 10 MG 05/08/2020 12:00:00 AM EDT 1.0 {capsule} active FLUoxetine HCl 10 MG eCW1 ([facility]) Fluoxetine 10 MG Oral Capsule FLUoxetine HCl 10 MG FLUoxetin e HCl 10 MG 05/08/2020 12:00:00 AM EDT 1.0 {capsule} active FLUoxetine HCl 10 MG eCW1 ([facility]) Lisinopril 5 MG Oral Tablet Lisinopril 5 MG 05/08/2020 12:00:00 AM EDT 1.0 {tablet} active Lisinopril 5 MG eCW1 ([facility]) Lisinopril 5 MG Oral Tablet Lisinopril 5 MG 05/08/2020 12:00:00 AM EDT 1.0 {tablet} active Lisinopril 5 MG eCW1 ([facility]) Lisinopril 5 MG Oral Tablet Lisinopril 5 MG 05/08/2020 12:00:00 AM EDT 1.0 {tablet} active Lisinopril 5 MG eCW1 ([facility]) Lisinopril 5 MG Oral Tablet Lisinopril 5 MG 05/08/2020 12:00:00 AM EDT 1.0 {tablet} active Lisinopril 5 MG eCW1 ([facility]) Fluoxetine 10 MG Oral Capsule FLUoxetine HCl 10 MG FLUoxetin e HCl 10 MG 05/08/2020 12:00:00 AM EDT 1.0 {capsule} active FLUoxetine HCl 10 MG eCW1 ([facility]) Lisinopril 5 MG Oral Tablet Lisinopril 5 MG 05/08/2020 12:00:00 AM EDT 1.0 {tablet} active Lisinopril 5 MG eCW1 ([facility]) Fluoxetine 10 MG Oral Capsule FLUoxetine HCl 10 MG FLUoxetin e HCl 10 MG 05/08/2020 12:00:00 AM EDT 1.0 {capsule} active FLUoxetine HCl 10 MG eCW1 ([facility]) Fluoxetine 10 MG Oral Capsule FLUoxetine HCl 10 MG FLUoxetin e HCl 10 MG 05/08/2020 12:00:00 AM EDT 1.0 {capsule} active FLUoxetine HCl 10 MG eCW1 ([facility]) Fluoxetine 10 MG Oral Capsule FLUoxetine HCl 10 MG FLUoxetin e HCl 10 MG 05/08/2020 12:00:00 AM EDT 1.0 {capsule} active FLUoxetine HCl 10 MG eCW1 ([facility]) 500 mg 03/25/2020 12:00:00 AM EDT tablet 20 TAKE ONE TABLET BY MOUTH TWICE A DAY FOR 10 DAYS TAKE ONE TABLET BY MOUTH TWICE A DAY FOR 10 DAYS SOLD: 03/27/2020 [facility] 20 mg 03/25/2020 12:00:00 AM EDT tablet 10 TAKE 2 TABLETS BY MOUTH ONCE DAILY FOR 5 DAYS TAKE 2 TABLETS BY MOUTH ONCE DAILY FOR 5 DAYS SOLD: 03/27/20 20 [facility] Baclofen 10 MG Oral Tablet Baclofen 10 MG 02/06/2020 12:00:00 AM ED T 1.0 {tablet_with_food_or_milk} active Baclo fen 10 MG eCW1 ([facility]) Baclofen 10 MG Oral Tablet Baclofen 10 MG 02/06/2020 12:00:00 AM ED T 1.0 {tablet_with_food_or_milk} active Baclo fen 10 MG eCW1 ([facility]) Baclofen 10 MG Oral Tablet Baclofen 10 MG 02/06/2020 12:00:00 AM ED T 1.0 {tablet_with_food_or_milk} active Baclo fen 10 MG eCW1 ([facility]) Baclofen 10 MG Oral Tablet Baclofen 10 MG 02/06/2020 12:00:00 AM ED T 1.0 {tablet_with_food_or_milk} active Baclo fen 10 MG eCW1 ([facility]) Baclofen 10 MG Oral Tablet Baclofen 10 MG 02/06/2020 12:00:00 AM ED T 1.0 {tablet_with_food_or_milk} active Baclo fen 10 MG eCW1 ([facility]) Baclofen 10 MG Oral Tablet Baclofen 10 MG 02/06/2020 12:00:00 AM ED T 1.0 {tablet_with_food_or_milk} active Baclo fen 10 MG eCW1 ([facility]) Baclofen 10 MG Oral Tablet Baclofen 10 MG 02/06/2020 12:00:00 AM ED T 1.0 {tablet_with_food_or_milk} active Baclo fen 10 MG eCW1 ([facility]) Baclofen 10 MG Oral Tablet Baclofen 10 MG 02/06/2020 12:00:00 AM ED T 1.0 {tablet_with_food_or_milk} active Baclo fen 10 MG eCW1 ([facility]) Baclofen 5 MG Oral Tablet Baclofen 5 MG 12/13/2019 12:00:00 AM EDT active 1 tablet with food or milk eCW1 ([facility]) Levothyroxine Sodium 0.175 MG Oral Tablet Levothyroxin e Sodium 175 MCG Levothyroxine Sodium 175 MCG 11/30/2019 12:00:00 AM EDT active 1 tablet every morning on an empty stomach eCW1 ([facility]) Estradiol 1 MG Oral Tablet Estradiol 1 MG 11/22/2019 12:00:00 AM EDT active 1 tablet eCW1 ([facility]) Estradiol 1 MG Oral Tablet Estradiol 1 MG 11/22/2019 12:00:00 AM ED T 1.0 {tablet} active Estradiol 1 MG eCW1 ([facility]) Estradiol 1 MG Oral Tablet Estradiol 1 MG 11/22/2019 12:00:00 AM ED T 1.0 {tablet} active Estradiol 1 MG eCW1 ([facility]) Estradiol 1 MG Oral Tablet Estradiol 1 MG 11/22/2019 12:00:00 AM ED T 1.0 {tablet} active Estradiol 1 MG eCW1 ([facility]) Estradiol 1 MG Oral Tablet Estradiol 1 MG 11/22/2019 12:00:00 AM ED T 1.0 {tablet} active Estradiol 1 MG eCW1 ([facility]) Estradiol 1 MG Oral Tablet Estradiol 1 MG 11/22/2019 12:00:00 AM ED T 1.0 {tablet} active Estradiol 1 MG eCW1 ([facility]) Estradiol 1 MG Oral Tablet Estradiol 1 MG 11/22/2019 12:00:00 AM ED T 1.0 {tablet} active Estradiol 1 MG eCW1 ([facility]) Estradiol 1 MG Oral Tablet Estradiol 1 MG 11/22/2019 12:00:00 AM ED T 1.0 {tablet} active Estradiol 1 MG eCW1 ([facility]) Estradiol 1 MG Oral Tablet Estradiol 1 MG 11/22/2019 12:00:00 AM ED T 1.0 {tablet} active Estradiol 1 MG eCW1 ([facility]) Baclofen 5 MG Oral Tablet Baclofen 5 MG 09/25/2019 12:00:00 AM EDT active 1 tablet with food or milk eCW1 ([facility]) Fluconazole 150 MG Oral Tablet [Diflucan] Diflucan 150 MG Di flucan 150 MG 09/10/2019 12:00:00 AM EST active 1 tablet eCW1 ([facility]) Advanced Probiotic - Advanced Probiotic - 09/10/2019 12:00:00 AM EST active as directed eCW1 ([facility]) Fluticasone Propionate Fluticasone Propionate 09/07/2019 12:00:[address] active MEDENT ([facility] ) chlorhexidine gluconate 40 MG/ML Medicat ed Liquid Soap [Hibiclens] Hibiclens 4 % Hibiclens 4 % 08/21/2019 12:00:00 AM EST act monserrat as directed c showers eCW1 ([facility]) 800-160 mg 08/18/2019 12:00:00 AM EST tablet 20 TAKE ONE TABLET BY MOUTH EVERY 12 HOURS TAKE ONE TABLET BY MOUTH EVERY 12 HOURS SOLD: 08/18/2019 [facility] 100 mg 08/17/2019 12:00:00 AM EST capsule 90 TAKE ONE CAPSULE BY MOUTH AT BEDTIME MAXIMUM DAILY DOSE = ONE TABLET TAKE ONE CAPSULE BY MOUTH AT BEDTIME MAXIMUM DAILY DOSE = ONE TABLET SOLD: 04/29/2020 [facility] 100 mg 08/17/2019 12:00:00 AM EST capsule 90 TAKE ONE CAPSULE BY MOUTH AT BEDTIME MAXIMUM DAILY DOSE = ONE TABLET TAKE ONE CAPSULE BY MOUTH AT BEDTIME MAXIMUM DAILY DOSE = ONE TABLET SOLD: 08/18/2019 [facility] 100 mg 08/17/2019 12:00:00 AM EST capsule 90 TAKE ONE CAPSULE BY MOUTH AT BEDTIME MAXIMUM DAILY DOSE = ONE TABLET TAKE ONE CAPSULE BY MOUTH AT BEDTIME MAXIMUM DAILY DOSE = ONE TABLET SOLD: 07/25/2020 [facility] 100 mg 08/17/2019 12:00:00 AM EST capsule 90 TAKE ONE CAPSULE BY MOUTH AT BEDTIME MAXIMUM DAILY DOSE = ONE TABLET TAKE ONE CAPSULE BY MOUTH AT BEDTIME MAXIMUM DAILY DOSE = ONE TABLET SOLD: 01/22/2020 [facility] Loratadine 10 MG Oral Tablet [Claritin] Claritin 10 MG Radha tin 10 MG 08/08/2019 12:00:00 AM EST active 1 table t eCW1 ([facility]) Loratadine 10 MG Oral Tablet [Claritin] Claritin 10 MG Radha tin 10 MG 08/08/2019 12:00:00 AM EST active 1 table t eCW1 ([facility]) Mupirocin 0.02 MG/MG Topical Ointment Mupirocin 2 % Mupiroci n 2 % 08/08/2019 12:00:00 AM EST active 1 applic ation eCW1 ([facility]) Mupirocin 0.02 MG/MG Topical Ointment Mupirocin 2 % Mupiroci n 2 % 08/08/2019 12:00:00 AM EST active 1 applic ation eCW1 ([facility]) Loratadine 10 MG Oral Tablet [Claritin] Claritin 10 MG Radha tin 10 MG 08/08/2019 12:00:00 AM EST active 1 table t eCW1 ([facility]) Loratadine 10 MG Oral Tablet [Claritin] Claritin 10 MG Radha tin 10 MG 08/08/2019 12:00:00 AM EST active 1 table t eCW1 ([facility]) Loratadine 10 MG Oral Tablet [Claritin] Claritin 10 MG Radha tin 10 MG 08/08/2019 12:00:00 AM EST active 1 table t eCW1 ([facility]) 20 mg 07/02/2019 12:00:00 AM EST tablet 10 TAKE TWO TABLETS BY MOUTH EVERY DAY FOR 5 DAYS TAKE TWO TABLETS BY MOUTH EVERY DAY FOR 5 DAYS SOLD: 019 [facility] 100 mg 07/02/2019 12:00:00 AM EST tablet 14 TAKE ONE TABLET BY MOUTH TWICE A DAY FOR 7 DAYS TAKE ONE TABLET BY MOUTH TWICE A DAY FOR 7 DAYS SOLD: 07/02/2019 [facility] Insurance Providers Payer name Policy type / Coverage type Policy ID Covered green party ID Covered green party's relationship to munoz Policy [employer] Plan Information [employer] [place]/307 [id number] SP [id number] [place]/[id number] SP [id number] [place]/[id number] SP [id number] [employer] B [id number] S [id number] [employer] H [id number] Self [id number] Medicaid [place] Med[place] Part B [id number] Self [id number] [employer] Health Maintenance Organization (HMO) [id number] Self [id number] [facility] [id number] Empl [id number] ANSI-Commercial [id number]-t06p-[id number] a9g3919u-n75t-6th6-2364-27596z3w368r ANSI-Commercial 3z12x8oy-005d-5g4f-8n04-po78447jq74a 7n34e5ra-905l-2e2c-9j53-ld40644mb82t [place] [place] PPO 302/307 [id number] SP [id number] [employer] [id number] [place] YND [id number] [employer] Ppo Health Maintenance Organization (HMO) [id number] Self [id number] ANSI-Commercial [id number]-g8hy-2m70-[id number] 67dp1lv7-b7dd-4z89-u674-52zns7t095o3 ANSI-Commercial [id number]-bc9m-869u-c607-456m58l4vz2a n709c910-ff1c-784d-o971-276j42k7my6e ANSI-Commercial 891kb830-8596-0243-ribj-38u0803rdmq4 [id number]-sskt-36n9881osem7 ANSI-Commercial 737mgo89-078j-4ur4-269a-57l99j37v95y 297fsr88-967a-7xo9-100e-67m02h80t63b ANSI-Commercial 26b7009n-u389-2425-5z15-t253542jq5q4 32x7023t-h205-3103-1y83-s973818hs3m2 ANSI-Commercial 9del9ku4-98e8-65qp-074q-kqk135h6k7u7 4qwq6ei0-52s2-73nn-107k-akr722i0e7i5 [employer] PI PI ANSI-Commercial [id number]-37ii-98d4-[id number] 1m1hw75e-38qy-89r2-p67x-[id number] ANSI-Commercial h6xuutv7-2276-53l5-gy05-f4e57584yi23 l2cvwfu9-0725-80y5-bj38-i1d79595lo36 ANSI-Commercial 69s74n6j-f3lx-53xh-r906-8v9ka84wj488 20f83k4l-e4rb-97id-a451-3m7eu62pk393 ANSI-Commercial 27vj7ymp-onac-32b8-34sk-5936e7qrh7j1 20iz1uja-vkgp-08d5-08aw-8302u8dhr8o8 ANSI-CAD Best [id number]-84cn-[id number] Blue Cross Blue Shield P [id number] SELF [id number] ANSI-CAD Best [id number]-7840-1m59-7v01-h97d9c6ge7a1 4722007r-8572-8d70-4g25-e57s4c9yk5v5 ANSI-CAD Best h2p51q02-9992-989v-6r28-311j254j883c z5m19x54-3091-339l-8u22-655l955n093z ANSI-CAD Best y346i42a-f15e-5e51-0m66-2826b9t7oke1 o284h88v-e84z-0v33-2y02-6500m3t2kcr7 ANSI-Commercial [id number]-lp17-63fv8ggp4673 6w975965-2037-8b8g-xv32-21ep2iwo7928 ANSI-Commercial 3tsqc9d1-7985-4132-9d0s-8a28e9c0g5y6 2nwgw9f8-9741-4844-5c1i-8k86f1m0d1y8 ANSI-Commercial 034s0h80-8n81-853b-13hf-33aws7y1o25y 368q1q46-0z37-517h-78jn-23vgm1f2o96t ANSI-Commercial 7k8n74p9-8d65-9cp5-z436-29o8857303uh 7q6o86h6-3d96-1dc7-e058-48n4627903qo ANSI-Commercial 04mya162-s5e4-69fa-7j7s-06s393782846 43pij784-j5q7-29gn-6y5k-13p952742635 ANSI-Commercial 687zu17c-pa19-63kl-713d-157s13q2867c 634lv87e-wi54-05uc-226a-327z27e8011c ANSI-Commercial 54a7e0r9-j108-1g06-ra36-33c8583xm3gn 55i7q9v9-a762-6b95-zd88-11c6283bo4rn ANSI-Commercial 51ec8x09-416y-5124-d5mg-b56vwp551mpa 40hj4e25-112c-6496-e4yc-i31ymx009zcp ANSI-Commercial 932ug2p9-44cu-0915-d020-74pzb980m3o7 114cg2d7-04jg-1479-k476-58tis012b0m9 ANSI-Commercial 14mh9v62-cv2r-17sz-b4sm-c171s47288sx 27lv2m06-rj5j-84go-c0tl-k139p38240uy ANSI-Commercial 49723ije-60u6-95e2-24gd-89q54x4f5890 29676ega-27q3-45r0-32ga-74l63w2z9108 ANSI-Commercial o161uo18-357o-22ig-ty9q-9n252ee4018r j778nx90-746z-33fr-wq0z-6j173vz9668z ANSI-Commercial 7744h259-x8kg-6r4h-6t78-192v831u5194 7539z954-w4fs-9h7f-4v83-362l211r1975 ANSI-Commercial 1erex1ie-1738-2994-5p89-d12wttfy863y 5xfmb3mu-2065-8800-3q93-y52rvtxo837c ANSI-Commercial 04t442gp-47h6-3f88-l33w-85n710x3b676 92k975ca-12y1-2k45-j36b-84q603a4v392 ANSI-Commercial 5402001t-w8x8-8503-5005-ohqg7mlo3vl4 3841841z-k3f8-9987-2500-rate8xyx7bw1 ANSI-Commercial 5cx0i067-2643-3ne0-078l-8376l632a360 7la9a987-8230-7th2-717z-1199r845g247 ANSI-Commercial jxe81590-7163-1u43-c977-h118tmz7l744 ghg72924-5099-1i02-s866-c342dba7b145 ANSI-Commercial v93t82x4-3d52-54c1-r308-u7qa169562k2 h91n73y2-9c22-15k0-c149-i5jd013297t9 ANSI-Commercial 52gskm25-i902-519k-2413-36u51u88627m 03uygu34-t193-579c-6920-88d75u53832r ANSI-Commercial 723y5j9g-93y6-07u3-j10x-01800p6m0d4s 432p3h4x-73y2-66x1-q93l-76981x7t7n4b ANSI-Commercial d78ut8i3-61l0-3f4c-8443-61gb98042480 a40ox0m2-06e7-1g5v-0064-75sg94741859 ANSI-Commercial 5kw13q55-7c49-0803-0398-f42a7478l398 1cg19y57-0i66-7494-8909-o64b4343d883 ANSI-Commercial c2501002-8727-0v1s-t6x2-83095331u867 a7455889-0779-7e2j-i9q1-65254798m762 ANSI-Commercial 2qb8g151-z64c-797s-q17e-3r9dw5x3p4cp 6at6b722-n93m-114q-f55n-6a1ge5n7z2gl [employer] [place] PPO 302/307 [id number] SP [id number] ANSI-Commercial pqv5p229-2fx8-8257-749g-82sb8990n8i2 vbn2s404-9wd4-6791-994a-79xj1345j1s1 ANSI-Commercial 73332527-3476-897o-sd84-l0u34wc4877z 10473788-0272-470j-fj15-z0h35sv5875f ANSI-Commercial 3lq2v15a-9c65-7638-e0l5-36949451rp3s 8yj5h51l-3b71-0500-p8w7-33161398nf7f ANSI-Commercial 4330k729-d1l7-3zi8-8xw3-q687vj1tod9a 5133v849-c0y0-0re0-9pg9-o210jh1xvy2y ANSI-Commercial 2839q44u-9304-0wj2-z101-2b39qp34o221 9657w96s-3111-1uh8-h704-4w00no84o735 ANSI-Commercial 88rqpvsj-2d20-06355a85-1874-358m-1440r1134m3a 54fzjbvz-8m94-26037k71-1955-949x-1290x7700g8e [employer] [place] PPO 302/307 [id number] SP [id number] [employer] Maintenance Organization (HMO) [id number] Self [id number] [employer] Organization (HMO) [id number] Self [id number] [employer] (HMO) [id number] Self [id number] [employer] Maintenance Organization (HMO) [id number] Self [id number] [employer] [place] PPO 302/307 [id number] SP [id number] BCBS/[employer] Medigap Part B [id number] Self [id number] [facility]() Workers Compensation [id number] Self [id number] BC[employer] Medigap Part B [id number] Self [id number] [facility]() Workers Compensation [id number] Self [id number] [facility] Commercial [id number] Self [id number] [employer] Commercial [id number] Self [id number] [employer] Health Maintenance Organization (HMO) 302 [id number] Self [id number] [facility] INSURANCE [facility] [id number] SP [id number] [facility] [id number] SP [id number] [facility] O [id number] S [id number] STATE INS [facility] W [id number] Empl [id number] [facility] Commercial Self BCBS/[employer] Commercial Self [facility] Commercial Self WORKERS COMPENSATION GENERIC W [id number] Self [id number] [employer] NO FAULT [id number] SP [id number] [employer] F[employer] NO FAULT [id number] SP [id number] [employer] O [id number] S [id number] [employer] Workers Compensation Self [facility] [id number] SP [id number] SELF PAY UNAVAILABLE SP UNAVAILA BLE SELF PAY SP UNAVAILABLE S UNAVAILA BLE [id number] Surgeries/Procedures Procedure Description Date Indications Data Source(s) Immunization: Flublok Quadrivalent (18 years & older) 0.5mL IM (Influenza) 05/08/2020 12:00:00 AM EDT eCW1 ([facility]) TeleMedicine Est. Pt. Level 4 11/07/2019 12:00:00 AM E DT eCW1 ([facility]) Social History Code Duration Value Status Description Data Source(s ) Smoking 06/25/2020 12:00:00 AM EST Never Smoker completed Never S moker eCW1 ([facility]) Smoking 06/25/2020 12:00:00 AM EST Never Smoker completed Never S moker eCW1 ([facility]) Smoking 06/25/2020 12:00:00 AM EST Never Smoker completed Never S moker eCW1 ([facility]) Smoking 06/25/2020 12:00:00 AM EST Never Smoker completed Never S moker eCW1 ([facility]) Smoking 06/02/2020 12:00:00 AM EST Never Smoker completed Never S moker eCW1 ([facility]) Smoking 06/02/2020 12:00:00 AM EST Never Smoker completed Never S moker eCW1 ([facility]) Smoking 05/08/2020 12:00:00 AM EDT Never Smoker completed Never S moker eCW1 ([facility]) Smoking 05/08/2020 12:00:00 AM EDT Never Smoker completed Never S moker eCW1 ([facility]) Smoking 03/03/2020 12:00:00 AM EDT Non Smoker completed Non Smoke r MEDENT ([facility], ) Vital Signs ID Date Data Source UNK Name Value Range Interpretation Code Description Data Source(s) Diastolic blood pressure 72 mm[Hg] 72 mm[Hg] eCW1 ([facility]) Systolic blood pressure 124 mm[Hg] 124 mm[Hg] e CW1 ([facility]) Body temperature 98.4 [degF] 98.4 [degF] eCW1 ( [facility]) Respiratory rate 18 /min 18 /min eCW1 ([facility]) Heart rate 88 /min 88 /min eCW1 ([facility]) Body mass index (BMI) [Ratio] 45.17 kg/m2 45.17 kg/m2 W1 ([facility]) Body height 62 [in_i] 62 [in_i] eCW1 ([facility]) Body weight 247 [lb_av] 247 [lb_av] eCW1 ([facility]) Diastolic blood pressure 70 mm[Hg] 70 mm[Hg] eCW1 ([facility]) Systolic blood pressure 110 mm[Hg] 110 mm[Hg] e CW1 ([facility]) Body temperature 97.2 [degF] 97.2 [degF] eCW1 ( [facility]) Respiratory rate 18 /min 18 /min eCW1 ([facility]) Heart rate 110 /min 110 /min eCW1 ([facility]) Body mass index (BMI) [Ratio] 44.81 kg/m2 44.81 kg/m2 eCW1 ([facility]) Body height 62 [in_i] 62 [in_i] eCW1 ([facility]) Body weight 245 [lb_av] 245 [lb_av] eCW1 ([facility]) Diastolic blood pressure 80 mm[Hg] 80 mm[Hg] eCW1 ([facility]) Systolic blood pressure 118 mm[Hg] 118 mm[Hg] e CW1 ([facility]) Body temperature 97.4 [degF] 97.4 [degF] eCW1 ( [facility]) Respiratory rate 18 /min 18 /min eCW1 ([facility]) Heart rate 103 /min 103 /min eCW1 ([facility]) Body mass index (BMI) [Ratio] 45.83 kg/m2 45.83 kg/m2 W1 ([facility]) Body height 62 [in_i] 62 [in_i] eCW1 ([facility]) Body weight 250.6 [lb_av] 250.6 [lb_av] eCW1 ([facility]) Body weight 112.663 kg 112.663 kg MEDENT ([facility], ) Body mass index (BMI) [Ratio] 46.9 kg/m2 46.9 k g/m2 MEDENT ([facility], ) Body weight 248.38 [lb_av] 248.38 [lb_av] MEDEN T ([facility], ) Body height 61 [in_i] 61 [in_i] MEDENT ([facility], ) 5'1" Body temperature 98.6 [degF] 98.6 [degF] MEDENT ([facility], ) Oxygen saturation in Arterial blood by Pulse oximetry 98 % 98 % [facility] ([facility], ) Heart rate 71 /min 71 /min [facility] ([facility]) Diastolic blood pressure 78 mm[Hg] 78 mm[Hg] [facility]) Systolic blood pressure 126 mm[Hg] 126 mm[Hg] M EDENT ([facility]) Diastolic blood pressure 84 mm[Hg] 84 mm[Hg] eCW1 ([facility]) Systolic blood pressure 122 mm[Hg] 122 mm[Hg] e CW1 ([facility]) Body temperature 97.9 [degF] 97.9 [degF] eCW1 ( [facility]) Respiratory rate 16 /min 16 /min eCW1 ([facility]) Heart rate 85 /min 85 /min eCW1 ([facility]) Body mass index (BMI) [Ratio] 46.78 kg/m2 46.78 kg/m2 eCW1 ([facility]) Body height 62 [in_i] 62 [in_i] eCW1 ([facility]) Body weight 255.8 [lb_av] 255.8 [lb_av] eCW1 ([facility]) Body weight 107.050 kg 107.050 kg [facility] ([facility]) Body mass index (BMI) [Ratio] 44.6 kg/m2 44.6 k g/m2 [facility] ([facility]) Body weight 236.00 [lb_av] 236.00 [lb_av] MEDEN T ([facility]) Body height 61 [in_i] 61 [in_i] [facility] ([facility]) 5'1" Body height 62 [in_us] 62 [in_us] eCW1 ([facility]) Body weight Measured 247.6 [lb_av] 247.6 [lb_av ] eCW1 ([facility]) Diastolic blood pressure 76 mm[Hg] 76 mm[Hg] eCW1 ([facility]) Systolic blood pressure 116 mm[Hg] 116 mm[Hg] e CW1 ([facility]) Body temperature 974 [degF] 974 [degF] eCW1 ([facility]) Respiratory rate 17 /min 17 /min eCW1 ([facility]) Heart rate 84 /min 84 /min eCW1 ([facility]) Body mass index (BMI) [Ratio] 45.28 kg/m2 45.28 kg/m2 eCW1 ([facility]) Diastolic blood pressure 68 mm[Hg] 68 mm[Hg] eCW1 ([facility]) Systolic blood pressure 114 mm[Hg] 114 mm[Hg] e CW1 ([facility]) Body temperature 98.4 [degF] 98.4 [degF] eCW1 ( [facility]) Respiratory rate 18 /min 18 /min eCW1 ([facility]) Heart rate 88 /min 88 /min eCW1 ([facility]) Body mass index (BMI) [Ratio] 44.92 kg/m2 44.92 kg/m2 W1 ([facility]) Body height 62 [in_us] 62 [in_us] eCW1 ([facility]) Body weight Measured 245.6 [lb_av] 245.6 [lb_av ] eCW1 ([facility]) Body weight 107.050 kg 107.050 kg [facility] ([facility], ) Body mass index (BMI) [Ratio] 44.6 kg/m2 44.6 k g/m2 MEDENT ([facility], ) Body weight 236.00 [lb_av] 236.00 [lb_av] MEDEN T ([facility], ) Body height 61 [in_i] 61 [in_i] MEDENT ([facility], ) 5'1" Diastolic blood pressure 74 mm[Hg] 74 mm[Hg] eCW1 ([facility]) Systolic blood pressure 112 mm[Hg] 112 mm[Hg] e CW1 ([facility]) Body temperature 97.0 [degF] 97.0 [degF] eCW1 ( [facility]) Respiratory rate 20 /min 20 /min eCW1 ([facility]) Heart rate 92 /min 92 /min eCW1 ([facility]) Body mass index (BMI) [Ratio] 44.07 kg/m2 44.07 kg/m2 eCW1 ([facility]) Body height 62 [in_us] 62 [in_us] eCW1 ([facility]) Body weight Measured 241 [lb_av] 241 [lb_av] eC W1 ([facility]) Systolic blood pressure 114 mm[Hg] 114 mm[Hg] e CW1 ([facility]) Body temperature 97.3 [degF] 97.3 [degF] eCW1 ( [facility]) Respiratory rate 18 /min 18 /min eCW1 ([facility]) Heart rate 86 /min 86 /min eCW1 ([facility]) Body mass index (BMI) [Ratio] 44.48 kg/m2 44.48 kg/m2 eCW1 ([facility]) Body height 62 [in_us] 62 [in_us] eCW1 ([facility]) Body weight Measured 243.2 [lb_av] 243.2 [lb_av ] eCW1 ([facility]) Diastolic blood pressure 64 mm[Hg] 64 mm[Hg] eCW1 ([facility]) Diastolic blood pressure 76 mm[Hg] 76 mm[Hg] eCW1 ([facility]) Systolic blood pressure 116 mm[Hg] 116 mm[Hg] e CW1 ([facility]) Body temperature 98.3 [degF] 98.3 [degF] eCW1 ( [facility]) Respiratory rate 17 /min 17 /min eCW1 ([facility]) Heart rate 76 /min 76 /min eCW1 ([facility]) Body mass index (BMI) [Ratio] 44.00 kg/m2 44.00 kg/m2 eCW1 ([facility]) Body height 62 [in_us] 62 [in_us] eCW1 ([facility]) Body weight Measured 240.6 [lb_av] 240.6 [lb_av ] eCW1 ([facility]) Patient Treatment Plan of Care Planned Activity Planned Date Details Description Data Source (s) Erythromycin 0.005 MG/MG Ophthalmic Ointment 06/26/2020 12:00:00 AM EST eCW1 ([facility]) Prednisone 20 MG Oral Tablet 06/26/2020 12:00:00 AM EST eCW1 ([facility]) Triamcinolone Acetonide 1 MG/ML Topical Cream 06/26/2020 12:00:00 A M EST eCW1 ([facility]) Augmentin 875-125 MG 06/26/2020 12:00:00 AM EST eCW1 ([facility]) Erythromycin 0.005 MG/MG Ophthalmic Ointment 06/26/2020 12:00:00 AM EST eCW1 ([facility]) Triamcinolone Acetonide 1 MG/ML Topical Cream 06/26/2020 12:00:00 A M EST eCW1 ([facility]) Prednisone 20 MG Oral Tablet 06/26/2020 12:00:00 AM EST eCW1 ([facility]) Augmentin 875-125 MG 06/26/2020 12:00:00 AM EST eCW1 ([facility]) Erythromycin 0.005 MG/MG Ophthalmic Ointment 06/26/2020 12:00:00 AM EST eCW1 ([facility]) Triamcinolone Acetonide 1 MG/ML Topical Cream 06/26/2020 12:00:00 A M EST eCW1 ([facility]) Prednisone 20 MG Oral Tablet 06/26/2020 12:00:00 AM EST eCW1 ([facility]) Augmentin 875-125 MG 06/26/2020 12:00:00 AM EST eCW1 ([facility]) doxycycline hyclate 100 MG Oral Capsule 06/02/2020 12:00:00 AM EST eCW1 ([facility]) doxycycline hyclate 100 MG Oral Capsule 06/02/2020 12:00:00 AM EST eCW1 ([facility]) Levothyroxine Sodium 0.15 MG Oral Tablet 05/12/2020 12:00:00 AM EDT eCW1 ([facility]) Levothyroxine Sodium 0.15 MG Oral Tablet 05/12/2020 12:00:00 AM EDT eCW1 ([facility]) Levothyroxine Sodium 0.15 MG Oral Tablet 05/12/2020 12:00:00 AM EDT eCW1 ([facility]) Lisinopril 5 MG Oral Tablet 05/08/2020 12:00:00 AM EDT eCW1 ([facility]) Lisinopril 5 MG Oral Tablet 05/08/2020 12:00:00 AM EDT eCW1 ([facility]) Fluoxetine 10 MG Oral Capsule 05/08/2020 12:00:00 AM EDT eCW1 ([facility]) Lisinopril 5 MG Oral Tablet 05/08/2020 12:00:00 AM EDT eCW1 ([facility]) Fluoxetine 10 MG Oral Capsule 05/08/2020 12:00:00 AM EDT eCW1 ([facility]) Baclofen 5 MG Oral Tablet 12/13/2019 12:00:00 AM EDT eCW1 ([facility]) Levothyroxine Sodium 0.175 MG Oral Tablet 11/30/2019 12:00:00 AM ED T eCW1 ([facility]) Estradiol 1 MG Oral Tablet 11/22/2019 12:00:00 AM EDT eCW1 ([facility]) Baclofen 5 MG Oral Tablet 09/25/2019 12:00:00 AM EDT eCW1 ([facility]) Fluconazole 150 MG Oral Tablet [Diflucan] 09/10/2019 12:00:00 AM ES T eCW1 ([facility]) Advanced Probiotic - 09/10/2019 12:00:00 AM EST eCW1 ([facility]) chlorhexidine gluconate 40 MG/ML Medicated Liquid Soap [Hibiclens] 08/21/2019 12:00:00 AM EST eCW1 ([facility]) Loratadine 10 MG Oral Tablet [Claritin] 08/08/2019 12:00:00 AM EST eCW1 ([facility]) Mupirocin 0.02 MG/MG Topical Ointment 08/08/2019 12:00:00 AM EST eCW1 ([facility]) Mupirocin 0.02 MG/MG Topical Ointment 08/08/2019 12:00:00 AM EST eCW1 ([facility]) Loratadine 10 MG Oral Tablet [Claritin] 08/08/2019 12:00:00 AM EST eCW1 ([facility])
--- OUTSIDE RECORDS SUMMARY | 2020-08-16 10:28 | CCD ---
Author Author [facility] Organization [facility] Address Unknown Phone Unavailable Care Team Providers Care Acute Care Nursing Assistant Name Role Phone Tash Navas Unavailable PROBLEMS Type Condition ICD9-CM Code BEQ42-XI Code Onset Dates Condition S tatus SNOMED Code Notes Problem Acquired hypothyroidism E03.9 Active 85980294 2 Problem Essential hypertension I10 Active 90648984 Problem Body mass index (BMI) of 40.0-44.9 in adult Z68.41 Active 834779406 Problem Obesity, unspecified E66.9 Active 75457527752 104 Problem CHRISTINA (obstructive sleep apnea) G47.33 Active 78 491147 Problem Hypomagnesemia E83.42 Active 281099469 Problem Allergic rhinitis J30.9 Active 75219095 Problem History of MRSA infection Z86.14 Active 835928 000 Problem COPD with exacerbation J44.1 Active 046569898 Problem Primary osteoarthritis of left knee M17.12 Acti ve 778324537813108 Problem Atypical angina I20.8 Active 810989662 Problem Anxiety F41.9 Active 28184696 Problem H/O methicillin resistant Staphylococcus aureus Z8 6.14 Active 611624830 Problem Gastroesophageal reflux disease with esophagitis K 21.0 Active 921145133 Problem Seasonal allergic rhinitis, unspecified trigger J3 0.2 Active 019906248 Problem Epidermal cyst of neck L72.0 Active 961048923 Problem Non-seasonal allergic rhinitis, unspecified trigger J30.89 Active 69966829 Problem Moderate persistent asthma with acute exacerbation J45.41 Active 716936467431184 Problem 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 Active 27056458 Problem Bilateral carpal tunnel syndrome G56.03 Active 97150478 Problem Dizziness R42 Active 526993529 Problem Iron deficiency E61.1 Active 94883321 ALLERGIES No Known Allergies ENCOUNTERS from 1972 to 2020-06-05 Encounter Location Date Provider Diagnosis [facility] [address] [place] [address] May, Tash Navas Acute non-recurrent sinusitis, unspecifi ed location J01.90 IMMUNIZATIONS Vaccine Route Administration Date Status Influenza [...] Education Language: Question Answer Notes Languages spoken: German [facility]: Question Answer Notes [employer] Sexual Hx: Question Answer Notes Had sex [...] REASON FOR REFERRAL No Information VITAL SIGNS Weight 245 lbs May, Height 62 in May, BMI 44.81 kg/m2 May, Heart Rate 110 /min May, Respiratory Rate 18 /min May, Temperature 97.2 degrees Fahrenheit May, Oximetry 97 May, Blood pressure systolic 110 mm Hg May, Blood pressure diastolic 70 mm Hg May, MEDICATIONS Medication SIG (Take, Route, Frequency, Duration) Notes Start Da te End Date Status FLUoxetine HCl 10 MG 1 capsule Orally Once a day c 40mg for 30 d ay(s) Apr, Active Doxycycline Hyclate 100 MG 1 capsule Orally Twice a day for 7 da y(s) May, Active AeroChamber Plus 1 as directed 1 as directed Active Claritin 10 MG 1 tablet Orally Once a day for 30 day(s) Active Breo Ellipta 100-25 MCG/INH 1 puff Inhalation Once a day for 30 Days Active Flonase Allergy Relief 50 MCG/ACT 1 spray in each nost ril Nasally Once a day for 30 Days Active Levothyroxine Sodium 150 MCG 1 tablet in the morning o n an empty stomach Orally Once a day for 30 day(s) Apr, Active Estradiol 1 MG 1 tablet Orally Once a day for 90 day(s) November, Active Singulair 10 MG 1 tablet Orally Once a day for 30 Days Active Albuterol Sulfate HFA 108 (90 Base) MCG/ACT 2 puffs as needed Inhalation every 6 hrs for 30 Days Active Carafate 1 GM 1 tablet on an empty stomach Orally Twice a day Active Protonix 40 MG 1 tablet Orally Once a day Active Baclofen 10 MG 1 tablet with food or milk O rally Three times a day for 30 day(s) Jan, Active Mupirocin 2 % 1 application Externally Three times a day Not-Taking Fluoxetine HCl 10 MG TAKE 1 CAPSULE BY MOUTH EVERY DAY Oral for 30 Active FLUoxetine HCl 40 MG 1 capsule Orally Once a day c 10mg for 30 day(s) Active PROzac 10 MG 1 capsule Orally Once a day for 30 Active Neti Pot Sinus Wash 2300-700 MG as directed Nasally bid Active Wellbutrin SR 200 MG 1 tablet in the morning Orally Once a day for 90 days Active Lisinopril 5 MG 1 tablet Orally Once a day for 30 day(s) 2 2 Apr, 2020 Active PROCEDURES No Information RESULTS No Results REASON FOR VISIT sinus sx MEDICAL (GENERAL) HISTORY Type Description Date Medical [...] Notes Treatment Notes Treatm ent Clinical Notes May, Acute non-recurrent sinusiti s, unspecified location (ICD-10 - J01.90) Will treat with Doxy Rest, fluids, f/u if sxs worsen/persist PLAN OF TREATMENT Medication Medication Name Sig Start Date Stop Date PROzac 10 MG 1 capsule Orally Once a day for 30 Doxycycline Hyclate 100 MG 1 capsule Orally Twice a day for 7 day(s) May, Treatment Notes Assessment Notes Clinical Notes Acute non-recurrent sinusitis, unspecified location Wi treat with DoxyRest, fluids, f/u if sxs worsen/persist Next Appt Details Provider Name:Robina Mary Grace Acosta, 09-08 03:00:00 PM, [address] [place], [address], Insurance Providers Payer Name Payer Address Payer Phone Insured Name Patient Relati onship to Insured Coverage Start Date Coverage End Date [facility] [phone] [facility] [employer] [id number] [address] self
--- OUTSIDE RECORDS SUMMARY | 2020-08-16 10:28 | CCD ---
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 Name Role Phone Tash Navas Unavailable PROBLEMS Type Condition ICD9-CM Code PWF60-BP Code Onset Dates Condition S tatus SNOMED Code Notes Problem Acquired hypothyroidism E03.9 Active 47238062 2 Problem Essential hypertension I10 Active 90800671 Problem Body mass index (BMI) of 40.0-44.9 in adult Z68.41 Active 975037440 Problem Obesity, unspecified E66.9 Active 91949298213 104 Problem CHRISTINA (obstructive sleep apnea) G47.33 Active 78 178751 Problem Hypomagnesemia E83.42 Active 564273600 Problem Allergic rhinitis J30.9 Active 29939656 Problem History of MRSA infection Z86.14 Active 161518 000 Problem COPD with exacerbation J44.1 Active 155224488 Problem Primary osteoarthritis of left knee M17.12 Acti ve 416992960299796 Problem Atypical angina I20.8 Active 566578456 Problem Anxiety F41.9 Active 52408389 Problem H/O methicillin resistant Staphylococcus aureus Z8 6.14 Active 750758664 Problem Gastroesophageal reflux disease with esophagitis K 21.0 Active 067534367 Problem Seasonal allergic rhinitis, unspecified trigger J3 0.2 Active 486125610 Problem Epidermal cyst of neck L72.0 Active 593581824 Problem Non-seasonal allergic rhinitis, unspecified trigger J30.89 Active 11734879 Problem Moderate persistent asthma with acute exacerbation J45.41 Active 630752384612314 Problem 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 Active 79771307 Problem Bilateral carpal tunnel syndrome G56.03 Active 13849434 Problem Dizziness R42 Active 681710771 Problem Iron deficiency E61.1 Active 40613313 ALLERGIES No Known Allergies ENCOUNTERS from 1972 to 2020-06-02 Encounter Location Date Provider Diagnosis [facility] [place] [address] May, Tash Navas IMMUNIZATIONS Vaccine Route Administration Date [...] Education Language: Question Answer Notes Languages spoken: [place] Islam: Question Answer Notes Islam 21 Confucianist Sexual Hx: Question Answer Notes Had sex [...] day c 10mg for 30 day(s) Active Neti Pot Sinus Wash 2300-700 MG as directed Nasally bid Active Wellbutrin SR 200 MG 1 tablet in the morning Orally Once a day for 90 days Active Lisinopril 5 MG 1 tablet Orally Once a day for 30 day(s) 2 Apr, Active PROCEDURES No Information RESULTS No [...] Medication Name Sig Start Date Stop Date Doxycycline Hyclate 100 MG 1 capsule Orally Twice a day for 7 day(s) May, Next Appt Details Provider Name:Robina Acosta, 2020-0 09-08 03:00:00 PM, [address] [place] [address], [phone], Insurance Providers Payer Name Payer Address Payer Phone Insured Name Patient Relati onship to Insured Coverage Start Date Coverage End Date BCBS ANA [place] PPO [phone] [facility] [place]ILITY [place] [id number] JERRICA RICH
--- OUTSIDE RECORDS SUMMARY | 2020-08-16 10:58 | CCD ---
Author Author [facility] Organization [facility] Address Unknown Phone Unavailable Care Team Providers Care Aviation Project Manager Name Role Phone HAROON REY MD Unavailable [...] is protected by Article 27-F of the [facility] Public Health law. If you continue you may have access to information: Regarding HIV / AIDS; Provided by facilities licensed or operated by the [facility] Office of Mental Health; or Provided by the [facility] Office for People With Developmental Disabilities. If such information is present, then the following [facility] mandated warning applies: This information has [...] law may result in a fine or [place] health care facility sentence or both. A general authorization for the release of medical or other information is NOT sufficient authorization for further disc losure. Allergies and Adverse Reactions Type Description Substance Reaction Status Data Source(s ) Drug Class NO KNOWN ALLERGIES NO KNOWN ALLERGIES [facility] Family History Family Member Name Family Member Gender Family Member Status Date o f Status Description Data Source(s) Unknown Unknown Problem MEDENT ([facility]) Unknown Male Problem [facility] ( [facility] Unknown Unknown Problem [...] Date Indications Data Source(s ) Unknown [address] [facility] [address] 07/10/2020 12:00:00 AM EST eCW1 ([facility]) Unknown [address] [facility] [place] [address] 06/26/2020 12:00:00 AM EST eCW1 ([facility]) Outpatient [address] [facility] [place] [address] 06/25/2020 12:00:00 AM EST eCW1 ([facility]) Unknown [address] [facility] [place] [address] 06/25/2020 12:00:00 AM EST eCW1 ([facility]) Outpatient [address] [facility] [place] [address] 06/02/2020 12:00:00 AM EST eCW1 ([facility]) Unknown [address] [facility] [place] [address] 06/02/2020 12:00:00 AM EST eCW1 ([facility]) Outpatient [address] [facility] [facility] [place] [address] 05/08/2020 12:00:00 AM EDT eCW1 ([facility]) Outpatient Attender: HAROON REY MD 03/14/2020 12:00:00 AM [facility] Outpatient [address] [facility] [address] 02/06/2020 12:00:00 AM EDT eCW1 ([facility]) Outpatient Attender: Cyrus Singletary/Eliseo/Kong/Luzma wattl 12/18/2019 01:00:00 PM EDT MEDENT ([facility]) [address] [address] 12/13/2019 12:00:00 AM EDT eCW1 ([facility]) [address] [address] 11/30/2019 12:00:00 AM EDT eCW1 ([facility] [address] [address] 11/22/2019 12:00:00 AM EDT eCW1 ([facility]) [address] [address] 11/21/2019 12:00:00 AM EDT eCW1 ([facility] [address] [address] 11/07/2019 12:00:00 AM EDT eCW1 ([facility]) [address] [address] 11/01/2019 12:00:00 AM EDT eCW1 ([facility]) [address] [address] 09/26/2019 12:00:00 AM EDT eCW1 ([facility]) [address] [address] 09/25/2019 12:00:00 AM EDT eCW1 ([facility] [address] [address] 09/10/2019 12:00:00 AM EST eCW1 ([facility]) [address] [address] 09/10/2019 12:00:00 AM EST eCW1 ([facility]) Outpatient Attender: Cyrus Sinlgetary/Eliseo/Kong/Luzma barnhart 09/07/2019 12:45:00 PM EST MEDENT ([facility] [address] [address] 08/31/2019 12:00:00 AM EST eCW1 ([facility]) [address] [address] 08/30/2019 12:00:00 AM EST eCW1 ([facility]) [address] [address] 08/30/2019 12:00:00 AM EST eCW1 ([facility]) [address] [address] 08/26/2019 12:00:00 AM EST eCW1 ([facility]) [address] [address] 08/24/2019 12:00:00 AM EST eCW1 ([facility]) [address] [address] 08/24/2019 12:00:00 AM EST eCW1 ([facility]) [address] [address] 08/21/2019 12:00:00 AM EST eCW1 ([facility]) [address] [address] 08/20/2019 12:00:00 AM EST eCW1 ([facility]) [address] [address] 08/19/2019 12:00:00 AM EST eCW1 [facility] [place] Outpatient 08/08/2019 01:07:00 PM EST [facility] [address] [address] 08/08/2019 12:00:00 AM EST eCW1 ([facility] [place] [address] [address] 08/02/2019 12:00:00 AM EST eCW1 ([facility]) [facility] [address] [address] 07/31/2019 12:00:00 AM EST eCW1 ([facility]) Outpatient 07/25/2019 04:10:00 PM EST [facility] [address] [facility] [address] 07/19/2019 12:00:00 AM EST eCW1 ([facility]) [facility] [address] [facility] [facility] [address] 07/12/2019 12:00:00 AM EST eCW1 ([facility]) [facility] [address] [facility] [facility] [address] 07/09/2019 12:00:00 AM EST eCW1 ([facility]) [facility] [address] [facility] [address] 07/02/2019 12:00:00 AM EST eCW1 ([facility]) Immunizations Vaccine Date Status Description Data Source(s) influenza, recombinant, quadrIvalent,injectable, prese rvative free 05/08/2020 03:40:00 PM EDT completed eCW1 ([facility]) influenza, recombinant, quadrIvalent,injectable, prese rvative free 05/08/2020 03:40:00 PM EDT completed eCW1 ([facility]) influenza, recombinant, quadrIvalent,injectable, prese rvative free 05/08/2020 03:40:00 PM EDT completed eCW1 ([facility]) influenza, recombinant, quadrIvalent,injectable, prese rvative free 05/08/2020 03:40:00 PM EDT completed eCW1 ([facility]) influenza, recombinant, quadrIvalent,injectable, prese rvative free 05/08/2020 03:40:00 PM EDT completed eCW1 ([facility]) influenza, recombinant, quadrIvalent,injectable, prese rvative free 05/08/2020 03:40:00 PM EDT completed eCW1 ([facility]) influenza, recombinant, quadrIvalent,injectable, prese rvative free 05/08/2020 03:40:00 PM EDT completed eCW1 ([facility]) influenza, recombinant, quadrIvalent,injectable, prese rvative free 05/08/2020 03:40:00 PM EDT completed eCW1 ([facility]) Medications Medication Brand Name Start Date Product Form Dose Route Admi nistrative Instructions Pharmacy Instructions Status Indications Reaction Description Data Source(s) Augmentin 875-125 MG UNK 06/26/2020 12:00:00 AM EST 1.0 {tablet } active Augmentin 875-125 MG eCW1 ([facility] Prednisone 20 MG Oral Tablet PredniSONE 20 MG PredniSONE 20 MG 06/26/2020 12:00:00 AM EST 1.0 {tablet} active Pr edniSONE 20 MG eCW1 ([facility]) Triamcinolone Acetonide 1 MG/ML Topical Cream Triamcin olone Acetonide 0.1 % Triamcinolone Acetonide 0.1 % 06/26/2020 12:00:00 AM EST active Triamcinolone Acetonide 0.1 % eCW1 ([facility]) Augmentin 875-125 MG UNK 06/26/2020 12:00:00 AM EST 1.0 {tablet } active Augmentin 875-125 MG eCW1 ([facility]) Prednisone 20 MG Oral Tablet PredniSONE 20 MG PredniSONE 20 MG 06/26/2020 12:00:00 AM EST 1.0 {tablet} active Pr edniSONE 20 MG eCW1 ([facility]) Triamcinolone Acetonide 1 MG/ML Topical Cream Triamcin olone Acetonide 0.1 % Triamcinolone Acetonide 0.1 % 06/26/2020 12:00:00 AM EST active Triamcinolone Acetonide 0.1 % eCW1 ([facility]) Triamcinolone Acetonide 1 MG/ML Topical Cream Triamcin olone Acetonide 0.1 % Triamcinolone Acetonide 0.1 % 06/26/2020 12:00:00 AM EST active Triamcinolone Acetonide 0.1 % eCW1 ([facility]) Erythromycin 0.005 MG/MG Ophthalmic Ointment Erythromy selene 5 MG/GM Erythromycin 5 MG/GM 06/26/2020 12:00:00 AM EST active Erythromycin 5 MG/GM eCW1 ([facility]) Augmentin 875-125 MG UNK 06/26/2020 12:00:00 AM EST 1.0 {tablet } active Augmentin 875-125 MG eCW1 ([facility]) Erythromycin 0.005 MG/MG Ophthalmic Ointment Erythromy selene 5 MG/GM Erythromycin 5 MG/GM 06/26/2020 12:00:00 AM EST active Erythromycin 5 MG/GM eCW1 ([facility]) Erythromycin 0.005 MG/MG Ophthalmic Ointment Erythromy selene 5 MG/GM Erythromycin 5 MG/GM 06/26/2020 12:00:00 AM EST active Erythromycin 5 MG/GM eCW1 ([facility]) Prednisone 20 MG Oral Tablet PredniSONE 20 MG PredniSONE 20 MG 06/26/2020 12:00:00 AM EST 1.0 {tablet} active Pr edniSONE 20 MG eCW1 ([facility]) doxycycline hyclate 100 MG Oral Capsule Doxycycline Hy clate 100 MG Doxycycline Hyclate 100 MG 06/02/2020 12:00:00 AM EST 1.0 {capsule} active Doxycycline Hyclate 100 MG eCW1 ([facility]) doxycycline hyclate 100 MG Oral Capsule Doxycycline Hy clate 100 MG Doxycycline Hyclate 100 MG 06/02/2020 12:00:00 AM EST 1.0 {capsule} suspended Doxycycline Hyclate 100 MG eCW1 ([facility]) doxycycline hyclate 100 MG Oral Capsule Doxycycline Hy clate 100 MG Doxycycline Hyclate 100 MG 06/02/2020 12:00:00 AM EST 1.0 {capsule} suspended Doxycycline Hyclate 100 MG eCW1 ([facility]) doxycycline hyclate 100 MG Oral Capsule Doxycycline Hy clate 100 MG Doxycycline Hyclate 100 MG 06/02/2020 12:00:00 AM EST 1.0 {capsule} active Doxycycline Hyclate 100 MG eCW1 ([facility]) doxycycline hyclate 100 MG Oral Capsule Doxycycline Hy clate 100 MG Doxycycline Hyclate 100 MG 06/02/2020 12:00:00 AM EST 1.0 {capsule} suspended Doxycycline Hyclate 100 MG eCW1 ([facility]) doxycycline hyclate 100 MG Oral Capsule Doxycycline Hy clate 100 MG Doxycycline Hyclate 100 MG 06/02/2020 12:00:00 AM EST 1.0 {capsule} suspended Doxycycline Hyclate 100 MG eCW1 ([facility]) Levothyroxine Sodium 0.15 MG Oral Tablet Levothyroxine Sodium 150 MCG Levothyroxine Sodium 150 MCG 05/12/2020 12:00:00 AM EDT active Levothyroxine Sodium 150 MCG eCW1 ([facility]) Levothyroxine Sodium 0.15 MG Oral Tablet Levothyroxine Sodium 150 MCG Levothyroxine Sodium 150 MCG 05/12/2020 12:00:00 AM EDT active Levothyroxine Sodium 150 MCG eCW1 ([facility]) Levothyroxine Sodium 0.15 MG Oral Tablet Levothyroxine Sodium 150 MCG Levothyroxine Sodium 150 MCG 05/12/2020 12:00:00 AM EDT active Levothyroxine Sodium 150 MCG eCW1 ([facility]) Levothyroxine Sodium 0.15 MG Oral Tablet Levothyroxine Sodium 150 MCG Levothyroxine Sodium 150 MCG 05/12/2020 12:00:00 AM EDT active Levothyroxine Sodium 150 MCG eCW1 ([facility]) Levothyroxine Sodium 0.15 MG Oral Tablet Levothyroxine Sodium 150 MCG Levothyroxine Sodium 150 MCG 05/12/2020 12:00:00 AM EDT active Levothyroxine Sodium 150 MCG eCW1 ([facility]) Levothyroxine Sodium 0.15 MG Oral Tablet Levothyroxine Sodium 150 MCG Levothyroxine Sodium 150 MCG 05/12/2020 12:00:00 AM EDT active Levothyroxine Sodium 150 MCG eCW1 ([facility]) Levothyroxine Sodium 0.15 MG Oral Tablet Levothyroxine Sodium 150 MCG Levothyroxine Sodium 150 MCG 05/12/2020 12:00:00 AM EDT active Levothyroxine Sodium 150 MCG eCW1 ([facility]) Levothyroxine Sodium 0.15 MG Oral Tablet Levothyroxine Sodium 150 MCG Levothyroxine Sodium 150 MCG 05/12/2020 12:00:00 AM EDT active Levothyroxine Sodium 150 MCG eCW1 ([facility]) Lisinopril 5 MG Oral Tablet Lisinopril 5 MG 05/08/2020 12:00:00 AM EDT 1.0 {tablet} active Lisinopril 5 MG eCW1 ([facility]) Lisinopril 5 MG Oral Tablet Lisinopril 5 MG 05/08/2020 12:00:00 AM EDT 1.0 {tablet} active Lisinopril 5 MG eCW1 ([facility]) Lisinopril 5 MG Oral Tablet Lisinopril 5 MG 05/08/2020 12:00:00 AM EDT 1.0 {tablet} active Lisinopril 5 MG eCW1 ([facility]) Fluoxetine 10 MG Oral Capsule FLUoxetine HCl 10 MG FLUoxetin e HCl 10 MG 05/08/2020 12:00:00 AM EDT 1.0 {capsule} active FLUoxetine HCl 10 MG eCW1 ([facility]) Fluoxetine 10 MG Oral Capsule FLUoxetine HCl 10 MG FLUoxetin e HCl 10 MG 05/08/2020 12:00:00 AM EDT 1.0 {capsule} active FLUoxetine HCl 10 MG eCW1 ([facility]) Fluoxetine 10 MG Oral Capsule FLUoxetine HCl 10 MG FLUoxetin e HCl 10 MG 05/08/2020 12:00:00 AM EDT 1.0 {capsule} active FLUoxetine HCl 10 MG eCW1 ([facility]) Fluoxetine 10 MG Oral Capsule FLUoxetine HCl 10 MG FLUoxetin e HCl 10 MG 05/08/2020 12:00:00 AM EDT 1.0 {capsule} active FLUoxetine HCl 10 MG eCW1 ([facility]) Lisinopril 5 MG Oral Tablet Lisinopril 5 MG 05/08/2020 12:00:00 AM EDT 1.0 {tablet} active Lisinopril 5 MG eCW1 ([facility]) Lisinopril 5 MG Oral Tablet Lisinopril 5 MG 05/08/2020 12:00:00 AM EDT 1.0 {tablet} active Lisinopril 5 MG eCW1 ([facility]) Lisinopril 5 MG Oral Tablet Lisinopril 5 MG 05/08/2020 12:00:00 AM EDT 1.0 {tablet} active Lisinopril 5 MG eCW1 ([facility]) Lisinopril 5 MG Oral Tablet Lisinopril 5 MG 05/08/2020 12:00:00 AM EDT 1.0 {tablet} active Lisinopril 5 MG eCW1 ([facility]) Fluoxetine 10 MG Oral Capsule FLUoxetine HCl 10 MG FLUoxetin e HCl 10 MG 05/08/2020 12:00:00 AM EDT 1.0 {capsule} active FLUoxetine HCl 10 MG eCW1 ([facility]) Lisinopril 5 MG Oral Tablet Lisinopril 5 MG 05/08/2020 12:00:00 AM EDT 1.0 {tablet} active Lisinopril 5 MG eCW1 ([facility]) Fluoxetine 10 MG Oral Capsule FLUoxetine HCl 10 MG FLUoxetin e HCl 10 MG 05/08/2020 12:00:00 AM EDT 1.0 {capsule} active FLUoxetine HCl 10 MG eCW1 ([facility]) Fluoxetine 10 MG Oral Capsule FLUoxetine HCl 10 MG FLUoxetin e HCl 10 MG 05/08/2020 12:00:00 AM EDT 1.0 {capsule} active FLUoxetine HCl 10 MG eCW1 ([facility]) Fluoxetine 10 MG Oral Capsule FLUoxetine HCl 10 MG FLUoxetin e HCl 10 MG 05/08/2020 12:00:00 AM EDT 1.0 {capsule} active FLUoxetine HCl 10 MG eCW1 ([facility]) 500 mg 03/25/2020 12:00:00 AM EDT tablet [...] {tablet_with_food_or_milk} active Baclo fen 10 MG eCW1 ([facility]) Baclofen 10 MG Oral Tablet Baclofen 10 MG 02/06/2020 12:00:00 AM ED T 1.0 {tablet_with_food_or_milk} active Baclo fen 10 MG eCW1 ([facility]) Baclofen 10 MG Oral Tablet Baclofen 10 MG 02/06/2020 12:00:00 AM ED T 1.0 {tablet_with_food_or_milk} active Baclo fen 10 MG eCW1 ([facility]) Baclofen 10 MG Oral Tablet Baclofen 10 MG 02/06/2020 12:00:00 AM ED T 1.0 {tablet_with_food_or_milk} active Baclo fen 10 MG eCW1 ([facility]) Baclofen 10 MG Oral Tablet Baclofen 10 MG 02/06/2020 12:00:00 AM ED T 1.0 {tablet_with_food_or_milk} active Baclo fen 10 MG eCW1 ([facility]) Baclofen 10 MG Oral Tablet Baclofen 10 MG 02/06/2020 12:00:00 AM ED T 1.0 {tablet_with_food_or_milk} active Baclo fen 10 MG eCW1 ([facility]) Baclofen 10 MG Oral Tablet Baclofen 10 MG 02/06/2020 12:00:00 AM ED T 1.0 {tablet_with_food_or_milk} active Baclo fen 10 MG eCW1 ([facility]) Baclofen 10 MG Oral Tablet Baclofen 10 MG 02/06/2020 12:00:00 AM ED T 1.0 {tablet_with_food_or_milk} active Baclo fen 10 MG eCW1 ([facility]) Baclofen 5 MG Oral Tablet Baclofen 5 MG 12/13/2019 12:00:00 AM EDT active 1 tablet with food or milk eCW1 ([facility]) Levothyroxine Sodium 0.175 MG Oral Tablet Levothyroxin e Sodium 175 MCG Levothyroxine Sodium 175 MCG 11/30/2019 12:00:00 AM EDT active 1 tablet every morning on an empty stomach eCW1 ([facility]) Estradiol 1 MG Oral Tablet Estradiol 1 MG 11/22/2019 12:00:00 AM EDT active 1 tablet eCW1 ([facility]) Estradiol 1 MG Oral Tablet Estradiol 1 MG 11/22/2019 12:00:00 AM ED T 1.0 {tablet} active Estradiol 1 MG eCW1 ([facility]) Estradiol 1 MG Oral Tablet Estradiol 1 MG 11/22/2019 12:00:00 AM ED T 1.0 {tablet} active Estradiol 1 MG eCW1 ([facility]) Estradiol 1 MG Oral Tablet Estradiol 1 MG 11/22/2019 12:00:00 AM ED T 1.0 {tablet} active Estradiol 1 MG eCW1 ([facility]) Estradiol 1 MG Oral Tablet Estradiol 1 MG 11/22/2019 12:00:00 AM ED T 1.0 {tablet} active Estradiol 1 MG eCW1 ([facility]) Estradiol 1 MG Oral Tablet Estradiol 1 MG 11/22/2019 12:00:00 AM ED T 1.0 {tablet} active Estradiol 1 MG eCW1 ([facility]) Estradiol 1 MG Oral Tablet Estradiol 1 MG 11/22/2019 12:00:00 AM ED T 1.0 {tablet} active Estradiol 1 MG eCW1 ([facility]) Estradiol 1 MG Oral Tablet Estradiol 1 MG 11/22/2019 12:00:00 AM ED T 1.0 {tablet} active Estradiol 1 MG eCW1 ([facility]) Estradiol 1 MG Oral Tablet Estradiol 1 MG 11/22/2019 12:00:00 AM ED T 1.0 {tablet} active Estradiol 1 MG eCW1 ([facility]) Baclofen 5 MG Oral Tablet Baclofen 5 MG 09/25/2019 12:00:00 AM EDT active 1 tablet with food or milk eCW1 ([facility]) Fluconazole 150 MG Oral Tablet [Diflucan] Diflucan 150 MG Di flucan 150 MG 09/10/2019 12:00:00 AM EST active 1 tablet eCW1 ([facility]) Advanced Probiotic - Advanced Probiotic - 09/10/2019 12:00:00 AM EST active as directed eCW1 ([facility]) Fluticasone Propionate Fluticasone Propionate 09/07/2019 12:00:[address] active MEDENT ([facility] ) chlorhexidine gluconate 40 MG/ML Medicat ed Liquid Soap [Hibiclens] Hibiclens 4 % Hibiclens 4 % 08/21/2019 12:00:00 AM EST act monserrat as directed c showers eCW1 ([facility]) 800-160 mg 08/18/2019 12:00:00 AM EST tablet [...] AM EST active 1 table t eCW1 ([facility]) Loratadine 10 MG Oral Tablet [Claritin] Claritin 10 MG Radha tin 10 MG 08/08/2019 12:00:00 AM EST active 1 table t eCW1 ([facility]) Mupirocin 0.02 MG/MG Topical Ointment Mupirocin 2 % Mupiroci n 2 % 08/08/2019 12:00:00 AM EST active 1 applic ation eCW1 ([facility]) Mupirocin 0.02 MG/MG Topical Ointment Mupirocin 2 % Mupiroci n 2 % 08/08/2019 12:00:00 AM EST active 1 applic ation eCW1 ([facility]) Loratadine 10 MG Oral Tablet [Claritin] Claritin 10 MG Radha tin 10 MG 08/08/2019 12:00:00 AM EST active 1 table t eCW1 ([facility]) Loratadine 10 MG Oral Tablet [Claritin] Claritin 10 MG Radha tin 10 MG 08/08/2019 12:00:00 AM EST active 1 table t eCW1 ([facility]) Loratadine 10 MG Oral Tablet [Claritin] Claritin 10 MG Radha tin 10 MG 08/08/2019 12:00:00 AM EST active 1 table t eCW1 ([facility]) 20 mg 07/02/2019 12:00:00 AM EST tablet [...] type / Coverage type Policy ID Covered republican ID Covered republican's relationship to munoz Policy [place] Plan Information [employer] [place] P[place] 302/307 [id number] SP [id number] [employer] [place]/307 [id number] SP [id number] [place] [place] 302/307 [id number] SP [id number] EXCELLUS BCBS B [id number] S [id number] EXCELLUS H [id number] Self [id number] Medicaid [place] Medigap Part B [id number] Self [id number] Excell[employer] BCBS Health Maintenance Organization (HMO) [id number] Self [id number] [facility] [id number] Empl [id number] ANSI-Commercial [id number] ANSI-Commercial [id number] [employer]BS [place] PPO 302/307 [id number] SP [id number] [employer]CELL[employer] BCBS [id number] [place] YND [id number] Blue Ppo Health Maintenance Organization (HMO) [id number] Self [id number] ANSI-Commercial [id number] ANSI-Commercial [id number] ANSI-Commercial [id number] ANSI-Commercial [id number] ANSI-Commercial [id number] ANSI-Commercial [id number] EXCELLUS BCBS PI PI ANSI-Commercial [id number] ANSI-Commercial [id number] ANSI-Commercial [id number] ANSI-Commercial [id number] [employer] [id number] Blue [employer] Blue Shield P [id number] SELF [id number] [employer] [id number] [employer] [id number] [employer] [id number] ANSI-Commercial [id number] ANSI-Commercial [id number] ANSI-Commercial [id number] ANSI-Commercial [id number] ANSI-Commercial [id number]-1x8t-39u106237975 90jyc628-y9m6-95il-0c3p-69k259476704 ANSI-Commercial 473be09v-oc30-34yv-652y-008p01f1218q 028by35y-lc80-83db-891h-191l64i9394p ANSI-Commercial 77u4o1l5-h634-1j58-pt80-15j2537rm3qi 85t9l7z7-k315-0o21-wh70-17s1331iq5yr ANSI-Commercial 44xj2k06-349z-7018-x3hl-o19llc149xff 38dn3s42-270d-7087-y3da-p11ifp004emm ANSI-Commercial 420kg4i2-09hy-5582-x596-26fqf680z1o2 151ak2v0-87be-7381-c944-71iss642i7g2 ANSI-Commercial 17gm1e41-xa6i-24xv-j3by-j911q39655sd 20ut3r94-ey1y-73vt-w8km-i402o11669ta ANSI-Commercial 50127aed-72b3-36a0-12yv-01l23y3s3725 81290ksb-98p5-69i0-46qk-19y31w2m1985 ANSI-Commercial x864mg79-374j-98vp-ky6x-0x016ul4021e j981er29-507d-46pd-fu4y-1v253bq2888p ANSI-Commercial 5326n430-r0rh-1h2x-9n01-288u252w6912 6592e297-f8xh-1g9k-3q79-244f491c3494 ANSI-Commercial 1gpdw1rr-8457-8179-2m95-y95pcfox721k 5fwsa3du-6635-8087-7r02-y04vbrqw630m ANSI-Commercial 20r106kh-19s8-3c17-r05b-21n109e2s867 35o643rr-88i1-4k75-m26j-06k671u8s028 ANSI-Commercial 2804621o-i7x2-5687-9056-fnel4ape4gc9 5397430p-t1u9-3027-7553-uzbs0mza3ne2 ANSI-Commercial 5uf5r216-2269-3iq3-416l-4277t803u926 8ko1l518-3189-5vm8-835q-8488f881y337 ANSI-Commercial dfp69351-9379-8p10-i164-l520kjx8w846 [id number] ANSI-Commercial [id number] ANSI-Commercial [id number] ANSI-Commercial [id number] ANSI-Commercial [id number] ANSI-Commercial [id number] ANSI-Commercial [id number] ANSI-Commercial [id number] [employer] [place] P[place] 302/307 [id number] SP [id number] ANSI-Commercial [id number] ANSI-Commercial [id number] ANSI-Commercial [id number] ANSI-Commercial [id number] ANSI-Commercial [id number] ANSI-Commercial [id number] [employer] [place] PPO 302/307 [id number] SP [id number] [employer] Health Maintenance Organization (HMO) [id number] Self [id number] [employer] (HMO) [id number] Self [id number] [employer] Health Maintenance Organization (HMO) [id number] Self [id number] [employer] Health Maintenance Organization (HMO) [id number] Self [id number] [employer] [place] PPO 302/307 [id number] SP [id number] BCBS/[employer] Medigap Part B [id number] Self [id number] [facility] Ins [facility]() Workers Compensation [id number] Self [id number] BC[employer] Medigap Part B [id number] Self [id number] [facility] Ins [facility]() Workers Compensation [id number] Self [id number] [facility] Commercial [id number] Self [id number] BC[employer] Commercial [id number] Self [id number] [employer] BC[employer] Health Maintenance Organization (HMO) [id number] Self [id number] [facility] INSURANCE [facility] [id number] SP [id number] [facility] [id number] SP [id number] [facility] O [id number] S [id number] STATE INS [facility] [id number] Empl [id number] [facility] Commercial Self BCBS/[employer] Commercial Self [facility] Commercial Self WORKERS COMPENSATION GENERIC W [id number] Self [id number] [employer] INS NO FAULT [id number] SP [id number] STATE [employer] INS NO FAULT [id number] SP [id number] STATE [employer]ARM [employer] O [id number] S [id number] [employer] Workers Compensation Self [facility] [id number] SP [id number] SELF PAY UNAVAILABLE SP UNAVAILA BLE SELF PAY SP UNAVAILABLE S UNAVAILA BLE [id number] Surgeries/Procedures Procedure Description Date Indications Data Source(s) Immunization: Flublok Quadrivalent (18 years & older) 0.5mL IM (Influenza) 05/08/2020 12:00:00 AM EDT eCW1 ([facility]) TeleMedicine Est. Pt. Level 4 11/07/2019 12:00:00 AM E DT eCW1 ([facility]) Social History Code Duration Value Status Description Data Source(s ) Smoking 06/25/2020 12:00:00 AM EST Never Smoker completed Never S moker eCW1 ([facility]) Smoking 06/25/2020 12:00:00 AM EST Never Smoker completed Never S moker eCW1 ([facility]) Smoking 06/25/2020 12:00:00 AM EST Never Smoker completed Never S moker eCW1 ([facility]) Smoking 06/25/2020 12:00:00 AM EST Never Smoker completed Never S moker eCW1 ([facility]) Smoking 06/02/2020 12:00:00 AM EST Never Smoker completed Never S moker eCW1 ([facility]) Smoking 06/02/2020 12:00:00 AM EST Never Smoker completed Never S moker eCW1 ([facility]) Smoking 05/08/2020 12:00:00 AM EDT Never Smoker completed Never S moker eCW1 ([facility]) Smoking 05/08/2020 12:00:00 AM EDT Never Smoker completed Never S moker eCW1 ([facility]) Smoking 03/03/2020 12:00:00 AM EDT Non Smoker completed Non Smoke r MEDENT ([facility], ) Vital Signs ID Date Data Source UNK Name Value Range Interpretation Code Description Data Source(s) Diastolic blood pressure 72 mm[Hg] 72 mm[Hg] eCW1 ([facility]) Systolic blood pressure 124 mm[Hg] 124 mm[Hg] e CW1 ([facility]) Body temperature 98.4 [degF] 98.4 [degF] eCW1 ( [facility]) Respiratory rate 18 /min 18 /min eCW1 ([facility]) Heart rate 88 /min 88 /min eCW1 ([facility]) Body mass index (BMI) [Ratio] 45.17 kg/m2 45.17 kg/m2 W1 ([facility]) Body height 62 [in_i] 62 [in_i] eCW1 ([facility]) Body weight 247 [lb_av] 247 [lb_av] eCW1 ([facility]) Diastolic blood pressure 70 mm[Hg] 70 mm[Hg] eCW1 ([facility]) Systolic blood pressure 110 mm[Hg] 110 mm[Hg] e CW1 ([facility]) Body temperature 97.2 [degF] 97.2 [degF] eCW1 ( [facility]) Respiratory rate 18 /min 18 /min eCW1 ([facility]) Heart rate 110 /min 110 /min eCW1 ([facility]) Body mass index (BMI) [Ratio] 44.81 kg/m2 44.81 kg/m2 eCW1 ([facility]) Body height 62 [in_i] 62 [in_i] eCW1 ([facility]) Body weight 245 [lb_av] 245 [lb_av] eCW1 ([facility]) Diastolic blood pressure 80 mm[Hg] 80 mm[Hg] eCW1 ([facility]) Systolic blood pressure 118 mm[Hg] 118 mm[Hg] e CW1 ([facility]) Body temperature 97.4 [degF] 97.4 [degF] eCW1 ( [facility]) Respiratory rate 18 /min 18 /min eCW1 ([facility]) Heart rate 103 /min 103 /min eCW1 ([facility]) Body mass index (BMI) [Ratio] 45.83 kg/m2 45.83 kg/m2 W1 ([facility]) Body height 62 [in_i] 62 [in_i] eCW1 ([facility]) Body weight 250.6 [lb_av] 250.6 [lb_av] eCW1 ([facility]) Body weight 112.663 kg 112.663 kg MEDENT ([facility], ) Body mass index (BMI) [Ratio] 46.9 kg/m2 46.9 k g/m2 MEDENT ([facility], ) Body weight 248.38 [lb_av] 248.38 [lb_av] MEDEN T ([facility], ) Body height 61 [in_i] 61 [in_i] MEDENT ([facility], ) 5'1" Body temperature 98.6 [degF] 98.6 [degF] MEDENT ([facility], ) Oxygen saturation in Arterial blood by Pulse oximetry 98 % 98 % [facility] ([facility], ) Heart rate 71 /min 71 /min [facility] ([facility]) Diastolic blood pressure 78 mm[Hg] 78 mm[Hg] [facility] ([facility]) Systolic blood pressure 126 mm[Hg] 126 mm[Hg] M EDENT ([facility]) Diastolic blood pressure 84 mm[Hg] 84 mm[Hg] eCW1 ([facility]) Systolic blood pressure 122 mm[Hg] 122 mm[Hg] e CW1 ([facility]) Body temperature 97.9 [degF] 97.9 [degF] eCW1 ( [facility]) Respiratory rate 16 /min 16 /min eCW1 ([facility]) Heart rate 85 /min 85 /min eCW1 ([facility]) Body mass index (BMI) [Ratio] 46.78 kg/m2 46.78 kg/m2 eCW1 ([facility]) Body height 62 [in_i] 62 [in_i] eCW1 ([facility]) Body weight 255.8 [lb_av] 255.8 [lb_av] eCW1 ([facility]) Body weight 107.050 kg 107.050 kg [facility] ([facility]) Body mass index (BMI) [Ratio] 44.6 kg/m2 44.6 k g/m2 [facility] ([facility]) Body weight 236.00 [lb_av] 236.00 [lb_av] MEDEN T ([facility]) Body height 61 [in_i] 61 [in_i] [facility] ([facility]) 5'1" Body height 62 [in_us] 62 [in_us] eCW1 ([facility]) Body weight Measured 247.6 [lb_av] 247.6 [lb_av ] eCW1 ([facility]) Diastolic blood pressure 76 mm[Hg] 76 mm[Hg] eCW1 ([facility]) Systolic blood pressure 116 mm[Hg] 116 mm[Hg] e CW1 ([facility]) Body temperature 974 [degF] 974 [degF] eCW1 ([facility]) Respiratory rate 17 /min 17 /min eCW1 ([facility]) Heart rate 84 /min 84 /min eCW1 ([facility]) Body mass index (BMI) [Ratio] 45.28 kg/m2 45.28 kg/m2 eCW1 ([facility]) Diastolic blood pressure 68 mm[Hg] 68 mm[Hg] eCW1 ([facility]) Systolic blood pressure 114 mm[Hg] 114 mm[Hg] e CW1 ([facility]) Body temperature 98.4 [degF] 98.4 [degF] eCW1 ( [facility]) Respiratory rate 18 /min 18 /min eCW1 ([facility]) Heart rate 88 /min 88 /min eCW1 ([facility]) Body mass index (BMI) [Ratio] 44.92 kg/m2 44.92 kg/m2 W1 ([facility]) Body height 62 [in_us] 62 [in_us] eCW1 ([facility]) Body weight Measured 245.6 [lb_av] 245.6 [lb_av ] eCW1 ([facility]) Body weight 107.050 kg 107.050 kg [facility] ([facility], ) Body mass index (BMI) [Ratio] 44.6 kg/m2 44.6 k g/m2 MED[facility] ([facility], ) Body weight 236.00 [lb_av] 236.00 [lb_av] MEDEN T ([facility], ) Body height 61 [in_i] 61 [in_i] MEDENT ([facility], ) 5'1" Diastolic blood pressure 74 mm[Hg] 74 mm[Hg] eCW1 ([facility]) Systolic blood pressure 112 mm[Hg] 112 mm[Hg] e CW1 ([facility]) Body temperature 97.0 [degF] 97.0 [degF] eCW1 ( [facility]) Respiratory rate 20 /min 20 /min eCW1 ([facility]) Heart rate 92 /min 92 /min eCW1 ([facility]) Body mass index (BMI) [Ratio] 44.07 kg/m2 44.07 kg/m2 eCW1 ([facility]) Body height 62 [in_us] 62 [in_us] eCW1 ([facility]) Body weight Measured 241 [lb_av] 241 [lb_av] eC W1 ([facility]) Systolic blood pressure 114 mm[Hg] 114 mm[Hg] e CW1 ([facility]) Body temperature 97.3 [degF] 97.3 [degF] eCW1 ( [facility]) Respiratory rate 18 /min 18 /min eCW1 ([facility]) Heart rate 86 /min 86 /min eCW1 ([facility]) Body mass index (BMI) [Ratio] 44.48 kg/m2 44.48 kg/m2 eCW1 ([facility]) Body height 62 [in_us] 62 [in_us] eCW1 ([facility]) Body weight Measured 243.2 [lb_av] 243.2 [lb_av ] eCW1 ([facility]) Diastolic blood pressure 64 mm[Hg] 64 mm[Hg] eCW1 ([facility]) Diastolic blood pressure 76 mm[Hg] 76 mm[Hg] eCW1 ([facility]) Systolic blood pressure 116 mm[Hg] 116 mm[Hg] e CW1 ([facility]) Body temperature 98.3 [degF] 98.3 [degF] eCW1 ( [facility]) Respiratory rate 17 /min 17 /min eCW1 ([facility]) Heart rate 76 /min 76 /min eCW1 ([facility]) Body mass index (BMI) [Ratio] 44.00 kg/m2 44.00 kg/m2 eCW1 ([facility]) Body height 62 [in_us] 62 [in_us] eCW1 ([facility]) Body weight Measured 240.6 [lb_av] 240.6 [lb_av ] eCW1 ([facility]) Patient Treatment Plan of Care Planned Activity Planned Date Details Description Data Source (s) Erythromycin 0.005 MG/MG Ophthalmic Ointment 06/26/2020 12:00:00 AM EST eCW1 ([facility]) Prednisone 20 MG Oral Tablet 06/26/2020 12:00:00 AM EST eCW1 ([facility]) Triamcinolone Acetonide 1 MG/ML Topical Cream 06/26/2020 12:00:00 A M EST eCW1 ([facility]) Augmentin 875-125 MG 06/26/2020 12:00:00 AM EST eCW1 ([facility]) Erythromycin 0.005 MG/MG Ophthalmic Ointment 06/26/2020 12:00:00 AM EST eCW1 ([facility]) Triamcinolone Acetonide 1 MG/ML Topical Cream 06/26/2020 12:00:00 A M EST eCW1 ([facility]) Prednisone 20 MG Oral Tablet 06/26/2020 12:00:00 AM EST eCW1 ([facility]) Augmentin 875-125 MG 06/26/2020 12:00:00 AM EST eCW1 ([facility]) Erythromycin 0.005 MG/MG Ophthalmic Ointment 06/26/2020 12:00:00 AM EST eCW1 ([facility]) Triamcinolone Acetonide 1 MG/ML Topical Cream 06/26/2020 12:00:00 A M EST eCW1 ([facility]) Prednisone 20 MG Oral Tablet 06/26/2020 12:00:00 AM EST eCW1 ([facility]) Augmentin 875-125 MG 06/26/2020 12:00:00 AM EST eCW1 ([facility]) doxycycline hyclate 100 MG Oral Capsule 06/02/2020 12:00:00 AM EST eCW1 ([facility]) doxycycline hyclate 100 MG Oral Capsule 06/02/2020 12:00:00 AM EST eCW1 ([facility]) Levothyroxine Sodium 0.15 MG Oral Tablet 05/12/2020 12:00:00 AM EDT eCW1 ([facility]) Levothyroxine Sodium 0.15 MG Oral Tablet 05/12/2020 12:00:00 AM EDT eCW1 ([facility]) Levothyroxine Sodium 0.15 MG Oral Tablet 05/12/2020 12:00:00 AM EDT eCW1 ([facility]) Lisinopril 5 MG Oral Tablet 05/08/2020 12:00:00 AM EDT eCW1 ([facility]) Lisinopril 5 MG Oral Tablet 05/08/2020 12:00:00 AM EDT eCW1 ([facility]) Fluoxetine 10 MG Oral Capsule 05/08/2020 12:00:00 AM EDT eCW1 ([facility]) Lisinopril 5 MG Oral Tablet 05/08/2020 12:00:00 AM EDT eCW1 ([facility]) Fluoxetine 10 MG Oral Capsule 05/08/2020 12:00:00 AM EDT eCW1 ([facility]) Baclofen 5 MG Oral Tablet 12/13/2019 12:00:00 AM EDT eCW1 ([facility]) Levothyroxine Sodium 0.175 MG Oral Tablet 11/30/2019 12:00:00 AM ED T eCW1 ([facility]) Estradiol 1 MG Oral Tablet 11/22/2019 12:00:00 AM EDT eCW1 ([facility]) Baclofen 5 MG Oral Tablet 09/25/2019 12:00:00 AM EDT eCW1 ([facility]) Fluconazole 150 MG Oral Tablet [Diflucan] 09/10/2019 12:00:00 AM ES T eCW1 ([facility]) Advanced Probiotic - 09/10/2019 12:00:00 AM EST eCW1 ([facility]) chlorhexidine gluconate 40 MG/ML Medicated Liquid Soap [Hibiclens] 08/21/2019 12:00:00 AM EST eCW1 ([facility]) Loratadine 10 MG Oral Tablet [Claritin] 08/08/2019 12:00:00 AM EST eCW1 ([facility]) Mupirocin 0.02 MG/MG Topical Ointment 08/08/2019 12:00:00 AM EST eCW1 ([facility]) Mupirocin 0.02 MG/MG Topical Ointment 08/08/2019 12:00:00 AM EST eCW1 ([facility]) Loratadine 10 MG Oral Tablet [Claritin] 08/08/2019 12:00:00 AM EST eCW1 ([facility])
--- NOTE | 2020-08-16 11:18 | REP ---
INDICATION: fall from height. COMPARISON: Comparison left knee radiographs 01 August 2018.. TECHNIQUE: Four views. FINDINGS: Four views of the left femur demonstrate osteoarthritic changes at the knee as seen on the 01 August 2018 study. Loose bodies suspected.. No fracture or subluxation is seen. No opaque foreign body noted. IMPRESSION: Osteoarthritic changes at the knee with suspected loose bodies. Unchanged from comparison radiograph. No traumatic abnormality noted.. <Electronically signed by Jae Nguyen > 08/16/20 [id number]
--- NOTE | 2020-08-16 11:19 | REP ---
INDICATION: fall from height. COMPARISON: Comparison radiograph September 13, 2006.. TECHNIQUE: Single AP view of the pelvis. FINDINGS: Bony pelvic ring is intact. No pelvic or sacral fracture is seen. Proximal femurs appear intact. The visualized bowel gas pattern is normal. SI joints and symphysis pubis are unremarkable. IMPRESSION: Negative AP view of the pelvis. <Electronically signed by Jae Nguyen > 08/16/20 [id number]
--- NOTE | 2020-08-16 11:20 | REP ---
INDICATION: fall from height. COMPARISON: Comparison radiographs 01 August 2018.. TECHNIQUE: AP and lateral views. FINDINGS: Two views of the left knee demonstrate moderate 3 compartment osteoarthritis with spurring. There is some joint space narrowing in the medial compartment. There are soft tissue ossific densities at the posterior joint line and in the posterior aspect of the intercondylar notch suggesting loose bodies. No fracture or subluxation is seen. No evidence of joint effusion.. . No opaque foreign body noted. IMPRESSION: Three compartment osteoarthritis with probable loose bodies. No traumatic abnormality noted. No significant change from comparison study.. <Electronically signed by Jae Nguyen > 08/16/20 [id number]
[2020-08-16] MEDS ORDERED: LIDO5DIS41 TOP (12:05)
[2020-08-16] MEDS ORDERED: LIDOCAINE 5% (LIDODERM) PATCH TD ONE (12:15)
[2020-08-16 12:22] VITALS: BP 127/88
[2020-08-16] MEDS ORDERED: **NOTE PATIENT COMMENT** MISC XX SCH (21:00)
== END 2020-08-16 12:33 | disposition home or self-care (01) ==
LOC: M ED 10:19
DX: S70.12XA Contusion of left thigh, initial encounter (principal); W01.0XXA Fall on same level from slipping, tripping and stumbling without subsequent striking against object, initial encounter; Y92.018 Other place in single-family (private) house as the place of occurrence of the external cause; J45.909 Unspecified asthma, uncomplicated; E03.9 Hypothyroidism, unspecified; K21.9 Gastro-esophageal reflux disease without esophagitis; Z79.899 Other long term (current) drug therapy; Z79.890 Hormone replacement therapy

== ENCOUNTER → 2020-09-19 | Outpatient (REF) | payer BC ==
[~2020-09-19] MED LIST changes: +LIDO5DIS41 TOP; -LISI-542 PO; +LISI-898 PO
[2020-09-19 13:46] LABS: BASO # 0.1 10^3/uL (0.0-0.2); BASO % 0.7 % (0.0-1.0); EOS # 0.5 10^3/uL (0.0-0.5); EOS % 5.1 % (0.0-3.0); HEMATOCRIT 42.6 % (36.0-47.0); HEMOGLOBIN 13.3 g/dl (12.0-15.5); LYMPH # 3.2 10^3/uL (1.5-5.0); LYMPH % 34.3 % (24.0-44.0); MEAN CORPUSCULAR HEMOGLOBIN 27.1 pg (27.0-33.0); MEAN CORPUSCULAR HGB CONC 31.2 g/dl (32.0-36.5); MEAN CORPUSCULAR VOLUME 86.8 fl (80.0-96.0); MONO # 0.4 10^3/uL (0.0-0.8); MONO % 4.6 % (2.0-8.0); NEUTROPHILS # 5.1 10^3/uL (1.5-8.5); NEUTROPHILS % 54.7 % (36.0-66.0); PLATELET COUNT, AUTOMATED 332 10^3/uL (150-450); RED BLOOD COUNT 4.91 10^6/uL (4.00-5.40); WHITE BLOOD COUNT 9.4 10^3/uL (4.0-10.0)
[2020-09-19 14:30] LABS: ALBUMIN 3.5 GM/DL (3.2-5.2); ALT/SGPT 20 U/L (12-78); BILIRUBIN,TOTAL 0.3 MG/DL (0.2-1.0); BLOOD UREA NITROGEN 12 MG/DL (7-18); CALCIUM LEVEL 9.4 MG/DL (8.5-10.1); CARBON DIOXIDE LEVEL 27 MEQ/L (21-32); CHLORIDE LEVEL 106 MEQ/L (98-107); CHOLESTEROL LEVEL 227 MG/DL (<200); CHOLESTEROL RISK RATIO 4.632 (<5); CREATININE FOR GFR 0.89 MG/DL (0.55-1.30); FERRITIN 17 NG/ML (8-252); FREE T4 0.85 NG/DL (0.76-1.46); GLOMERULAR FILTRATION RATE > 60.0 (>58); GLUCOSE, FASTING 89 MG/DL (70-100); HDL CHOLESTEROL 49 MG/DL (>40); IRON (FE) 32 UG/DL (50-170); LDL CHOLESTEROL 150 MG/DL (<100); NON-HDL-C 178 MG/DL; POTASSIUM SERUM 4.6 MEQ/L (3.5-5.1); SODIUM LEVEL 137 MEQ/L (136-145); THYROID STIMULATING HORMONE 0.297 uIU/ML (0.358-3.740); TOTAL PROTEIN 6.8 GM/DL (6.4-8.2); TRIGLYCERIDES LEVEL 140 MG/DL (<150)
== END ==
LOC: M SFHCPLAZ 08:50
PROVIDERS: ATTEND Physician Assistant Medical
DX: Z13.220 Encounter for screening for lipoid disorders (principal); E61.1 Iron deficiency; E03.9 Hypothyroidism, unspecified

== ENCOUNTER → 2020-09-25 | Outpatient (CLI) | payer BC ==
--- NOTE | 2020-09-25 13:42 | REPMRS ---
Patient History The patient states she has not had a clinical breast exam in over a year. Family history of colorectal cancer at age 50 in paternal uncle, breast cancer in paternal grandmother, breast cancer at age 63 in father, breast cancer in paternal aunt. Taking estrogen for 6 years. Taking unspecified hormones for 6 years. Digital Woman Screen Mammo: September 25, 2020 - Exam #: [id number] Bilateral CC and MLO view(s) were taken. Technologist: Holli Nj, Technologist Prior study comparison: May 16, 2018, digital mammo diagnostic bilateral, performed at [facility]. April 15, 2017, bilateral digital mammo screening bilat, performed at [facility]. FINDINGS: There are scattered fibroglandular densities. The Volpara volumetric breast density category is: B. There is a moderate amount of residual fibroglandular tissue which is fairly symmetric. There is no interval development of dominant mass, architectural distortion, or grouped microcalcification typical of malignancy. There has been no change in the appearance of the mammogram from the prior studies. 3-D tomosynthesis shows no additional findings. Assessment: BI-RADS/ACR category 1 mammogram. Negative Mammogram. Recommendation Breast MRI of both breasts in 6 months. Routine screening mammogram of both breasts in 1 year (for women over age 40). This patient's [facility] Lifetime Breast Cancer RIsk is estimated at 23.1 %. Annual screening Breast MRI scanniing is recommended for patient's whose lifetime risk assessment is over 20%. This mammogram was interpreted with the aid of an FDA-approved computer-aided dectection system. Electronically Signed By: Jae Nguyen MD 09/25/20 [id number]
== END ==
LOC: M WHC 12:56
PROVIDERS: ATTEND Physician Assistant Medical
DX: Z12.31 Encounter for screening mammogram for malignant neoplasm of breast (principal)

== ENCOUNTER → 2020-10-28 | Outpatient (CLI) | payer BC ==
--- NOTE | 2020-10-28 09:35 | REP ---
INDICATION: R47.81 SLURRED SPEECH. COMPARISON: None. TECHNIQUE: MRI of the brain includes axial T1, T2, FLAIR, diffusion, and gradient echo images of the brain. Sagittal T1 weighted images obtained. FINDINGS: No evidence of restricted diffusion to suggest acute infarction. No gradient echo susceptibility to suggest hemorrhage. The ventricles and extra-axial CSF spaces are within normal limits. No mass effect or midline shift. No abnormal fluid collections. On the FLAIR imaging, a few scattered nonspecific white matter changes are seen. Paranasal sinuses and mastoid air cells are clear. IMPRESSION: No acute findings. A few scattered nonspecific white matter changes are seen, within normal limits for age. <Electronically signed by Nathen Tilley > 10/28/20 [id number]
== END ==
LOC: M RAD 07:03
PROVIDERS: ATTEND Psychiatry & Neurology Neurology
DX: R47.81 Slurred speech (principal)

== ENCOUNTER → 2021-01-01 | Outpatient (REF) | payer BC ==
[~2021-01-01] MED LIST changes: -DOXY100C37 PO; +DOXY1CAP62 PO
== END ==
LOC: M SFHCWAGY 13:00
PROVIDERS: ATTEND Advanced Practice Midwife
DX: Z12.9 Encounter for screening for malignant neoplasm, site unspecified (principal)
CPT/HCPCS: 87624; G0123

== ENCOUNTER → 2021-07-08 | Outpatient (REF) ==
[~2021-07-08] MED LIST changes: +DOXY-443 PO; -DOXY1CAP62 PO
--- NOTE | 2021-07-08 15:45 | REP ---
INDICATION: BACK + KNEE PAIN COMPARISON: 08/16/2020 AP and lateral views TECHNIQUE: Five views FINDINGS: Once again, there is tricompartmental marginal osteophytosis status quo. There is medial compartmental narrowing and subchondral sclerosis status quo there is asymmetric patellofemoral joint space narrowing. There is no evidence of an acute fracture, dislocation, or subluxation. IMPRESSION: Stable appearing chronic changes. If loose intra-articular bodies are of clinical concern then consider follow-up with MRI. <Electronically signed by Deon Espinoza > 07/08/21 [id number]
--- NOTE | 2021-07-08 15:50 | REP ---
INDICATION: BACK + KNEE PAIN COMPARISON: None. TECHNIQUE: AP, lateral, coned-down views of the lumbar spine. FINDINGS: Three views of the lumbosacral spine demonstrate satisfactory alignment and lordosis without acute fracture / compression injury or subluxation. Disc spaces are relatively well maintained. IMPRESSION: 1. Age-appropriate examination without significant overt degenerative changes by radiographic evaluation. 2. No acute fracture/compression injury or subluxation. <Electronically signed by Clark Silveira > 07/08/21 [id number]
== END ==
LOC: M PLAIMG 14:40
PROVIDERS: ATTEND Internal Medicine
DX: M25.762 Osteophyte, left knee (principal); M54.50 Low back pain, unspecified; M25.562 Pain in left knee

== ENCOUNTER → 2021-07-08 | Outpatient (CLI) | payer MEDICAID | LOC: M PLALAB 14:45 | PROVIDERS: ATTEND Student in an Organized Health Care Education/Training Program | DX: E03.9 Hypothyroidism, unspecified (principal) ==

== ENCOUNTER → 2021-09-14 | Outpatient (CLI) | payer OTHER ==
[~2021-09-14] MED LIST changes: -LISI-898 PO; +LISI5TAB11 PO
== END ==
LOC: M PLAIMG 14:29
PROVIDERS: ATTEND Student in an Organized Health Care Education/Training Program
DX: M51.37 Other intervertebral disc degeneration, lumbosacral region (principal); M25.78 Osteophyte, vertebrae

== ENCOUNTER → 2021-12-08 | Outpatient (CLI) | payer OTHER ==
[~2021-12-08] MED LIST changes: +BUPR-71 PO; -BUPR150T5 PO; +FEXO-117 PO; -FEXO180T58 PO; -ZONI100C17; +ZONI100C67
[2021-12-08 17:41] LABS: FREE T4 1.08 NG/DL (0.76-1.46); THYROID STIMULATING HORMONE 0.439 uIU/ML (0.358-3.740)
== END ==
LOC: M PLALAB 14:36
PROVIDERS: ATTEND Student in an Organized Health Care Education/Training Program
DX: E03.9 Hypothyroidism, unspecified (principal)

== ENCOUNTER → 2022-02-05 | Outpatient (CLI) | payer OTHER ==
[~2022-02-05] MED LIST changes: +ALBU2.5V10 INH; -ALBU83IN INH
== END ==
LOC: M WHC 11:55
PROVIDERS: ATTEND Student in an Organized Health Care Education/Training Program
DX: Z12.31 Encounter for screening mammogram for malignant neoplasm of breast (principal)

== ENCOUNTER 2022-11-06 04:47 | Emergency (ER) | payer OTHER ==
[~2022-11-06] VITALS: Ht 157.5 cm; Wt 107.9 kg
[~2022-11-06 04:47] MED LIST changes: +CIPR0.3S37 AS; -CIPR0.3S6 AS; +MONT-5 PO; -SING10TA32 PO
[2022-11-06 06:27] LABS: BASO % 0.3 % (0.0-1.0); EOS # 0.1 10^3/uL (0.0-0.5); EOS % 1.3 % (0.0-3.0); HEMATOCRIT 41.5 % (36.0-47.0); HEMOGLOBIN 13.2 g/dl (12.0-15.5); LYMPH # 2.2 10^3/uL (1.5-5.0); LYMPH % 23.8 % (24.0-44.0); MEAN CORPUSCULAR HEMOGLOBIN 28.2 pg (27.0-33.0); MEAN CORPUSCULAR HGB CONC 31.8 g/dl (32.0-36.5); MEAN CORPUSCULAR VOLUME 88.7 fl (80.0-96.0); MONO # 0.6 10^3/uL (0.0-0.8); MONO % 6.2 % (2.0-8.0); NEUTROPHILS # 6.3 10^3/uL (1.5-8.5); PLATELET COUNT, AUTOMATED 332 10^3/uL (150-450); RED BLOOD COUNT 4.68 10^6/uL (4.00-5.40); WHITE BLOOD COUNT 9.2 10^3/uL (4.0-10.0)
[2022-11-06 06:35] LABS: LIPASE 19 U/L (12-53)
[2022-11-06 06:37] LABS: ALBUMIN 3.3 G/DL (3.2-5.2); ALKALINE PHOSPHATASE 81 U/L (46-116); ALT/SGPT 17 U/L (7.0-40); AST/SGOT 17 U/L (<34); BILIRUBIN,DIRECT 0.2 MG/DL (<0.4); BILIRUBIN,TOTAL 0.7 MG/DL (0.3-1.2); BLOOD UREA NITROGEN 10 MG/DL (9-23); CALCIUM LEVEL 8.4 MG/DL (8.5-10.1); CARBON DIOXIDE LEVEL 27 MMOL/L (20-31); CHLORIDE LEVEL 102 MMOL/L (98-107); CREATININE FOR GFR 0.86 MG/DL (0.55-1.30); GLOMERULAR FILTRATION RATE > 60.0 (>51); GLUCOSE, FASTING 90 MG/DL (60-100); POTASSIUM SERUM 4.4 MMOL/L (3.5-5.1); SODIUM LEVEL 135 MMOL/L (136-145); TOTAL PROTEIN 6.3 G/DL (5.7-8.2)
[2022-11-06] MEDS ORDERED: NS 1,000 ML IV ONE (06:55)
[2022-11-06] MEDS ORDERED: ONDANSETRON 4MG 2ML VIAL IV ONE (06:55)
[2022-11-06] MEDS ORDERED: KETOROLAC 30 MG/ML 1ML VIAL IV ONE (06:55)
[2022-11-06 09:17] VITALS: BP 134/62
== END 2022-11-06 09:24 | disposition home or self-care (01) ==
LOC: M ED 04:47
DX: K52.9 Noninfective gastroenteritis and colitis, unspecified (principal); I10 Essential (primary) hypertension; F41.9 Anxiety disorder, unspecified; F32.A Depression, unspecified; G47.33 Obstructive sleep apnea (adult) (pediatric); E03.9 Hypothyroidism, unspecified; Z79.811 Long term (current) use of aromatase inhibitors; Z79.899 Other long term (current) drug therapy
CPT/HCPCS: 74021; 80048; 80076; 83690; 85025; 96361; 96374; 99284; J1885; J2405

== ENCOUNTER 2022-11-27 16:04 | Emergency (ER) | payer OTHER ==
[~2022-11-27] VITALS: Ht 157.5 cm; Wt 105.1 kg
[2022-11-27 16:52] LABS: BASO # 0.1 10^3/uL (0.0-0.2); BASO % 0.4 % (0.0-1.0); EOS % 0.2 % (0.0-3.0); HEMATOCRIT 40.4 % (36.0-47.0); LYMPH # 2.8 10^3/uL (1.5-5.0); LYMPH % 16.9 % (24.0-44.0); MEAN CORPUSCULAR HEMOGLOBIN 28.4 pg (27.0-33.0); MEAN CORPUSCULAR HGB CONC 32.2 g/dl (32.0-36.5); MEAN CORPUSCULAR VOLUME 88.4 fl (80.0-96.0); MONO # 1.4 10^3/uL (0.0-0.8); MONO % 8.1 % (2.0-8.0); NEUTROPHILS # 12.3 10^3/uL (1.5-8.5); PLATELET COUNT, AUTOMATED 301 10^3/uL (150-450); RED BLOOD COUNT 4.57 10^6/uL (4.00-5.40); WHITE BLOOD COUNT 16.7 10^3/uL (4.0-10.0)
[2022-11-27 17:20] LABS: BILIRUBIN,DIRECT 0.3 MG/DL (<0.4); BILIRUBIN,TOTAL 1.2 MG/DL (0.3-1.2); TOTAL PROTEIN 6.4 G/DL (5.7-8.2)
[2022-11-27] MEDS ORDERED: NS 1,000 ML IV ONE (17:45)
[2022-11-27] MEDS ORDERED: KETOROLAC 30 MG/ML 1ML VIAL IV ONE (17:45)
[2022-11-27] MEDS ORDERED: ONDANSETRON 4MG 2ML VIAL IV ONE (17:45)
[2022-11-27] MEDS ORDERED: ISOVUE-370 76% 100ML VIAL As Ordered ONE (17:47)
[2022-11-27 19:30] VITALS: BP 122/63
[2022-11-27] MEDS ORDERED: cefTRIAXone SOD 1 GM in D5W MINI-BAG PLUS 50 ML IV ONE (19:30)
[2022-11-27] MEDS ORDERED: CIPR-249 PO (19:32)
[2022-11-27] MEDS ORDERED: PYRI1TAB5 PO (19:32)
== END 2022-11-27 20:04 | disposition home or self-care (01) ==
LOC: M ED 16:04
DX: N10 Acute pyelonephritis (principal); K21.9 Gastro-esophageal reflux disease without esophagitis; I10 Essential (primary) hypertension; R51.9 Headache, unspecified; J45.909 Unspecified asthma, uncomplicated; Z79.811 Long term (current) use of aromatase inhibitors; Z79.2 Long term (current) use of antibiotics; Z79.899 Other long term (current) drug therapy
CPT/HCPCS: 74177; 80047; 80076; 81001; 83605; 83690; 85025; 87088; 87186; 96361; 96374; 96375; 99284; J0696; J1885; J2405; Q9967

== ENCOUNTER → 2022-12-09 | Outpatient (REF) | payer OTHER ==
[~2022-12-09] MED LIST changes: +PYRI1TAB5 PO
== END ==
LOC: M LAB REF 16:50 → M SFHCLERA 16:50
PROVIDERS: ATTEND Student in an Organized Health Care Education/Training Program
DX: R30.0 Dysuria (principal)

== ENCOUNTER → 2022-12-28 | Outpatient (CLI) | payer OTHER ==
[2022-12-28 10:46] LABS: BASO # 0.1 10^3/uL (0.0-0.2); BASO % 1.3 % (0.0-1.0); EOS # 0.5 10^3/uL (0.0-0.5); EOS % 5.8 % (0.0-3.0); HEMATOCRIT 37.1 % (36.0-47.0); HEMOGLOBIN 11.6 g/dl (12.0-15.5); LYMPH # 3.2 10^3/uL (1.5-5.0); LYMPH % 38.6 % (24.0-44.0); MEAN CORPUSCULAR HEMOGLOBIN 28.9 pg (27.0-33.0); MEAN CORPUSCULAR HGB CONC 31.3 g/dl (32.0-36.5); MEAN CORPUSCULAR VOLUME 92.3 fl (80.0-96.0); MONO # 0.3 10^3/uL (0.0-0.8); MONO % 3.7 % (2.0-8.0); NEUTROPHILS # 4.2 10^3/uL (1.5-8.5); NEUTROPHILS % 50.2 % (36.0-66.0); PLATELET COUNT, AUTOMATED 307 10^3/uL (150-450); RED BLOOD COUNT 4.02 10^6/uL (4.00-5.40); WHITE BLOOD COUNT 8.4 10^3/uL (4.0-10.0)
[2022-12-28 11:12] LABS: TOTAL IRON BINDING CAPACITY 392 UG/DL (250-425)
[2022-12-28 11:13] LABS: ALKALINE PHOSPHATASE 86 U/L (46-116); ALT/SGPT 19 U/L (7.0-40); AST/SGOT 15 U/L (<34); BILIRUBIN,TOTAL 0.3 MG/DL (0.3-1.2); BLOOD UREA NITROGEN 14 MG/DL (9-23); CALCIUM LEVEL 8.3 MG/DL (8.5-10.1); CARBON DIOXIDE LEVEL 28 MMOL/L (20-31); CHLORIDE LEVEL 107 MMOL/L (98-107); CHOLESTEROL LEVEL 168 MG/DL (<200); CHOLESTEROL RISK RATIO 3.33 (<5); GLOMERULAR FILTRATION RATE > 60.0 (>51); GLUCOSE, FASTING 102 MG/DL (60-100); HDL CHOLESTEROL 50.4 MG/DL (>40); IRON (FE) 31 UG/DL (50-170); LDL CHOLESTEROL 82.8 MG/DL (<100); NON-HDL-C 117.6 MG/DL; PERCENT SATURATION 7.9 % (13.2-45.0); POTASSIUM SERUM 4.4 MMOL/L (3.5-5.1); SODIUM LEVEL 137 MMOL/L (136-145); TOTAL PROTEIN 5.8 G/DL (5.7-8.2); TRIGLYCERIDES LEVEL 174 MG/DL (<150)
[2022-12-28 11:15] LABS: FERRITIN 14.7 NG/ML (7.3-270.7); FREE T4 0.75 NG/DL (0.89-1.76); THYROID STIMULATING HORMONE 7.121 uIU/ML (0.55-4.78)
== END ==
LOC: M RAD 10:09
PROVIDERS: ATTEND Student in an Organized Health Care Education/Training Program
DX: E03.9 Hypothyroidism, unspecified (principal); I10 Essential (primary) hypertension; E61.1 Iron deficiency

== ENCOUNTER → 2023-02-02 | Outpatient (CLI) | payer MEDICARE, OTHER | LOC: M WHC 10:13 | PROVIDERS: ATTEND Nurse Practitioner Family | DX: Z12.31 Encounter for screening mammogram for malignant neoplasm of breast (principal) ==

== ENCOUNTER → 2023-02-02 | Outpatient (CLI) | payer MEDICARE, OTHER | LOC: M PLALAB 11:41 | PROVIDERS: ATTEND Nurse Practitioner Family | DX: Z01.419 Encounter for gynecological examination (general) (routine) without abnormal findings (principal); Z80.0 Family history of malignant neoplasm of digestive organs; R87.610 Atypical squamous cells of undetermined significance on cytologic smear of cervix (ASC-US) ==

== ENCOUNTER 2023-04-30 22:07 | Emergency (ER) | payer MEDICARE, MEDICAID ==
[~2023-04-30] VITALS: Ht 154.9 cm; Wt 113.6 kg
[2023-04-30 22:07] VITALS: TEMP 97.6; O2SAT 100
[2023-04-30] MEDS ORDERED: TIZA10TA (22:16)
[2023-04-30] MEDS ORDERED: CAND16TA17 (22:16)
[2023-04-30] MEDS ORDERED: LEVOTAB10 (22:16)
[2023-04-30] MEDS ORDERED: methylPREDNISolone 125MG 2ML VIAL As Ordered ONE (22:34)
[2023-04-30] MEDS ORDERED: methylPREDNISolone 125MG 2ML VIAL IV ONE (22:35)
[2023-04-30] MEDS: IPRATROPIUM 0.5MG/ALBUTEROL 2.5MG INH SOL UD 3ML (DUONEB) NEB SCH ×2 (22:51→22:52)
[2023-04-30 23:13] LABS: RSV AMPLIFICATION NEGATIVE (NEGATIVE)
[2023-05-01] MEDS ORDERED: PRED20TA PO (00:51)
[2023-05-01 00:54] VITALS: BP 140/80
[2023-05-02] MEDS ORDERED: ALBU2.5V10 (07:49)
[2023-05-02] MEDS ORDERED: ATOR80TA59 (07:49)
[2023-05-02] MEDS ORDERED: MOXI400T11 PO (09:04)
[2023-05-02] MEDS ORDERED: CAND16TA17 PO (23:42)
[2023-05-02] MEDS ORDERED: FLUT1AER4 INH (23:42)
[2023-05-02] MEDS ORDERED: ATOR80TA59 PO (23:42)
[2023-05-02] MEDS ORDERED: LEVOTAB10 PO (23:42)
[2023-05-02] MEDS ORDERED: ALBU2.5V10 INH (23:42)
[2023-05-02] MEDS ORDERED: BUPR200T41 PO (23:42)
[2023-05-02] MEDS ORDERED: FLUO-96 PO (23:42)
[2023-05-02] MEDS ORDERED: TIZA10TA PO (23:49)
[2023-05-02] MEDS ORDERED: VITA1CAP20 PO (23:49)
[2023-05-02] MEDS ORDERED: ALBU8.5H INH (23:49)
[2023-05-02] MEDS ORDERED: MAGN400T2 PO (23:49)
[2023-05-02] MEDS ORDERED: OYST500T92 PO (23:49)
[2023-05-02] MEDS ORDERED: ESTR62CR PV (23:49)
[2023-05-02] MEDS ORDERED: SYNT150T PO (23:49)
[2023-05-02] MEDS ORDERED: PRED20TA PO (23:49)
[2023-05-02] MEDS ORDERED: RIME75TA PO (23:49)
[2023-05-02] MEDS ORDERED: MOXI1TAB PO (23:49)
== END 2023-05-01 01:24 | disposition home or self-care (01) ==
LOC: M ED 22:07
DX: J45.901 Unspecified asthma with (acute) exacerbation (principal); K21.9 Gastro-esophageal reflux disease without esophagitis; E78.5 Hyperlipidemia, unspecified; E03.9 Hypothyroidism, unspecified; F10.10 Alcohol abuse, uncomplicated; Z79.02 Long term (current) use of antithrombotics/antiplatelets; Z79.52 Long term (current) use of systemic steroids; Z79.899 Other long term (current) drug therapy
CPT/HCPCS: 71045; 87631; 94640; 96374; 99284; J2930

== ENCOUNTER 2023-05-02 06:17 | Emergency (ER) | payer MEDICARE, OTHER ==
[~2023-05-02] VITALS: Ht 154.9 cm; Wt 113.6 kg
[~2023-05-02 06:17] MED LIST changes: +CAND16TA17; +LEVOTAB10; +TIZA10TA
[2023-05-02] MEDS ORDERED: IPRATROPIUM 0.5MG/ALBUTEROL 2.5MG INH SOL UD 3ML (DUONEB) NEB ONE (06:35)
[2023-05-02] MEDS ORDERED: methylPREDNISolone 125MG 2ML VIAL IV ONE (06:35)
[2023-05-02 07:03] LABS: BASO # 0.1 10^3/uL (0.0-0.2); BASO % 0.3 % (0.0-1.0); HEMATOCRIT 36.1 % (36.0-47.0); HEMOGLOBIN 11.6 g/dl (12.0-15.5); LYMPH # 4.4 10^3/uL (1.5-5.0); LYMPH % 17.7 % (24.0-44.0); MEAN CORPUSCULAR HEMOGLOBIN 27.7 pg (27.0-33.0); MEAN CORPUSCULAR HGB CONC 32.1 g/dl (32.0-36.5); MEAN CORPUSCULAR VOLUME 86.2 fl (80.0-96.0); MONO # 1.3 10^3/uL (0.0-0.8); MONO % 5.4 % (2.0-8.0); NEUTROPHILS # 18.6 10^3/uL (1.5-8.5); NEUTROPHILS % 75.3 % (36.0-66.0); PLATELET COUNT, AUTOMATED 348 10^3/uL (150-450); RED BLOOD COUNT 4.19 10^6/uL (4.00-5.40); WHITE BLOOD COUNT 24.7 10^3/uL (4.0-10.0)
[2023-05-02 07:20] LABS: ABG BASE EXCESS -5.8 (-2.0-2.0); ABG HCO3 17.7 MMOL/L (22.0-26.0); ABG O2 SATURATION 98.6 % (95.0-99.0); ABG PARTIAL PRESSURE CO2 29.1 mmHg (35.0-45.0); ABG PARTIAL PRESSURE O2 130.1 mmHg (75.0-100.0); ABG STANDARD HCO3 19.8 MMOL/L. (22.0-26.0); ABG TOTAL CO2 18.6 MMOL/L (22.0-29.0); ABG pH (ARTERIAL) 7.402 UNITS (7.350-7.450)
[2023-05-02 07:32] LABS: CK-MB VALUE MASS 1.6 NG/ML (<3.6)
[2023-05-02 07:34] LABS: ALBUMIN 3.3 G/DL (3.2-5.2); ALKALINE PHOSPHATASE 80 U/L (46-116); ALT/SGPT 18 U/L (7.0-40); AST/SGOT 14 U/L (<34); BILIRUBIN,DIRECT 0.2 MG/DL (<0.4); BILIRUBIN,TOTAL 0.5 MG/DL (0.3-1.2); BLOOD UREA NITROGEN 11 MG/DL (9-23); CALCIUM LEVEL 8.7 MG/DL (8.5-10.1); CARBON DIOXIDE LEVEL 21 MMOL/L (20-31); CHLORIDE LEVEL 103 MMOL/L (98-107); CPK CREATINE PHOSPHOKINASE 91 U/L (34-145); GLOMERULAR FILTRATION RATE > 60.0 (>51); GLUCOSE, FASTING 138 MG/DL (60-100); MB/CK RELATIVE INDEX 1.75 (< OR =4); POTASSIUM SERUM 4.5 MMOL/L (3.5-5.1); SODIUM LEVEL 134 MMOL/L (136-145); TOTAL PROTEIN 6.7 G/DL (5.7-8.2)
[2023-05-02 07:36] LABS: THYROID STIMULATING HORMONE 0.551 uIU/ML (0.55-4.78)
[2023-05-02] MEDS ORDERED: ATOR80TA59 (07:49)
[2023-05-02] MEDS ORDERED: ALBU2.5V10 (07:49)
[2023-05-02] MEDS ORDERED: ISOVUE-370 76% 100ML VIAL As Ordered ONE (07:57)
[2023-05-02 08:40] LABS: MB/CK RELATIVE INDEX 2.12 (< OR =4)
[2023-05-02 08:51] VITALS: O2SAT 97
[2023-05-02] MEDS ORDERED: MOXI400T11 PO (09:04)
[2023-05-02] MEDS ORDERED: MOXIFLOXACIN 400 MG TAB PO ONE (09:05)
[2023-05-02 09:13] VITALS: BP 164/77; TEMP 97.6; O2SAT 96
[2023-05-02] MEDS ORDERED: FLUT1AER4 INH (23:42)
[2023-05-02] MEDS ORDERED: CAND16TA17 PO (23:42)
[2023-05-02] MEDS ORDERED: BUPR200T41 PO (23:42)
[2023-05-02] MEDS ORDERED: FLUO-96 PO (23:42)
[2023-05-02] MEDS ORDERED: ATOR80TA59 PO (23:42)
[2023-05-02] MEDS ORDERED: ALBU2.5V10 INH (23:42)
[2023-05-02] MEDS ORDERED: LEVOTAB10 PO (23:42)
[2023-05-02] MEDS ORDERED: ALBU8.5H INH (23:49)
[2023-05-02] MEDS ORDERED: VITA1CAP20 PO (23:49)
[2023-05-02] MEDS ORDERED: SYNT150T PO (23:49)
[2023-05-02] MEDS ORDERED: MOXI1TAB PO (23:49)
[2023-05-02] MEDS ORDERED: RIME75TA PO (23:49)
[2023-05-02] MEDS ORDERED: TIZA10TA PO (23:49)
[2023-05-02] MEDS ORDERED: ESTR62CR PV (23:49)
[2023-05-02] MEDS ORDERED: MAGN400T2 PO (23:49)
[2023-05-02] MEDS ORDERED: OYST500T92 PO (23:49)
[2023-05-02] MEDS ORDERED: PRED20TA PO (23:49)
[2023-05-03] MEDS ORDERED: PRED10TA2 PO (14:27)
== END 2023-05-02 09:31 | disposition home or self-care (01) ==
LOC: EDBD 06:17 → M ED 06:17
DX: J45.901 Unspecified asthma with (acute) exacerbation (principal); J20.9 Acute bronchitis, unspecified; D72.829 Elevated white blood cell count, unspecified; E78.5 Hyperlipidemia, unspecified; I10 Essential (primary) hypertension; K21.9 Gastro-esophageal reflux disease without esophagitis; R94.31 Abnormal electrocardiogram [ECG] [EKG]; F41.9 Anxiety disorder, unspecified; F32.A Depression, unspecified; E66.9 Obesity, unspecified; Z91.040 Latex allergy status; Z79.02 Long term (current) use of antithrombotics/antiplatelets; Z79.52 Long term (current) use of systemic steroids; Z79.899 Other long term (current) drug therapy

== ENCOUNTER 2023-05-02 20:29 | Observation (INO) | payer MEDICARE, OTHER ==
[~2023-05-02] VITALS: Ht 154.9 cm; Wt 118.1 kg
[~2023-05-02 20:29] MED LIST changes: +ALBU2.5V10; +ATOR80TA59; +MOXI400T11 PO
[2023-05-02] MEDS ORDERED: buPROPion (WELLBUTRIN SR) 100 MG SR TAB PO SCH (21:00)
[2023-05-02] MEDS ORDERED: MONTELUKAST 10 MG TAB PO SCH (21:00)
[2023-05-02] MEDS ORDERED: ALBUTEROL SULFATE 2.5MG/0.5ML INH NEB SOLN INH ONE (21:20)
[2023-05-02] MEDS ORDERED: IPRATROPIUM 0.5MG/ALBUTEROL 2.5MG INH SOL UD 3ML (DUONEB) NEB ONE (21:20)
[2023-05-02] MEDS ORDERED: methylPREDNISolone 40MG 1ML VIAL IV ONE (21:20)
[2023-05-02 21:47] LABS: BASO % 0.2 % (0.0-1.0); HEMATOCRIT 36.4 % (36.0-47.0); HEMOGLOBIN 12.1 g/dl (12.0-15.5); LYMPH % 10.3 % (24.0-44.0); MEAN CORPUSCULAR HEMOGLOBIN 28.3 pg (27.0-33.0); MEAN CORPUSCULAR HGB CONC 33.2 g/dl (32.0-36.5); MEAN CORPUSCULAR VOLUME 85.2 fl (80.0-96.0); MONO # 0.9 10^3/uL (0.0-0.8); MONO % 4.6 % (2.0-8.0); NEUTROPHILS # 16.3 10^3/uL (1.5-8.5); NEUTROPHILS % 83.8 % (36.0-66.0); PLATELET COUNT, AUTOMATED 349 10^3/uL (150-450); RED BLOOD COUNT 4.27 10^6/uL (4.00-5.40); WHITE BLOOD COUNT 19.5 10^3/uL (4.0-10.0)
[2023-05-02 22:12] LABS: BLOOD UREA NITROGEN 13 MG/DL (9-23); CALCIUM LEVEL 8.8 MG/DL (8.5-10.1); CARBON DIOXIDE LEVEL 21 MMOL/L (20-31); CHLORIDE LEVEL 108 MMOL/L (98-107); CREATININE FOR GFR 0.72 MG/DL (0.55-1.30); GLOMERULAR FILTRATION RATE > 60.0 (>51); GLUCOSE, FASTING 136 MG/DL (60-100); POTASSIUM SERUM 4.4 MMOL/L (3.5-5.1); SODIUM LEVEL 139 MMOL/L (136-145)
[2023-05-02 22:24] LABS: PROCALCITONIN <0.04 ng/ml
[2023-05-02 22:50] LABS: RSV AMPLIFICATION NEGATIVE (NEGATIVE)
[2023-05-02] MEDS ORDERED: FLUT1AER4 INH (23:42)
[2023-05-02] MEDS ORDERED: LEVOTAB10 PO (23:42)
[2023-05-02] MEDS ORDERED: ALBU2.5V10 INH (23:42)
[2023-05-02] MEDS ORDERED: ATOR80TA59 PO (23:42)
[2023-05-02] MEDS ORDERED: FLUO-96 PO (23:42)
[2023-05-02] MEDS ORDERED: BUPR200T41 PO (23:42)
[2023-05-02] MEDS ORDERED: CAND16TA17 PO (23:42)
[2023-05-02] MEDS ORDERED: MAGN400T2 PO (23:49)
[2023-05-02] MEDS ORDERED: VITA1CAP20 PO (23:49)
[2023-05-02] MEDS ORDERED: PRED20TA PO (23:49)
[2023-05-02] MEDS ORDERED: SYNT150T PO (23:49)
[2023-05-02] MEDS ORDERED: TIZA10TA PO (23:49)
[2023-05-02] MEDS ORDERED: MOXI1TAB PO (23:49)
[2023-05-02] MEDS ORDERED: ESTR62CR PV (23:49)
[2023-05-02] MEDS ORDERED: ALBU8.5H INH (23:49)
[2023-05-02] MEDS ORDERED: OYST500T92 PO (23:49)
[2023-05-02] MEDS ORDERED: RIME75TA PO (23:49)
[2023-05-02] MEDS ORDERED: HOME MED LIST COMPLETE! XX SCH (23:50)
[2023-05-03] MEDS ORDERED: NS 1,000 ML IV SCH (00:40)
[2023-05-03] MEDS ORDERED: ALBUTEROL SULFATE 2.5MG/0.5ML INH NEB SOLN NEB PRN (00:50)
[2023-05-03] MEDS ORDERED: methylPREDNISolone 40MG 1ML VIAL IV SCH (02:00)
[2023-05-03] MEDS ORDERED: DEXTROMETHORPHAN 60MG/10ML SUSP 90ML BTL(DELSYM) PO PRN (02:00)
[2023-05-03] MEDS: IPRATROPIUM 0.5MG/ALBUTEROL 2.5MG INH SOL UD 3ML (DUONEB) NEB SCH ×3 (02:49→14:08)
[2023-05-03] MEDS: methylPREDNISolone 40MG 1ML VIAL IV SCH ×2 (05:26→10:00)
[2023-05-03] MEDS ORDERED: LEVOTHYROXINE 150MCG TABLET (0.15MG) PO SCH (06:00)
[2023-05-03 06:11] VITALS: TEMP 98.1
[2023-05-03] MEDS: HEPARIN SOD (PORCINE) 5000UNITS/ML 1ML VIAL/SYRINGE SC SCH ×2 (07:55→13:15)
[2023-05-03] MEDS ORDERED: ADVAIR HFA 45/21MCG INHALER INH SCH (08:00)
[2023-05-03 08:07] LABS: BLOOD UREA NITROGEN 16 MG/DL (9-23); CALCIUM LEVEL 8.6 MG/DL (8.5-10.1); CARBON DIOXIDE LEVEL 22 MMOL/L (20-31); CHLORIDE LEVEL 105 MMOL/L (98-107); CREATININE FOR GFR 0.72 MG/DL (0.55-1.30); GLOMERULAR FILTRATION RATE > 60.0 (>51); GLUCOSE, FASTING 119 MG/DL (60-100); MAGNESIUM LEVEL 2.1 MG/DL (1.8-2.4); POTASSIUM SERUM 4.3 MMOL/L (3.5-5.1); SODIUM LEVEL 137 MMOL/L (136-145)
[2023-05-03 08:27] LABS: BASO % 0.1 % (0.0-1.0); HEMATOCRIT 35.3 % (36.0-47.0); HEMOGLOBIN 11.4 g/dl (12.0-15.5); LYMPH # 2.1 10^3/uL (1.5-5.0); LYMPH % 10.2 % (24.0-44.0); MEAN CORPUSCULAR HEMOGLOBIN 27.8 pg (27.0-33.0); MEAN CORPUSCULAR HGB CONC 32.3 g/dl (32.0-36.5); MEAN CORPUSCULAR VOLUME 86.1 fl (80.0-96.0); MONO # 0.5 10^3/uL (0.0-0.8); MONO % 2.3 % (2.0-8.0); NEUTROPHILS # 17.6 10^3/uL (1.5-8.5); PLATELET COUNT, AUTOMATED 289 10^3/uL (150-450); WHITE BLOOD COUNT 20.4 10^3/uL (4.0-10.0)
[2023-05-03] MEDS ORDERED: MOXIFLOXACIN 400 MG TAB PO SCH (09:00)
[2023-05-03] MEDS ORDERED: estradioL 1 MG TAB PO SCH (09:00)
[2023-05-03] MEDS ORDERED: FLUoxetine 20MG CAP PO SCH ×2 (09:00)
[2023-05-03] MEDS ORDERED: ATORVASTATIN 20 MG TAB PO SCH (09:00)
[2023-05-03] MEDS ORDERED: CANDESARTAN 16MG TABLET PO SCH (09:00)
[2023-05-03] MEDS ORDERED: tiZANidine 4 MG TAB PO SCH (09:00)
[2023-05-03] MEDS ORDERED: PANTOPRAZOLE 40MG TAB (PROTONIX) PO SCH (09:00)
[2023-05-03] MEDS ORDERED: PRED10TA2 PO (14:27)
[2023-05-03 14:32] VITALS: BP 131/76; O2SAT 97
== END 2023-05-03 14:36 | disposition home or self-care (01) ==
LOC: M ED 20:29 → M ED INP 20:30 → UNDODISOB 05-04 14:36
PROVIDERS: ADMIT Internal Medicine; ATTEND Internal Medicine
DX: J45.21 Mild intermittent asthma with (acute) exacerbation (principal); K21.9 Gastro-esophageal reflux disease without esophagitis; E78.5 Hyperlipidemia, unspecified; E03.9 Hypothyroidism, unspecified; G47.33 Obstructive sleep apnea (adult) (pediatric); F32.A Depression, unspecified; R06.02 Shortness of breath; E66.9 Obesity, unspecified; Z68.42 Body mass index [BMI] 45.0-49.9, adult; J20.9 Acute bronchitis, unspecified; D72.829 Elevated white blood cell count, unspecified; I10 Essential (primary) hypertension; R94.31 Abnormal electrocardiogram [ECG] [EKG]; F41.9 Anxiety disorder, unspecified; Z91.040 Latex allergy status; Z79.02 Long term (current) use of antithrombotics/antiplatelets; Z79.52 Long term (current) use of systemic steroids; Z79.899 Other long term (current) drug therapy
CPT/HCPCS: 36415; 36600; 71045; 71046; 71275; 80048; 80076; 82550; 82553; 82803; 83735; 83880; 84145; 84443; 84484; 85025; 85379; 87486; 87581; 87631; 87633; 87798; 93005; 93041; 94640; 94760; 96361; 96372; 96374; 96376; 99285; G0378; J2920; J2930; Q9967

== ENCOUNTER 2023-05-17 07:01 | Day surgery (SDC) | payer MEDICARE, OTHER ==
[~2023-05-17] VITALS: Ht 154.9 cm; Wt 115.7 kg
[~2023-05-17 07:01] MED LIST changes: +ALBU8.5H INH; +ATOR80TA59 PO; +BUPR200T41 PO; +CAND16TA17 PO; +ESTR62CR PV; +FLUO-96 PO; +FLUT1AER4 INH; +LEVOTAB10 PO; +MAGN400T2 PO; +MOXI1TAB PO; +OYST500T92 PO; +PRED10PA PO; +PRED10TA2 PO; +RIME75TA PO; +SYNT150T PO; +TIZA10TA PO; +VITA1CAP20 PO
[2023-05-17] MEDS ORDERED: propofoL 200 MG/20 ML VIAL As Ordered ONE ×3 (07:31→08:51)
[2023-05-17] MEDS ORDERED: fentaNYL 100 MCG/2 ML INJECTION As Ordered ONE (07:31)
[2023-05-17] MEDS ORDERED: LIDOCAINE 2% 100MG/5ML SDV (FOR ANES.) As Ordered ONE (08:20)
[2023-05-17 08:54] VITALS: TEMP 97
[2023-05-17 09:25] VITALS: BP 126/60; O2SAT 98
== END 2023-05-17 09:25 | disposition home or self-care (01) ==
LOC: M OPP 07:01
PROVIDERS: ATTEND Internal Medicine Gastroenterology
DX: Z80.0 Family history of malignant neoplasm of digestive organs (principal); K64.4 Residual hemorrhoidal skin tags; K64.8 Other hemorrhoids; K57.30 Diverticulosis of large intestine without perforation or abscess without bleeding; K29.70 Gastritis, unspecified, without bleeding; K31.89 Other diseases of stomach and duodenum; K22.4 Dyskinesia of esophagus; K31.A0 Gastric intestinal metaplasia, unspecified; Z79.02 Long term (current) use of antithrombotics/antiplatelets; Z79.51 Long term (current) use of inhaled steroids; Z79.52 Long term (current) use of systemic steroids; Z79.890 Hormone replacement therapy; Z79.899 Other long term (current) drug therapy
CPT/HCPCS: 43239; 88305; G0105; J3010

== ENCOUNTER 2023-07-14 20:58 | Inpatient (IN) | payer MEDICARE ==
[2023-07-13 02:26] VITALS: BP 129/91; TEMP 98; O2SAT 95
[~2023-07-14] VITALS: Ht 167.6 cm; Wt 117.4 kg
[2023-07-14 21:26] LABS: VENOUS BASE EXCESS -1.1 (-2.0-2.0); VENOUS HCO3 25.1 MMOL/L (23.0-27.0); VENOUS O2 SATURATION 52.4 % (60.0-80.0); VENOUS PARTIAL PRESSURE CO2 48.1 mmHg (38.0-50.0); VENOUS PARTIAL PRESSURE O2 31.4 mmHg (30.0-50.0); VENOUS PH 7.336 UNITS (7.330-7.430); VENOUS STANDARD HCO3 22.6 MMOL/L; VENOUS TOTAL CO2 26.6 MMOL/L (24.0-28.0)
[2023-07-14 21:32] LABS: BASO # 0.1 10^3/uL (0.0-0.2); BASO % 0.8 % (0.0-1.0); EOS # 0.1 10^3/uL (0.0-0.5); EOS % 1.2 % (0.0-3.0); HEMATOCRIT 36.7 % (36.0-47.0); HEMOGLOBIN 11.6 g/dl (12.0-15.5); LYMPH # 3.5 10^3/uL (1.5-5.0); LYMPH % 30.6 % (24.0-44.0); MEAN CORPUSCULAR HEMOGLOBIN 27.7 pg (27.0-33.0); MEAN CORPUSCULAR HGB CONC 31.6 g/dl (32.0-36.5); MEAN CORPUSCULAR VOLUME 87.6 fl (80.0-96.0); MONO # 0.6 10^3/uL (0.0-0.8); MONO % 4.9 % (2.0-8.0); NEUTROPHILS % 62.3 % (36.0-66.0); PLATELET COUNT, AUTOMATED 313 10^3/uL (150-450); RED BLOOD COUNT 4.19 10^6/uL (4.00-5.40); WHITE BLOOD COUNT 11.3 10^3/uL (4.0-10.0)
[2023-07-14] MEDS ORDERED: CHARCOAL ACTIVATED LIQUID 25GM/120ML BTL PO ONE (21:40)
[2023-07-14 22:00] LABS: ETHYL ALCOHOL (ETHANOL) < 0.003 % (0.000-0.010)
[2023-07-14 22:01] LABS: ALBUMIN 3.2 G/DL (3.2-5.2); ALKALINE PHOSPHATASE 57 U/L (46-116); ALT/SGPT 22 U/L (7.0-40); AST/SGOT 19 U/L (<34); BILIRUBIN,DIRECT 0.2 MG/DL (<0.4); BILIRUBIN,TOTAL 0.7 MG/DL (0.3-1.2); BLOOD UREA NITROGEN 13 MG/DL (9-23); CALCIUM LEVEL 8.3 MG/DL (8.5-10.1); CARBON DIOXIDE LEVEL 26 MMOL/L (20-31); CHLORIDE LEVEL 102 MMOL/L (98-107); CREATININE FOR GFR 0.86 MG/DL (0.55-1.30); GLOMERULAR FILTRATION RATE > 60.0 (>51); GLUCOSE, FASTING 93 MG/DL (60-100); POTASSIUM SERUM 4.3 MMOL/L (3.5-5.1); SALICYLATE LEVEL < 3.0 MG/DL (<30); SODIUM LEVEL 137 MMOL/L (136-145); TOTAL PROTEIN 5.9 G/DL (5.7-8.2)
[2023-07-14 22:03] LABS: THYROID STIMULATING HORMONE 5.383 uIU/ML (0.55-4.78)
[2023-07-14 22:04] LABS: CPK CREATINE PHOSPHOKINASE 37 U/L (34-145)
[2023-07-14] MEDS ORDERED: NS 1,000 ML IV ONE (22:20)
[2023-07-15] VITALS (7 sets, daily range): BP systolic 116–156; BP diastolic 60–91; TEMP 97.8–98.3; O2SAT 94–97
[2023-07-15 00:10] LABS: AMPHETAMINES LEVEL URINE NEGATIVE (NEGATIVE); BARBITURATES URINE NEGATIVE (NEGATIVE); BENZODIAZEPINES URINE NEGATIVE (NEGATIVE); CANNABINOIDS URINE NEGATIVE (NEGATIVE); COCAINE METABOLITE URINE NEGATIVE (NEGATIVE); METHADONE URINE NEGATIVE (NEGATIVE); OPIATES URINE NEGATIVE (NEGATIVE); PHENCYCLIDINE URINE NEGATIVE (NEGATIVE)
[2023-07-15] MEDS ORDERED: NS 1,000 ML IV SCH (02:50)
[2023-07-15] MEDS ORDERED: ACETAMINOPHEN TAB 650MG DOSE (2X325MG) PO PRN (02:50)
[2023-07-15] MEDS ORDERED: hydrALAZINE 20MG/ML 1ML VIAL IV PRN (03:15)
[2023-07-15 04:53] LABS: BLOOD UREA NITROGEN 10 MG/DL (9-23); CALCIUM LEVEL 8.1 MG/DL (8.5-10.1); CARBON DIOXIDE LEVEL 26 MMOL/L (20-31); CHLORIDE LEVEL 108 MMOL/L (98-107); CREATININE FOR GFR 0.81 MG/DL (0.55-1.30); FREE T4 0.89 NG/DL (0.89-1.76); GLOMERULAR FILTRATION RATE > 60.0 (>51); GLUCOSE, FASTING 84 MG/DL (60-100); MAGNESIUM LEVEL 1.8 MG/DL (1.8-2.4); PHOSPHORUS LEVEL 4.3 MG/DL (2.5-4.9); POTASSIUM SERUM 4.4 MMOL/L (3.5-5.1); SODIUM LEVEL 141 MMOL/L (136-145)
[2023-07-15 04:55] LABS: ALBUMIN 2.9 G/DL (3.2-5.2); BILIRUBIN,DIRECT 0.2 MG/DL (<0.4); BILIRUBIN,TOTAL 0.6 MG/DL (0.3-1.2); TOTAL PROTEIN 5.6 G/DL (5.7-8.2)
[2023-07-15] MEDS ORDERED: SYNT125T PO (06:04)
[2023-07-15] MEDS ORDERED: HOME MED LIST COMPLETE! XX SCH (06:05)
[2023-07-15 07:26] LABS: BASO # 0.1 10^3/uL (0.0-0.2); EOS # 0.2 10^3/uL (0.0-0.5); EOS % 1.9 % (0.0-3.0); HEMATOCRIT 34.5 % (36.0-47.0); HEMOGLOBIN 11.1 g/dl (12.0-15.5); LYMPH # 3.6 10^3/uL (1.5-5.0); LYMPH % 40.5 % (24.0-44.0); MEAN CORPUSCULAR HEMOGLOBIN 27.8 pg (27.0-33.0); MEAN CORPUSCULAR HGB CONC 32.2 g/dl (32.0-36.5); MEAN CORPUSCULAR VOLUME 86.5 fl (80.0-96.0); MONO # 0.6 10^3/uL (0.0-0.8); MONO % 6.2 % (2.0-8.0); NEUTROPHILS # 4.5 10^3/uL (1.5-8.5); NEUTROPHILS % 50.1 % (36.0-66.0); PLATELET COUNT, AUTOMATED 302 10^3/uL (150-450); RED BLOOD COUNT 3.99 10^6/uL (4.00-5.40)
[2023-07-15] MEDS ORDERED: LEVOTHYROXINE 125MCG TABLET (0.125MG) PO SCH (09:00)
[2023-07-15] MEDS ORDERED: ALBUTEROL 90 MCG/ACT 8GM HFA INHALER INH PRN (12:05)
[2023-07-15] MEDS ORDERED: ALBUTEROL SULFATE 2.5MG/0.5ML INH NEB SOLN INH PRN (12:05)
[2023-07-15] MEDS: PANTOPRAZOLE 40MG TAB (PROTONIX) PO SCH ×2 (12:46→20:21)
[2023-07-15] MEDS: ATORVASTATIN 20 MG TAB PO SCH (12:46)
[2023-07-15] MEDS: CANDESARTAN 16MG TABLET PO SCH (13:55)
[2023-07-15] MEDS ORDERED: buPROPion (WELLBUTRIN SR) 100 MG SR TAB PO SCH (21:00)
[2023-07-15] MEDS ORDERED: MONTELUKAST 10 MG TAB PO SCH (21:00)
[2023-07-16 03:48] VITALS: BP 144/83; TEMP 98.6; O2SAT 96
[2023-07-16 05:22] LABS: BASO # 0.1 10^3/uL (0.0-0.2); BASO % 0.7 % (0.0-1.0); EOS # 0.3 10^3/uL (0.0-0.5); EOS % 3.9 % (0.0-3.0); HEMATOCRIT 36.8 % (36.0-47.0); HEMOGLOBIN 11.6 g/dl (12.0-15.5); LYMPH # 4.1 10^3/uL (1.5-5.0); LYMPH % 46.9 % (24.0-44.0); MEAN CORPUSCULAR HEMOGLOBIN 27.4 pg (27.0-33.0); MEAN CORPUSCULAR HGB CONC 31.5 g/dl (32.0-36.5); MEAN CORPUSCULAR VOLUME 86.8 fl (80.0-96.0); MONO # 0.6 10^3/uL (0.0-0.8); MONO % 6.9 % (2.0-8.0); NEUTROPHILS # 3.6 10^3/uL (1.5-8.5); NEUTROPHILS % 41.4 % (36.0-66.0); PLATELET COUNT, AUTOMATED 306 10^3/uL (150-450); RED BLOOD COUNT 4.24 10^6/uL (4.00-5.40); WHITE BLOOD COUNT 8.7 10^3/uL (4.0-10.0)
[2023-07-16 05:43] LABS: BLOOD UREA NITROGEN 9 MG/DL (9-23); CALCIUM LEVEL 8.2 MG/DL (8.5-10.1); CARBON DIOXIDE LEVEL 25 MMOL/L (20-31); CHLORIDE LEVEL 109 MMOL/L (98-107); CREATININE FOR GFR 0.76 MG/DL (0.55-1.30); GLOMERULAR FILTRATION RATE > 60.0 (>51); GLUCOSE, FASTING 81 MG/DL (60-100); MAGNESIUM LEVEL 1.8 MG/DL (1.8-2.4); POTASSIUM SERUM 4.3 MMOL/L (3.5-5.1); SODIUM LEVEL 140 MMOL/L (136-145)
[2023-07-16 07:25] VITALS: BP 134/75; TEMP 98.7; O2SAT 97
[2023-07-16] MEDS: CANDESARTAN 16MG TABLET PO SCH (08:18)
[2023-07-16] MEDS: PANTOPRAZOLE 40MG TAB (PROTONIX) PO SCH (08:18)
[2023-07-16] MEDS: ATORVASTATIN 20 MG TAB PO SCH (08:18)
[2023-07-16] MEDS ORDERED: FLUoxetine 20MG CAP PO SCH (09:00)
[2023-07-16] MEDS ORDERED: LEVOTHYROXINE 125MCG TABLET (0.125MG) PO SCH (10:00)
[2023-07-16] MEDS ORDERED: AMIT10TA7 PO (10:19)
== END 2023-07-16 12:36 | disposition home health service (06) | DRG 918 ==
LOC: M ED 20:58 → EDBD 20:58 → M ED INP 23:34 → M PCU 07-15 02:20
PROVIDERS: ADMIT Internal Medicine; ATTEND Internal Medicine
DX: T43.291A Poisoning by other antidepressants, accidental (unintentional), initial encounter (principal); E87.20 Acidosis, unspecified; E03.9 Hypothyroidism, unspecified; J45.909 Unspecified asthma, uncomplicated; F32.A Depression, unspecified; I10 Essential (primary) hypertension; K21.9 Gastro-esophageal reflux disease without esophagitis; Z91.040 Latex allergy status; Z79.899 Other long term (current) drug therapy; G43.909 Migraine, unspecified, not intractable, without status migrainosus; Z79.52 Long term (current) use of systemic steroids

== ENCOUNTER 2023-08-08 07:11 | Emergency (ER) | payer MEDICARE, MEDICAID ==
[~2023-08-08] VITALS: Ht 157.5 cm; Wt 120.3 kg
[~2023-08-08 07:11] MED LIST changes: +AMIT10TA7 PO; +SYNT125T PO
[2023-08-08] MEDS ORDERED: LEVO175T2 (07:34)
[2023-08-08] MEDS ORDERED: predniSONE 20 MG TAB PO ONE (07:55)
[2023-08-08] MEDS ORDERED: ALBUTEROL SULFATE 2.5MG/0.5ML INH NEB SOLN NEB ONE (07:55)
[2023-08-08 08:45] LABS: BASO # 0.1 10^3/uL (0.0-0.2); BASO % 0.7 % (0.0-1.0); EOS # 0.1 10^3/uL (0.0-0.5); EOS % 0.5 % (0.0-3.0); HEMOGLOBIN 11.5 g/dl (12.0-15.5); LYMPH # 4.7 10^3/uL (1.5-5.0); LYMPH % 30.6 % (24.0-44.0); MEAN CORPUSCULAR HEMOGLOBIN 27.3 pg (27.0-33.0); MEAN CORPUSCULAR HGB CONC 31.9 g/dl (32.0-36.5); MEAN CORPUSCULAR VOLUME 85.5 fl (80.0-96.0); MONO % 6.3 % (2.0-8.0); NEUTROPHILS # 9.4 10^3/uL (1.5-8.5); NEUTROPHILS % 61.5 % (36.0-66.0); PLATELET COUNT, AUTOMATED 354 10^3/uL (150-450); RED BLOOD COUNT 4.21 10^6/uL (4.00-5.40); WHITE BLOOD COUNT 15.2 10^3/uL (4.0-10.0)
[2023-08-08 09:09] LABS: BLOOD UREA NITROGEN 11 MG/DL (9-23); CARBON DIOXIDE LEVEL 23 MMOL/L (20-31); CHLORIDE LEVEL 106 MMOL/L (98-107); CREATININE FOR GFR 0.74 MG/DL (0.55-1.30); GLOMERULAR FILTRATION RATE > 60.0 (>51); GLUCOSE, FASTING 93 MG/DL (60-100); POTASSIUM SERUM 5.7 MMOL/L (3.5-5.1); SODIUM LEVEL 134 MMOL/L (136-145)
[2023-08-08 09:13] LABS: RSV AMPLIFICATION NEGATIVE (NEGATIVE)
[2023-08-08] MEDS ORDERED: PRED20TA PO (11:21)
[2023-08-08] MEDS ORDERED: BENZ200C70 PO (11:21)
[2023-08-08] MEDS ORDERED: ALBU6.7H6 INH (11:21)
[2023-08-08 11:41] VITALS: BP 146/80; TEMP 97.6; O2SAT 98
== END 2023-08-08 11:57 | disposition home or self-care (01) ==
LOC: M ED 07:11
DX: J06.9 Acute upper respiratory infection, unspecified (principal); E78.5 Hyperlipidemia, unspecified; J45.909 Unspecified asthma, uncomplicated; G43.909 Migraine, unspecified, not intractable, without status migrainosus; K21.9 Gastro-esophageal reflux disease without esophagitis; Z91.040 Latex allergy status; Z79.52 Long term (current) use of systemic steroids; Z79.899 Other long term (current) drug therapy; Z79.02 Long term (current) use of antithrombotics/antiplatelets
CPT/HCPCS: 36415; 71045; 80048; 84132; 85025; 85379; 87631; 94640; 99284; J7512

== ENCOUNTER 2023-08-26 13:36 | Emergency (ER) | payer MEDICARE, MEDICAID ==
[~2023-08-26] VITALS: Ht 157.5 cm; Wt 120.9 kg
[~2023-08-26 13:36] MED LIST changes: +ALBU6.7H6 INH; +BENZ200C70 PO; +LEVO175T2
[2023-08-26 13:37] VITALS: TEMP 98.1
[2023-08-26 17:04] LABS: BASO # 0.1 10^3/uL (0.0-0.2); BASO % 0.4 % (0.0-1.0); EOS # 0.1 10^3/uL (0.0-0.5); EOS % 0.8 % (0.0-3.0); HEMATOCRIT 37.4 % (36.0-47.0); HEMOGLOBIN 11.9 g/dl (12.0-15.5); LYMPH # 4.1 10^3/uL (1.5-5.0); MEAN CORPUSCULAR HEMOGLOBIN 27.4 pg (27.0-33.0); MEAN CORPUSCULAR HGB CONC 31.8 g/dl (32.0-36.5); MONO # 0.9 10^3/uL (0.0-0.8); NEUTROPHILS # 10.4 10^3/uL (1.5-8.5); NEUTROPHILS % 66.4 % (36.0-66.0); PLATELET COUNT, AUTOMATED 298 10^3/uL (150-450); RED BLOOD COUNT 4.35 10^6/uL (4.00-5.40); WHITE BLOOD COUNT 15.7 10^3/uL (4.0-10.0)
[2023-08-26 17:15] LABS: ERYTHROCYTE SEDIMENTATION RATE 16 mm/hr (0-30)
[2023-08-26 17:33] LABS: C REACTIVE PROTEIN QUANTITATIV < 0.40 MG/DL (<1.0)
[2023-08-26 17:35] LABS: BLOOD UREA NITROGEN 18 MG/DL (9-23); CALCIUM LEVEL 8.4 MG/DL (8.5-10.1); CARBON DIOXIDE LEVEL 26 MMOL/L (20-31); CHLORIDE LEVEL 108 MMOL/L (98-107); CREATININE FOR GFR 0.75 MG/DL (0.55-1.30); GLOMERULAR FILTRATION RATE > 60.0 (>51); GLUCOSE, FASTING 88 MG/DL (60-100); POTASSIUM SERUM 4.4 MMOL/L (3.5-5.1); SODIUM LEVEL 139 MMOL/L (136-145)
[2023-08-26] MEDS ORDERED: IBUP-1022 PO (18:06)
[2023-08-26 18:16] VITALS: BP 157/72; O2SAT 99
== END 2023-08-26 18:17 | disposition home or self-care (01) ==
LOC: M ED 13:36
DX: R22.41 Localized swelling, mass and lump, right lower limb (principal); I10 Essential (primary) hypertension; E78.5 Hyperlipidemia, unspecified; G43.909 Migraine, unspecified, not intractable, without status migrainosus; J45.909 Unspecified asthma, uncomplicated; K21.9 Gastro-esophageal reflux disease without esophagitis; E03.9 Hypothyroidism, unspecified; Z91.040 Latex allergy status; Z79.52 Long term (current) use of systemic steroids; Z79.02 Long term (current) use of antithrombotics/antiplatelets; Z79.899 Other long term (current) drug therapy

== ENCOUNTER → 2023-09-15 | Outpatient (CLI) | payer MEDICARE, MEDICAID, OTHER ==
[~2023-09-15] MED LIST changes: +IBUP-1022 PO
[2023-09-15 11:18] LABS: BASO # 0.1 10^3/uL (0.0-0.2); BASO % 0.8 % (0.0-1.0); EOS # 0.3 10^3/uL (0.0-0.5); EOS % 2.3 % (0.0-3.0); HEMATOCRIT 38.7 % (36.0-47.0); HEMOGLOBIN 11.8 g/dl (12.0-15.5); LYMPH # 4.5 10^3/uL (1.5-5.0); LYMPH % 35.3 % (24.0-44.0); MEAN CORPUSCULAR HEMOGLOBIN 26.9 pg (27.0-33.0); MEAN CORPUSCULAR HGB CONC 30.5 g/dl (32.0-36.5); MEAN CORPUSCULAR VOLUME 88.4 fl (80.0-96.0); MONO # 0.6 10^3/uL (0.0-0.8); MONO % 4.9 % (2.0-8.0); NEUTROPHILS # 7.2 10^3/uL (1.5-8.5); NEUTROPHILS % 56.3 % (36.0-66.0); PLATELET COUNT, AUTOMATED 327 10^3/uL (150-450); RED BLOOD COUNT 4.38 10^6/uL (4.00-5.40); WHITE BLOOD COUNT 12.7 10^3/uL (4.0-10.0)
[2023-09-15 11:28] LABS: HEMOGLOBIN A1c 5.4 % (4.0-6.0)
[2023-09-15 11:43] LABS: THYROID STIMULATING HORMONE 0.182 uIU/ML (0.55-4.78)
[2023-09-15 11:44] LABS: ALBUMIN 2.9 G/DL (3.2-5.2); ALKALINE PHOSPHATASE 86 U/L (46-116); ALT/SGPT 22 U/L (7.0-40); AST/SGOT 14 U/L (<34); BILIRUBIN,TOTAL 0.7 MG/DL (0.3-1.2); BLOOD UREA NITROGEN 16 MG/DL (9-23); CALCIUM LEVEL 8.5 MG/DL (8.5-10.1); CARBON DIOXIDE LEVEL 28 MMOL/L (20-31); CHLORIDE LEVEL 104 MMOL/L (98-107); CREATININE FOR GFR 0.83 MG/DL (0.55-1.30); GLOMERULAR FILTRATION RATE > 60.0 (>51); GLUCOSE, FASTING 85 MG/DL (60-100); SODIUM LEVEL 139 MMOL/L (136-145)
== END ==
LOC: M WUC 08:21
PROVIDERS: ATTEND Family Medicine
DX: E03.9 Hypothyroidism, unspecified (principal); E66.01 Morbid (severe) obesity due to excess calories; Z79.899 Other long term (current) drug therapy

== ENCOUNTER → 2023-10-28 | Outpatient (CLI) | payer MEDICARE, MEDICAID ==
[2023-10-28 13:09] LABS: BASO # 0.1 10^3/uL (0.0-0.2); BASO % 0.7 % (0.0-1.0); EOS # 0.6 10^3/uL (0.0-0.5); EOS % 6.6 % (0.0-3.0); HEMATOCRIT 37.3 % (36.0-47.0); HEMOGLOBIN 11.5 g/dl (12.0-15.5); LYMPH # 3.6 10^3/uL (1.5-5.0); LYMPH % 37.8 % (24.0-44.0); MEAN CORPUSCULAR HEMOGLOBIN 26.2 pg (27.0-33.0); MEAN CORPUSCULAR HGB CONC 30.8 g/dl (32.0-36.5); MONO # 0.7 10^3/uL (0.0-0.8); MONO % 7.1 % (2.0-8.0); NEUTROPHILS # 4.5 10^3/uL (1.5-8.5); NEUTROPHILS % 47.3 % (36.0-66.0); PLATELET COUNT, AUTOMATED 323 10^3/uL (150-450); RED BLOOD COUNT 4.39 10^6/uL (4.00-5.40); WHITE BLOOD COUNT 9.5 10^3/uL (4.0-10.0)
[2023-10-28 13:39] LABS: IMMUNOGLOBULIN A 429.5 MG/DL (40-350); IMMUNOGLOBULIN G 820 MG/DL (650-1600)
[2023-10-28 13:42] LABS: IMMUNOGLOBULIN E 91.4 IU/ML (0-378)
== END ==
LOC: M PLALAB 10:15
PROVIDERS: ATTEND Allergy & Immunology Allergy
DX: D84.9 Immunodeficiency, unspecified (principal)

== ENCOUNTER 2024-01-29 13:41 | Emergency (ER) | payer MEDICAID, MEDICARE ==
[~2024-01-29] VITALS: Ht 154.9 cm; Wt 107.2 kg
[~2024-01-29 13:41] MED LIST changes: +DOXY-323 PO; -DOXY-443 PO; -FLUT1AER4 INH; +FLUT1AER6 INH
[2024-01-29 13:42] VITALS: TEMP 97.9
[2024-01-29] MEDS ORDERED: NAPR-837 PO (17:11)
[2024-01-29 17:19] VITALS: BP 117/59; O2SAT 97
== END 2024-01-29 17:20 | disposition home or self-care (01) ==
LOC: M ED 13:41
DX: M79.662 Pain in left lower leg (principal); E03.9 Hypothyroidism, unspecified; K21.9 Gastro-esophageal reflux disease without esophagitis; M19.90 Unspecified osteoarthritis, unspecified site; Y92.009 Unspecified place in unspecified non-institutional (private) residence as the place of occurrence of the external cause; Y93.89 Activity, other specified; Y99.9 Unspecified external cause status; Z91.040 Latex allergy status; Z91.048 Other nonmedicinal substance allergy status; Z79.52 Long term (current) use of systemic steroids; Z79.02 Long term (current) use of antithrombotics/antiplatelets; Z79.83 Long term (current) use of bisphosphonates; Z79.899 Other long term (current) drug therapy; M25.762 Osteophyte, left knee; M17.12 Unilateral primary osteoarthritis, left knee

== ENCOUNTER → 2024-03-21 | Outpatient (CLI) | payer MEDICARE, OTHER ==
[~2024-03-21] MED LIST changes: +NAPR-837 PO
[2024-03-28 17:07] LABS: STREP PNEUMO TYPE 12FX <0.1 ug/mL (>1.3); STREP PNEUMO TYPE 14X 9.6 ug/mL (>1.3); STREP PNEUMO TYPE 19AX 2.5 ug/mL (>1.3); STREP PNEUMO TYPE 19FX 8.9 ug/mL (>1.3); STREP PNEUMO TYPE 1X 15.6 ug/mL (>1.3); STREP PNEUMO TYPE 23FX 30.4 ug/mL (>1.3); STREP PNEUMO TYPE 3X 0.3 ug/mL (>1.3); STREP PNEUMO TYPE 4X 0.3 ug/mL (>1.3); STREP PNEUMO TYPE 6BX 3.2 ug/mL (>1.3); STREP PNEUMO TYPE 7FX 2.3 ug/mL (>1.3); STREP PNEUMO TYPE 8X 3.1 ug/mL (>1.3); STREP PNEUMO TYPE 9NX 0.2 ug/mL (>1.3); STREP PNEUMO TYPE X 0.5 ug/mL (>1.3)
== END ==
LOC: M PLALAB 09:29
PROVIDERS: ATTEND Allergy & Immunology Allergy
DX: D84.9 Immunodeficiency, unspecified (principal)

== ENCOUNTER → 2024-04-14 | Outpatient (CLI) | payer MEDICARE ==
[~2024-04-14] MED LIST changes: -DOXY-323 PO; +DOXY-441 PO
== END ==
LOC: M SLEEP 19:52
PROVIDERS: ATTEND Nurse Practitioner Adult Health
DX: G47.33 Obstructive sleep apnea (adult) (pediatric) (principal)

== ENCOUNTER 2024-04-24 13:16 | Emergency (ER) | payer MEDICARE ==
[~2024-04-24] VITALS: Ht 157.5 cm; Wt 100.4 kg
[2024-04-24 15:11] LABS: BASO # 0.1 10^3/uL (0.0-0.2); BASO % 0.6 % (0.0-1.0); EOS % 0.1 % (0.0-3.0); HEMATOCRIT 40.8 % (36.0-47.0); LYMPH # 2.6 10^3/uL (1.5-5.0); LYMPH % 22.9 % (24.0-44.0); MEAN CORPUSCULAR HEMOGLOBIN 26.9 pg (27.0-33.0); MEAN CORPUSCULAR HGB CONC 31.9 g/dl (32.0-36.5); MEAN CORPUSCULAR VOLUME 84.3 fl (80.0-96.0); MONO # 0.4 10^3/uL (0.0-0.8); MONO % 3.4 % (2.0-8.0); NEUTROPHILS # 8.3 10^3/uL (1.5-8.5); NEUTROPHILS % 72.6 % (36.0-66.0); PLATELET COUNT, AUTOMATED 328 10^3/uL (150-450); RED BLOOD COUNT 4.84 10^6/uL (4.00-5.40); WHITE BLOOD COUNT 11.4 10^3/uL (4.0-10.0)
[2024-04-24 15:36] LABS: ALBUMIN 3.5 G/DL (3.2-5.2); ALKALINE PHOSPHATASE 89 U/L (46-116); ALT/SGPT 23 U/L (7.0-40); AST/SGOT 19 U/L (<34); BILIRUBIN,DIRECT 0.1 MG/DL (<0.4); BILIRUBIN,TOTAL 0.5 MG/DL (0.3-1.2); BLOOD UREA NITROGEN 12 MG/DL (9-23); CALCIUM LEVEL 9.5 MG/DL (8.5-10.1); CARBON DIOXIDE LEVEL 21 MMOL/L (20-31); CHLORIDE LEVEL 109 MMOL/L (98-107); CREATININE FOR GFR 0.84 MG/DL (0.55-1.30); GLOMERULAR FILTRATION RATE > 60.0 (>51); GLUCOSE, FASTING 109 MG/DL (60-100); POTASSIUM SERUM 4.2 MMOL/L (3.5-5.1); SODIUM LEVEL 140 MMOL/L (136-145); TOTAL PROTEIN 7.5 G/DL (5.7-8.2)
[2024-04-24 15:45] LABS: APPEARANCE, URINE CLEAR (CLEAR); BACTERIA, URINE AUTO NEGATIVE (NEGATIVE); BILIRUBIN, URINE AUTO NEGATIVE (NEGATIVE); BLOOD, URINE BLOOD NEGATIVE (NEGATIVE); COLOR, URINE STRAW (YELLOW); GLUCOSE, URINE (UA) AUTO NEGATIVE (NEGATIVE); KETONE, URINE AUTO NEGATIVE (NEGATIVE); LEUKOCYTE ESTERASE, URINE AUTO TRACE (NEGATIVE); NITRITE, URINE AUTO NEGATIVE (NEGATIVE); PROTEIN, URINE AUTO NEGATIVE (NEGATIVE); RBC, URINE AUTO 1 /HPF (0-3); SPECIFIC GRAVITY URINE AUTO 1.004 (1.002-1.035); SQUAMOUS EPITHELIAL CELL UR AU 1 /HPF (0-6); UROBILINOGEN, URINE AUTO 0.2 mg/dL (0.0-2.0); WBC, URINE AUTO 0 /HPF (0-3)
[2024-04-24] MEDS ORDERED: ISOVUE-370 76% 100ML VIAL As Ordered ONE (16:23)
[2024-04-24 17:13] VITALS: BP 134/72; TEMP 97; O2SAT 97
== END 2024-04-24 17:20 | disposition home or self-care (01) ==
LOC: M ED 13:16
DX: R06.02 Shortness of breath (principal); G43.909 Migraine, unspecified, not intractable, without status migrainosus; K21.9 Gastro-esophageal reflux disease without esophagitis; E03.9 Hypothyroidism, unspecified; E78.5 Hyperlipidemia, unspecified; J45.909 Unspecified asthma, uncomplicated; F10.10 Alcohol abuse, uncomplicated; Z91.040 Latex allergy status; Z91.048 Other nonmedicinal substance allergy status; Z79.52 Long term (current) use of systemic steroids; Z79.02 Long term (current) use of antithrombotics/antiplatelets; Z79.1 Long term (current) use of non-steroidal anti-inflammatories (NSAID); Z79.899 Other long term (current) drug therapy
CPT/HCPCS: 36415; 71045; 71275; 80048; 80076; 81001; 85025; 87486; 87581; 87633; 87798; 93005; 99284; Q9967

== ENCOUNTER 2024-06-11 14:13 | Observation (INO) | payer MEDICARE ==
[~2024-06-11] VITALS: Ht 154.9 cm; Wt 95.5 kg
[2024-06-11 15:53] LABS: BASO # 0.1 10^3/uL (0.0-0.2); BASO % 1.3 % (0.0-1.0); EOS # 0.6 10^3/uL (0.0-0.5); EOS % 5.2 % (0.0-3.0); HEMATOCRIT 44.2 % (36.0-47.0); HEMOGLOBIN 14.6 g/dl (12.0-15.5); LYMPH # 4.1 10^3/uL (1.5-5.0); LYMPH % 37.4 % (24.0-44.0); MEAN CORPUSCULAR HEMOGLOBIN 27.8 pg (27.0-33.0); MEAN CORPUSCULAR VOLUME 84.2 fl (80.0-96.0); MONO # 0.5 10^3/uL (0.0-0.8); MONO % 4.7 % (2.0-8.0); NEUTROPHILS # 5.7 10^3/uL (1.5-8.5); NEUTROPHILS % 51.1 % (36.0-66.0); PLATELET COUNT, AUTOMATED 341 10^3/uL (150-450); RED BLOOD COUNT 5.25 10^6/uL (4.00-5.40); WHITE BLOOD COUNT 11.1 10^3/uL (4.0-10.0)
[2024-06-11 16:18] LABS: ALBUMIN 3.5 G/DL (3.2-5.2); ALKALINE PHOSPHATASE 81 U/L (35-104); ALT/SGPT 25 U/L (7.0-40); AST/SGOT 26 U/L (<34); BILIRUBIN,TOTAL 0.9 MG/DL (0.3-1.2); BLOOD UREA NITROGEN 23 MG/DL (9-23); CALCIUM LEVEL 9.2 MG/DL (8.5-10.1); CARBON DIOXIDE LEVEL 23 MMOL/L (20-31); CHLORIDE LEVEL 102 MMOL/L (98-107); CREATININE FOR GFR 1.12 MG/DL (0.55-1.30); GLOMERULAR FILTRATION RATE 54.4 (>51); GLUCOSE, FASTING 91 MG/DL (60-100); SODIUM LEVEL 133 MMOL/L (136-145); TOTAL PROTEIN 7.1 G/DL (5.7-8.2)
[2024-06-11 16:42] LABS: CK-MB VALUE MASS < 1.0 NG/ML (<3.6)
[2024-06-11 16:57] LABS: CPK CREATINE PHOSPHOKINASE 78 U/L (34-145); MB/CK RELATIVE INDEX 1.28 (< OR =4)
[2024-06-11] MEDS: MECLIZINE 25 MG TABLET PO ONE (17:45)
[2024-06-11] MEDS: NS 1,000 ML IV ONE (18:17)
[2024-06-11 18:21] LABS: INR 1.01; PARTIAL THROMBOPLASTIN TIME 31.8 SECONDS (24.8-34.2); PROTHROMBIN TIME 13.6 SECONDS (12.5-14.5)
[2024-06-11 18:26] LABS: CK-MB VALUE MASS < 1.0 NG/ML (<3.6)
[2024-06-11 18:27] LABS: CPK CREATINE PHOSPHOKINASE 44 U/L (34-145); MB/CK RELATIVE INDEX 2.27 (< OR =4)
[2024-06-11] MEDS ORDERED: CYCL-707 PO (23:02)
[2024-06-11] MEDS ORDERED: AIMO70IN2 INJ (23:02)
[2024-06-11] MEDS ORDERED: BUPR-597 PO (23:02)
[2024-06-11] MEDS ORDERED: TOPI100T9 PO (23:02)
[2024-06-11] MEDS ORDERED: FLUTISP (23:04)
[2024-06-11] MEDS ORDERED: CLAR10CA3 PO (23:04)
[2024-06-11] MEDS ORDERED: LEVO150T7 PO (23:04)
[2024-06-11] MEDS ORDERED: HOME MED LIST COMPLETE! XX SCH (23:10)
[2024-06-11] MEDS ORDERED: MOM 30ML SUSPENSION UDC PO PRN (23:20)
[2024-06-11] MEDS ORDERED: MAALOX 30 ML SUSP *UDC PO PRN (23:20)
[2024-06-12 06:45] LABS: HEMATOCRIT 38.2 % (36.0-47.0); MEAN CORPUSCULAR HEMOGLOBIN 27.6 pg (27.0-33.0); MEAN CORPUSCULAR HGB CONC 32.5 g/dl (32.0-36.5); MEAN CORPUSCULAR VOLUME 84.9 fl (80.0-96.0); PLATELET COUNT, AUTOMATED 279 10^3/uL (150-450); WHITE BLOOD COUNT 10.2 10^3/uL (4.0-10.0)
[2024-06-12 06:46] LABS: HEMOGLOBIN 12.4 g/dl (12.0-15.5)
[2024-06-12 07:05] LABS: ALBUMIN 2.9 G/DL (3.2-5.2); BILIRUBIN,TOTAL 0.6 MG/DL (0.3-1.2); CALCIUM LEVEL 8.4 MG/DL (8.5-10.1); CREATININE FOR GFR 1.07 MG/DL (0.55-1.30); GLOMERULAR FILTRATION RATE 57.3 (>51); POTASSIUM SERUM 3.5 MMOL/L (3.5-5.1); TOTAL PROTEIN 6.1 G/DL (5.7-8.2)
[2024-06-12] MEDS ORDERED: ALBUTEROL 90 MCG/ACT 8GM HFA INHALER INH PRN (07:20)
[2024-06-12] MEDS: LEVOTHYROXINE 150MCG TABLET (0.15MG) PO SCH (07:37)
[2024-06-12] MEDS: ADVAIR HFA 230/21MCG INHALER INH SCH (07:54)
[2024-06-12] MEDS ORDERED: FLUoxetine 20MG CAP PO SCH (09:00)
[2024-06-12] MEDS: PANTOPRAZOLE 40MG TAB (PROTONIX) PO SCH (10:33)
[2024-06-12] MEDS: ENOXAPARIN 40MG/0.4ML SYRINGE (J1650 PER 10MG) SC SCH (10:33)
[2024-06-12] MEDS: FLUoxetine 20MG CAP PO SCH (10:34)
[2024-06-12] MEDS: estradioL 1 MG TAB PO SCH (10:34)
[2024-06-12] MEDS: buPROPion **XL** TABLET 150MG (WELLBUTRIN XL) PO SCH (10:34)
[2024-06-12 11:39] VITALS: BP 101/65; TEMP 98.7; O2SAT 98
[2024-06-12] MEDS: FLUTICASONE PROP 0.05% NASAL SPRAY 16 GM (FLONASE) SCH (11:58)
[2024-06-12] MEDS: MECLIZINE 25 MG TABLET PO SCH (18:01)
[2024-06-12] MEDS: LORATADINE 10 MG TAB PO SCH (19:48)
[2024-06-12] MEDS: TOPIRAMATE (TopAMAX) 100 MG TAB PO SCH (19:49)
[2024-06-12] MEDS: MONTELUKAST 10 MG TAB PO SCH (19:51)
[2024-06-12] MEDS: ATORVASTATIN 20 MG TAB PO SCH (19:51)
[2024-06-12] MEDS: ACETAMINOPHEN 325 MG TAB PO PRN (19:51)
[2024-06-12 20:20] VITALS: BP 112/67; TEMP 98.9; O2SAT 97
[2024-06-13 03:40] VITALS: BP 108/64; TEMP 96.5; O2SAT 98
[2024-06-13] MEDS ORDERED: PILL CUTTER 1 EACH XX PRN (08:15)
[2024-06-13] MEDS: LR 1,000 ML IV ONE (08:42)
[2024-06-13] MEDS: CANDESARTAN 16MG TABLET PO SCH (09:40)
[2024-06-13] MEDS ORDERED: CAND8TAB8 PO (10:52)
[2024-06-13 12:02] VITALS: BP 122/71; TEMP 98.6; O2SAT 99
== END 2024-06-13 12:20 | disposition home or self-care (01) ==
LOC: M ED 14:13 → M ED INP 14:14 → EEVIPCON 14:14 → M MS4PR 06-12 11:30
PROVIDERS: ADMIT Student in an Organized Health Care Education/Training Program; ATTEND Student in an Organized Health Care Education/Training Program
DX: H81.399 Other peripheral vertigo, unspecified ear (principal); I95.2 Hypotension due to drugs; G43.709 Chronic migraine without aura, not intractable, without status migrainosus; E03.9 Hypothyroidism, unspecified; F32.A Depression, unspecified; K21.9 Gastro-esophageal reflux disease without esophagitis; J45.909 Unspecified asthma, uncomplicated; Z79.899 Other long term (current) drug therapy; Z91.040 Latex allergy status; J30.2 Other seasonal allergic rhinitis
CPT/HCPCS: 36415; 70450; 70551; 71045; 80053; 82550; 82553; 84484; 85025; 85027; 85610; 85730; 93005; 93041; 93306; 94640; 94760; 96372; 96374; 96376; 97112; 97161; 97530; 99285; G0378; J1650

== ENCOUNTER → 2024-06-20 | Outpatient (REF) | payer MEDICARE, OTHER ==
[~2024-06-20] MED LIST changes: +AIMO70IN2 INJ; +BUPR-597 PO; +CAND8TAB8 PO; +CLAR10CA3 PO; +CYCL-707 PO; -FEXO-117 PO; +FEXO-193 PO; +FLUTISP; +LEVO150T7 PO; +TOPI100T9 PO
== END ==
LOC: M SFHCLERA 09:09
PROVIDERS: ATTEND Family Medicine
DX: E03.9 Hypothyroidism, unspecified (principal)

== ENCOUNTER → 2024-07-05 | Outpatient (REF) | payer MEDICARE, OTHER | LOC: M SFHCLERA 16:44 | PROVIDERS: ATTEND Family Medicine | DX: R05.9 Cough, unspecified (principal) ==

== ENCOUNTER → 2024-11-05 | Outpatient (CLI) | payer MEDICARE, OTHER ==
[2024-11-05 13:33] LABS: BASO # 0.1 10^3/uL (0.0-0.2); BASO % 1.5 % (0.0-1.0); EOS # 1.4 10^3/uL (0.0-0.5); EOS % 15.8 % (0.0-3.0); HEMATOCRIT 38.7 % (36.0-47.0); HEMOGLOBIN 12.1 g/dl (12.0-15.5); LYMPH # 3.5 10^3/uL (1.5-5.0); LYMPH % 39.8 % (24.0-44.0); MEAN CORPUSCULAR HEMOGLOBIN 28.4 pg (27.0-33.0); MEAN CORPUSCULAR HGB CONC 31.3 g/dl (32.0-36.5); MEAN CORPUSCULAR VOLUME 90.8 fl (80.0-96.0); MONO # 0.4 10^3/uL (0.0-0.8); MONO % 5.1 % (2.0-8.0); NEUTROPHILS # 3.3 10^3/uL (1.5-8.5); NEUTROPHILS % 37.6 % (36.0-66.0); PLATELET COUNT, AUTOMATED 313 10^3/uL (150-450); RED BLOOD COUNT 4.26 10^6/uL (4.00-5.40); WHITE BLOOD COUNT 8.7 10^3/uL (4.0-10.0)
[2024-11-05 13:39] LABS: ALBUMIN 3.1 G/DL (3.2-5.2); BILIRUBIN,TOTAL 0.6 MG/DL (0.3-1.2); CALCIUM LEVEL 8.7 MG/DL (8.5-10.1); CHOLESTEROL RISK RATIO 3.22 (<5); CREATININE FOR GFR 1.12 MG/DL (0.55-1.30); GLOMERULAR FILTRATION RATE 59.2 (>51); HDL CHOLESTEROL 44.7 MG/DL (>40); LDL CHOLESTEROL 74.3 MG/DL (<100); NON-HDL-C 99.3 MG/DL; PERCENT SATURATION 16.6 % (13.2-45.0); POTASSIUM SERUM 4.1 MMOL/L (3.5-5.1); TOTAL PROTEIN 6.2 G/DL (5.7-8.2)
[2024-11-05 13:40] LABS: FERRITIN 11.7 NG/ML (7.3-270.7); THYROID STIMULATING HORMONE 2.467 uIU/ML (0.55-4.78)
== END ==
LOC: M PLALAB 10:44
PROVIDERS: ATTEND Family Medicine
DX: Z00.00 Encounter for general adult medical examination without abnormal findings (principal); D50.9 Iron deficiency anemia, unspecified; E03.9 Hypothyroidism, unspecified; E78.2 Mixed hyperlipidemia; Z79.899 Other long term (current) drug therapy

== ENCOUNTER → 2025-02-19 | Outpatient (REF) | payer MEDICARE, OTHER ==
[~2025-02-19] MED LIST changes: +AMIT10TA11 PO; -AMIT10TA7 PO; -BUPR-597 PO; +BUPR-766 PO; -BUPR1TAB56 PO; +BUPR200T45 PO; +LIDO1ADH93 TOP; -LIDO5DIS41 TOP; +TOPI-257 PO; -TOPI100T9 PO
[2025-02-19 23:01] LABS: BASO # 0.1 10^3/uL (0.0-0.2); BASO % 1.2 % (0.0-1.0); EOS # 0.9 10^3/uL (0.0-0.5); EOS % 9.3 % (0.0-3.0); LYMPH # 4.7 10^3/uL (1.5-5.0); LYMPH % 49.1 % (24.0-44.0); MONO # 0.6 10^3/uL (0.0-0.8); MONO % 6.2 % (2.0-8.0); NEUTROPHILS # 3.2 10^3/uL (1.5-8.5); NEUTROPHILS % 33.9 % (36.0-66.0); PLATELET COUNT, AUTOMATED 271 10^3/uL (150-450)
[2025-02-19 23:19] LABS: INR 1.01
[2025-02-19 23:25] LABS: ALT/SGPT 27.0 U/L (7.0-40); AST/SGOT 30.0 U/L (<34); CALCIUM LEVEL 8.8 MG/DL (8.5-10.1); CARBON DIOXIDE LEVEL 25.0 MMOL/L (20-31); CHLORIDE LEVEL 110.0 MMOL/L (98-107); CREATININE FOR GFR 1.08 MG/DL (0.55-1.30); GLOMERULAR FILTRATION RATE 61.4 (>51); POTASSIUM SERUM 4.3 MMOL/L (3.5-5.1); SODIUM LEVEL 144.0 MMOL/L (136-145)
== END ==
LOC: M LAB 22:22
PROVIDERS: ATTEND Family Medicine
DX: Z01.818 Encounter for other preprocedural examination (principal)

== ENCOUNTER 2025-05-27 16:47 | Emergency (ER) | payer MEDICARE, OTHER ==
[~2025-05-27] VITALS: Ht 157.5 cm; Wt 89.2 kg
[~2025-05-27 16:47] MED LIST changes: +CARB-19 PO; -CARB1TAB20 PO; -IBUP-1022 PO; -IBUP1TAB6 PO; +IBUP600T42 PO; +SFHIBU600 PO
[2025-05-27 17:52] LABS: BASO # 0.1 10^3/uL (0.0-0.2); BASO % 1.2 % (0.0-1.0); EOS # 0.4 10^3/uL (0.0-0.5); EOS % 4.6 % (0.0-3.0); LYMPH # 3.3 10^3/uL (1.5-5.0); LYMPH % 36.8 % (24.0-44.0); MONO # 0.6 10^3/uL (0.0-0.8); MONO % 6.1 % (2.0-8.0); NEUTROPHILS # 4.6 10^3/uL (1.5-8.5); NEUTROPHILS % 51.0 % (36.0-66.0); PLATELET COUNT, AUTOMATED 359 10^3/uL (150-450)
[2025-05-27 18:19] LABS: ALT/SGPT 37.0 U/L (7.0-40); AST/SGOT 45.0 U/L (<34); CALCIUM LEVEL 8.2 MG/DL (8.5-10.1); CARBON DIOXIDE LEVEL 22.0 MMOL/L (20-31); CHLORIDE LEVEL 109.0 MMOL/L (98-107); CREATININE FOR GFR 1.01 MG/DL (0.55-1.30); GLOMERULAR FILTRATION RATE 66.6 (>51); POTASSIUM SERUM 3.9 MMOL/L (3.5-5.1); SODIUM LEVEL 141.0 MMOL/L (136-145)
[2025-05-27 19:18] VITALS: TEMP 97.8
[2025-05-27 22:46] VITALS: BP 125/77
[2025-05-27 22:47] VITALS: O2SAT 98
== END 2025-05-27 22:55 | disposition home or self-care (01) ==
LOC: M ED 16:47
DX: R19.7 Diarrhea, unspecified (principal); E78.5 Hyperlipidemia, unspecified; D50.9 Iron deficiency anemia, unspecified; K21.9 Gastro-esophageal reflux disease without esophagitis; F41.9 Anxiety disorder, unspecified; J45.909 Unspecified asthma, uncomplicated; G43.909 Migraine, unspecified, not intractable, without status migrainosus; Z91.040 Latex allergy status; Z91.09 Other allergy status, other than to drugs and biological substances; Z79.52 Long term (current) use of systemic steroids; Z79.02 Long term (current) use of antithrombotics/antiplatelets; Z79.899 Other long term (current) drug therapy